=== PATIENT | female | born 1995 | race Caucasian/White ===

== ENCOUNTER → 2018-07-07 | Outpatient (REF) | payer OTHER | LOC: M SFHCLERA 09:52 | PROVIDERS: ATTEND Physician Assistant | DX: R05 Cough (principal) ==

== ENCOUNTER 2018-07-24 20:20 | Inpatient (IN) | payer OTHER ==
[~2018-07-24] VITALS: Ht 157.5 cm; Wt 49.1 kg
[2018-07-24] MEDS ORDERED: NS 500 ML IV ONE (21:00)
[2018-07-24 21:21] LABS: BASO # 0.1 10^3/uL (0.0-0.2); BASO % 0.8 % (0.0-1.0); EOS # 0.4 10^3/uL (0.0-0.50); EOS % 4.9 % (0.0-3.0); HEMATOCRIT 38.9 % (36.0-47.0); LYMPH # 1.7 10^3/uL (1.5-6.5); LYMPH % 23.2 % (24.0-44.0); MEAN CORPUSCULAR HEMOGLOBIN 29.1 pg (27.0-33.0); MEAN CORPUSCULAR HGB CONC 33.4 g/dl (32.0-36.5); MONO # 0.7 10^3/uL (0.0-0.8); MONO % 9.9 % (0.0-5.0); NEUTROPHILS # 4.5 10^3/uL (1.8-7.7); NEUTROPHILS % 60.9 % (36.0-66.0); PLATELET COUNT, AUTOMATED 264 10^3/uL (150-450); RED BLOOD COUNT 4.47 10^6/uL (4.00-5.40); WHITE BLOOD COUNT 7.4 10^3/uL (4.0-10.0)
[2018-07-24 21:52] LABS: INR 0.98; PROTHROMBIN TIME 13.1 SECONDS (12.1-14.4)
[2018-07-24 21:53] LABS: PARTIAL THROMBOPLASTIN TIME 29.7 SECONDS (25.4-37.6)
[2018-07-24 21:54] LABS: ALBUMIN 3.7 GM/DL (3.2-5.2); ALT/SGPT 45 U/L (12-78); BILIRUBIN,DIRECT < 0.1 MG/DL (0.0-0.2); BILIRUBIN,TOTAL 0.3 MG/DL (0.2-1.0); BLOOD UREA NITROGEN 14 MG/DL (7-18); CALCIUM LEVEL 8.3 MG/DL (8.5-10.1); CARBON DIOXIDE LEVEL 29 MEQ/L (21-32); CHLORIDE LEVEL 105 MEQ/L (98-107); CREATININE FOR GFR 0.74 MG/DL (0.55-1.30); GLOMERULAR FILTRATION RATE > 60.0 (>60); GLUCOSE, FASTING 113 MG/DL (70-100); HCG, SERUM QUANTITATIVE < 1.0 MIU/ML; POTASSIUM SERUM 4.1 MEQ/L (3.5-5.1); SODIUM LEVEL 141 MEQ/L (136-145); THYROXINE (T4) 8.3 UG/DL (4.5-12.0); TOTAL PROTEIN 7.1 GM/DL (6.4-8.2)
[2018-07-24] MEDS ORDERED: ISOVUE-370 76% 100ML VIAL (Q9967) As Ordered ONE (22:01)
--- NOTE | 2018-07-24 23:19 | REPVR ---
EXAM: CT Angiography Chest With Contrast EXAM DATE/TIME: 07/24/2018 10:23 PM CLINICAL HISTORY: 23 years old, female; Signs and symptoms; Other: Hemoptysis TECHNIQUE: Axial computed tomographic angiography images of the chest with intravenous contrast using CT angiography protocol. All CT scans at this facility use at least one of these dose optimization techniques: automated exposure control; mA and/or kV adjustment per patient size (includes targeted exams where dose is matched to clinical indication); or iterative reconstruction. Coronal and sagittal reformatted images were created and reviewed. MIP reconstructed images were created and reviewed. CONTRAST: 75 ml of ISOVUE 370 administered intravenously. COMPARISON: CR Chest, 2 view PA, Lat 07/24/2018 8:59 PM FINDINGS: Pulmonary arteries: There is opacification in of the pulmonary artery is with no evidence of pulmonary embolus. Aorta: There is opacification in of the aorta. The aorta appears intact. Thyroid: 1 CM low-density nodule of the isthmus of the thyroid. There is 1.7 CM round nodule of the right lobe of the thyroid. I would recommend thyroid ultrasound for further evaluation of these nodules especially the dominant nodule right. Lungs: There are approximately 10 small areas of density throughout the right lung some of which are nodular in appearance and range in size from 5 mm to 1 CM. There are approximately 6 small densities throughout the left lung ranging in size from 5 mm to 1 centimeter. Some of these are also nodular. In addition at the right and also left cardiophrenic angle of the lung are patchy areas of infiltrate with bronchiectasis. Peribronchial cuffing and bronchiectasis is noted throughout both lungs. Considerations would include cystic fibrosis, sarcoidosis, histiocytosis, granulomatous disease. Patchy areas of pneumonic infiltrate associated with bronchiectasis. Metastatic nodules in the lungs, thought less likely with this appearance but not completely excluded. Opportunistic infection would be a consideration. Bronchoscopy or biopsy may be necessary for further evaluation of this. Pleural space: There is no evidence of pneumothorax. There is no evidence of pleural effusion. Heart: The heart is normal in size and there is no evidence of pericardial effusion. Pancreas: Multiple calcifications tail of the pancreas which can be seen with chronic pancreatitis. 2 CM cystic lesion near the tail of the pancreas could be benign or malignant. Lymph nodes: There are small lymph nodes right and left axilla. There is small to moderate sized lymph nodes/lymphoid tissue at the right hilar region. IMPRESSION: 1. No evidence of pulmonary embolus. 2. Small densities ranging in size from 5 mm to 1 CM throughout the right and left lung, 10 on the right and 6 on the left. Associated increased lymphoid tissue in the right parahilar region. Associated bronchiectasis throughout both lungs. Patchy areas of infiltrate and bronchiectasis right and left cardiophrenic angle of the lung. Lung differential considerations listed above. Bronchoscopy or biopsy of the lung may be necessary for further evaluation. 3. 1.7 CM nodule right lobe of the thyroid recommend thyroid ultrasound. 4. 2 CM cystic lesion tail of the pancreas may be benign or malignant. Electronically signed by: Leobardo Botello On 07/24/2018 23:19:24 PM
[2018-07-24] MEDS ORDERED: LINEZOLID 600 MG in APPROPRIATE DILUENT 1 EA IV ONE (23:45)
[2018-07-24] MEDS ORDERED: PIPERACILLIN/TAZOBACTAM SOD 3.375 GM in D5W MINI-BAG PLUS 50 ML IV ONE (23:45)
[2018-07-25] MEDS ORDERED: CREO24CA PO ×2 (00:01)
[2018-07-25] MEDS ORDERED: ONDA4TAB5 PO (00:01)
[2018-07-25] MEDS ORDERED: SODI7NEB3 INH (00:01)
[2018-07-25] MEDS ORDERED: PULM1SOL INH (00:01)
[2018-07-25] MEDS ORDERED: TYLE325T5 PO (00:01)
[2018-07-25] MEDS ORDERED: PROAAER10 INH (00:01)
[2018-07-25] MEDS ORDERED: ALBU83IN INH (00:01)
[2018-07-25] MEDS ORDERED: ADV250INH INH (00:01)
[2018-07-25] MEDS ORDERED: ONDANSETRON 4MG/2ML VIAL (J2405) IV PRN (00:15)
[2018-07-25] MEDS ORDERED: GLUCOSE 4 GM CHEW TABLET PO PRN (00:30)
[2018-07-25] MEDS ORDERED: ONDANSETRON 4 MG TAB (S0181) PO PRN (00:30)
[2018-07-25] MEDS ORDERED: DEXTROSE 50% 50 ML SYRINGE IV PRN (00:30)
[2018-07-25] MEDS ORDERED: GLUCAGON FOR INJ 1 MG VIAL (J1610) SC PRN (00:30)
[2018-07-25] MEDS ORDERED: SODIUM CHLORIDE 0.9% 3ML NEB SOLUTION FOR INHALATION INH PRN (00:30)
[2018-07-25] MEDS ORDERED: CREON-24 CAPSULE PO PRN (00:30)
[2018-07-25] MEDS: IPRATROPIUM 0.5MG/ALBUTEROL 2.5MG INH SOL UD 3ML (DUONEB)(J7620) NEB SCH ×4 (02:00→20:45)
[2018-07-25] MEDS: ACETAMINOPHEN TAB 650MG DOSE (2X325MG) PO PRN ×3 (02:07→18:08)
[2018-07-25 05:39] LABS: TROPONIN I < 0.02 NG/ML (< 0.10)
--- NOTE | 2018-07-25 06:58 | HPE ---
DATE OF ADMISSION: 07/25/2018 CHIEF COMPLAINT: Hemoptysis for the previous 24 hours. HISTORY OF PRESENT ILLNESS: The patient is a 23-year-old female with significant past medical history of cystic fibrosis diagnosed at age 1. She recently moved here from [place] this past March of 2018 and follows at [facility] with a Dr. Harvey. She presents to the emergency room with a cough of bloody sputum, hemoptysis that started today. Previously, patient states she was battling an upper respiratory infection (URI) and had respiratory syncytial virus (RSV) approximately two weeks ago. She recently completed two courses of antibiotics previously, it was Bactrim and Levaquin, and most recently Cipro and doxycycline, for what was methicillin-sensitive Staphylococcus aureus (MSSA) and forrest sensitive Pseudomonas in her sputum. She completed it several days ago. She presents today again with cough which she estimates her sputum bloody was about a half a teaspoon give or take that started this a.m. it has been lessening. She denies any fevers or chills or sick contacts. She denies any shortness of breath, but complains of a pleuritic chest pain which has been going on for the past 10 hours since her cough and bloody sputum started. She denies abdominal pain, nausea, vomiting, urinary symptoms, constipation or diarrhea. She is chronically on azithromycin and pancreatic replacement therapy. She was recently diagnosed with diabetes, however, has not yet started checking her fingersticks over covering herself with insulin. She has scheduled appointment to see an lyric writer in the upcoming weeks. Incidentally on the CT angio of the chest that was done to assess for pulmonary infection and rule out pulmonary embolus (PE), she was noted to have a 1.7 cm right thyroid lobe nodule as well as a 2 cm cystic lesion of the tail of the pancreas. PAST MEDICAL HISTORY: See history of present illness (HPI). PAST SURGICAL HISTORY: She has had appendectomy, tonsillectomy and adenoidectomy, as well as, sinus surgery. ALLERGIES: - VANCOMYCIN (she states that it causes hives and difficulty breathing) HOME MEDICATIONS: - pancreatic replacement therapy - Zofran - Advair - albuterol as needed - Pulmozyme - Tylenol as needed - chronic azithromycin therapy SOCIAL HISTORY: She denies tobacco, alcohol or illicit drug use. FAMILY HISTORY: Heart disease. REVIEW OF SYSTEMS: A 12-point review of systems was completed, all of which were negative except those listed in the HPI. VITAL SIGNS: Temperature 98.6, pulse 74, respirations 20, satting at 99% on room air room, blood pressure 113/79. PHYSICAL EXAMINATION: General: She is well nourished in no apparent distress. Head: Normocephalic, atraumatic. Eyes: Extraocular movements are intact. Pupils equal, round and reactive to light. Neck is supple. No jugular venous pulse (JVP). Lungs: No discernible wheezing or crackles. Cardiovascular: Regular rate and rhythm. Normal S1, S2. No murmurs, gallops or rubs. Abdomen: Soft. Nontender. Nondistended. Positive bowel sounds. No rebound. No guarding. Extremities: No pitting edema or calf tenderness. Skin appears to be intact. No rashes, lesions or breakdown. Neurological Exam: Alert and oriented times three. No focal deficit appreciated on the exam. LABS AND IMAGING: Done in the emergency room, white cell count 7, hemoglobin/hematocrit (H/H) 13/38, platelet count 264. Coags within normal limits. Chemistry shows a BUN and creatinine of 14 over 0.74. TSH within normal limits. Imaging completed in the emergency room with CT angio of the chest showing no pulmonary embolus (PE), small densities ranging in size from 5 mm to 1 cm throughout the right and left lung, 10 on the right and 6 on the left, associated bronchiectasis throughout both lungs, patchy areas of infiltrate and bronchiectasis right and left, 1.7 cm nodule right lobe of the thyroid, 2 cm cystic lesion of the tail of the pancreas that may be benign or malignant. ASSESSMENT AND PLAN: Hemoptysis secondary to exacerbation of cystic fibrosis likely secondary to pneumonia. Will place the patient on linezolid and Zosyn. The [facility] was contacted, Dr. Harvey, contact . He states that double Pseudomonal coverage is not necessary and would like the patient to be transferred to [facility] once weather conditions are conducive to such and a bed becomes available. In the meantime, will treat her with Zyvox and Zosyn. Sputum culture, urine Legionella, urine Pneumococcal antigen. Oxygen as needed to maintain saturations greater than 94%. Continue Advair as well as DuoNebs. Pulmozyme is non formulary. For complications of cystic fibrosis with exocrine and endocrine pancreatic insufficiency, the patient has not yet started on insulin. Will check for now and cover with insulin sliding scale. Will continue her pancreatic replacement enzyme. For thyroid nodule, 1.7 cm and TSH within normal limits, will get an ultrasound of the thyroid. The patient would likely benefit from a fine needle aspiration biopsy of the thyroid gland which possibly can be done in the outpatient setting. For cystic lesion of the pancreatic tail, this is possibly secondary to chronic scarring of the effects of the cystic fibrosis on the exocrine and endocrine pancreas. To assess for any features of malignancy, the patient would likely benefit from MRI of the pancreas which, again, can be done once patient is transferred or in the outpatient setting. Supportive deep vein thrombosis (DVT) prophylaxis, sequential compression devices (SCDS). Gastrointestinal (GI) prophylaxis is not indicated. DIET: Diabetic diet. DISPOSITION: The patient to be transferred to [facility] cystic fibrosis specialty service once traveling conditions are conducive and bed becomes available. Her cystic fibrosis doctor is Dr. Harvey. His contact number is . Again, patient is to be transferred, accepting, and this lady is aware once conditions are conducive and a bed becomes available.
[2018-07-25] MEDS: HumaLOG INSULIN (NovoLOG) PER UNIT SC SCH ×3 (07:30→18:09)
--- NOTE | 2018-07-25 07:43 | REP ---
Clinical: Cough and dyspnea . Technique: PA and lateral. Comparison: None . Findings: The mediastinum and cardiac silhouette are normal. Subtle retrocardiac left lower lobe atelectasis suggested. No focal consolidation, effusion, or pneumothorax. Skeletal structures intact. Impression: Bronchiolitis with left lower lobe atelectasis. Electronically Signed by Shree Cox MD 07/25/2018 07:35 A
--- NOTE | 2018-07-25 07:56 | REP ---
Clinical: Thyroid nodule. Technique: Real time boswell scale and color evaluation using linear high frequency and curved array transducers. Findings: Thyroid gland is normal in size. Multiple scattered nonspecific complex cystic nodules are appreciated bilaterally. Isthmus includes a 1.4 x 0.6 x 1.0 cm cyst with small mural nodule and smaller 0.5 x 0.3 x 0.4 cm cyst. Right lobe measures 4.9 x 1.7 x 1.8 cm and includes 1.0 x 0.7 x 0.8 cm upper pole nodule along with 1.0 x 0.7 x 0.7 cm and 1.6 x 1.3 x 1.2 cm complex cystic nodules in the mid pole. Left lobe measures 4.5 x 1.5 x 1.7 cm and includes 0.8 x 0.4 x 0.6 cm and 1.0 x 0.5 x 0.7 cm complex nodules in the mid to upper pole along with a 0.2 x 0.1 x 0.2 cm cyst at the mid pole. Impression: Scattered complex cystic nodules relatively nonspecific in appearance. Electronically Signed by Shree Cox MD 07/25/2018 07:47 A
[2018-07-25] MEDS ORDERED: PIPERACILLIN/TAZOBACTAM SOD 3.375 GM in D5W MINI-BAG PLUS 50 ML IV SCH (08:00)
[2018-07-25] MEDS ORDERED: ADVAIR HFA 115/21MCG INHALER INH SCH (08:00)
[2018-07-25] MEDS: CREON-24 CAPSULE PO SCH ×3 (08:00→18:08)
[2018-07-25] MEDS: ADVAIR HFA 115/21MCG INHALER INH SCH ×2 (08:26→20:42)
[2018-07-25 08:30] VITALS: BP 102/57
[2018-07-25 10:02] LABS: HEMATOCRIT 39.3 % (36.0-47.0); HEMOGLOBIN 13.1 g/dl (12.0-15.5); MEAN CORPUSCULAR HEMOGLOBIN 29.1 pg (27.0-33.0); MEAN CORPUSCULAR HGB CONC 33.3 g/dl (32.0-36.5); MEAN CORPUSCULAR VOLUME 87.3 fl (80.0-96.0); PLATELET COUNT, AUTOMATED 241 10^3/uL (150-450)
[2018-07-25 10:39] LABS: BLOOD UREA NITROGEN 9 MG/DL (7-18); CALCIUM LEVEL 7.9 MG/DL (8.5-10.1); CARBON DIOXIDE LEVEL 25 MEQ/L (21-32); CHLORIDE LEVEL 106 MEQ/L (98-107); CREATININE FOR GFR 0.87 MG/DL (0.55-1.30); GLOMERULAR FILTRATION RATE > 60.0 (>60); GLUCOSE, FASTING 195 MG/DL (70-100); POTASSIUM SERUM 3.5 MEQ/L (3.5-5.1); SODIUM LEVEL 139 MEQ/L (136-145)
[2018-07-25] MEDS: LINEZOLID 600 MG in APPROPRIATE DILUENT 1 EA IV SCH ×2 (11:00→18:08)
[2018-07-25] MEDS: PHYTONADIONE 5 MG TAB PO SCH (11:00)
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
[2018-07-25] MEDS ORDERED: LINEZOLID 600 MG in APPROPRIATE DILUENT 1 EA IV SCH (13:00)
[2018-07-25 14:00] VITALS: BP 102/56
[2018-07-25] MEDS: D5W IV SCH ×2 (14:22→23:11)
[2018-07-25] MEDS: TAZOBACTAM SOD IV SCH ×2 (14:22→23:11)
[2018-07-25] MEDS: PIPERACILLIN IV SCH ×2 (14:22→23:11)
[2018-07-25] MEDS: MATE ADAPTER IV SCH ×2 (14:22→23:11)
[2018-07-25] MEDS: traMADol 50 MG TAB PO PRN (14:23)
[2018-07-25] MEDS ORDERED: ENTER DRUG NAME HERE (PATIENT'S OWN MED) INH SCH (21:00)
[2018-07-25 22:00] VITALS: BP 96/51
[2018-07-25] MEDS ORDERED: NAPROXEN 250 MG TAB PO ONE (22:30)
[2018-07-26] MEDS: IPRATROPIUM 0.5MG/ALBUTEROL 2.5MG INH SOL UD 3ML (DUONEB)(J7620) NEB SCH ×4 (01:43→20:13)
--- NOTE | 2018-07-26 02:03 | REPVR ---
EXAM: CT Head Without Contrast EXAM DATE/TIME: 07/26/2018 1:04 AM CLINICAL HISTORY: 23 years old, female; Injury or trauma; Fall; Injury date: 07/24; Injury details: Headache since fall 2 days ago; Additional info: S/P fall. Headache TECHNIQUE: Axial computed tomography images of the head/brain without contrast. All CT scans at this facility use at least one of these dose optimization techniques: automated exposure control; mA and/or kV adjustment per patient size (includes targeted exams where dose is matched to clinical indication); or iterative reconstruction. COMPARISON: Thyroid, ST head+neck US 07/25/2018 12:40 AM FINDINGS: Brain: Normal. No hemorrhage. No significant white matter disease. No edema. Ventricles: Normal. No ventriculomegaly. Bones/joints: Unremarkable. No acute fracture. Sinuses: Opacification of the visualized maxillary sinuses. Moderate opacification of the ethmoidal air cells, right greater than left and near right frontal sinus. Complete opacification of left frontal sinus. Mastoid air cells: Visualized mastoid air cells are unremarkable. No mastoid effusion. Soft tissues: Unremarkable. IMPRESSION: 1. No intracranial abnormality. 2. Moderate sinus disease. Electronically signed by: Samantha Reis On 07/26/2018 02:02:53 AM
[2018-07-26] MEDS ORDERED: diphenhydrAMINE INJ 50MG/ML VIAL (J1200) IV ONE (02:15)
[2018-07-26] MEDS ORDERED: KETOROLAC 30 MG/ML VIAL (J1885) IV ONE (02:15)
[2018-07-26] MEDS ORDERED: METOCLOPRAMIDE INJ 10MG/2ML VIAL (J2765) IV ONE (02:15)
[2018-07-26] MEDS: LINEZOLID 600 MG in APPROPRIATE DILUENT 1 EA IV SCH ×4 (02:52→18:30)
[2018-07-26 05:55] LABS: HEMATOCRIT 35.2 % (36.0-47.0); HEMOGLOBIN 11.9 g/dl (12.0-15.5); MEAN CORPUSCULAR HEMOGLOBIN 29.4 pg (27.0-33.0); MEAN CORPUSCULAR HGB CONC 33.8 g/dl (32.0-36.5); MEAN CORPUSCULAR VOLUME 86.9 fl (80.0-96.0); PLATELET COUNT, AUTOMATED 228 10^3/uL (150-450); RED BLOOD COUNT 4.05 10^6/uL (4.00-5.40); WHITE BLOOD COUNT 4.9 10^3/uL (4.0-10.0)
[2018-07-26 06:00] VITALS: BP 100/55
[2018-07-26 06:18] LABS: BLOOD UREA NITROGEN 9 MG/DL (7-18); CALCIUM LEVEL 7.7 MG/DL (8.5-10.1); CARBON DIOXIDE LEVEL 26 MEQ/L (21-32); CHLORIDE LEVEL 106 MEQ/L (98-107); CREATININE FOR GFR 0.62 MG/DL (0.55-1.30); GLOMERULAR FILTRATION RATE > 60.0 (>60); GLUCOSE, FASTING 143 MG/DL (70-100); POTASSIUM SERUM 3.8 MEQ/L (3.5-5.1); SODIUM LEVEL 139 MEQ/L (136-145)
[2018-07-26] MEDS: ADVAIR HFA 115/21MCG INHALER INH SCH ×2 (07:53→20:13)
[2018-07-26] MEDS: CREON-24 CAPSULE PO SCH ×3 (08:22→17:11)
[2018-07-26] MEDS: HumaLOG INSULIN (NovoLOG) PER UNIT SC SCH ×3 (08:22→17:07)
[2018-07-26] MEDS: PHYTONADIONE 5 MG TAB PO SCH (08:22)
[2018-07-26] MEDS: D5W IV SCH ×2 (08:32→16:46)
[2018-07-26] MEDS: PIPERACILLIN IV SCH ×2 (08:32→16:46)
[2018-07-26] MEDS: MATE ADAPTER IV SCH ×2 (08:32→16:46)
[2018-07-26] MEDS: TAZOBACTAM SOD IV SCH ×2 (08:32→16:46)
--- NOTE | 2018-07-26 11:56 | IPN ---
DATE: 07/26/2018 Kristi is [facility]. She is feeling better. There is no more hemoptysis. She is no short of breath. She has some sinusitis on a CT of the head and thyroid ultrasound was ordered by the admitting hospitalist and did show a 1.6 x 1.3 x 1.2 cm complex cystic nodule in the mid right lobe of the thyroid. Another one 1.0 x 0.7 x 0.8 upper lobe nodule. Left thyroid has a 1 x 0.5 x 0.7 cm complex nodule mid to upper lobe. Consideration for fine needle aspiration as an outpatient. PHYSICAL EXAMINATION: Blood pressure 100/55, pulse 67, respiratory rate 16, 98% oxygen saturation. General Appearance: Comfortable in no distress. HEENT: TM's normal, pharynx is benign. NECK: Shows a multinodular thyroid. No cervical adenopathy. LUNGS: Entirely clear. HEART: Regular rate and rhythm. ABDOMEN: Soft, nontender. No masses. No peripheral edema. SKIN: Exam shows that she has about a 1 cm darkly pigmented nevus over the left scapula with irregular borders and induration of pigment. IMPRESSION: 1. Cystic fibrosis exacerbation from presumed pulmonary infection. Per recommendations from her cystic fibrosis (CF) clinic/firmware engineer at [facility], she is on Zyvox 600 mg three times a day, Zosyn 13.5 grams by continuous effusion. She seems to be responding well to this. 2. Dysplastic nevus: Concerned about the nevus of her left scapula. I made her aware of this and need for followup. She should have dermatology referral by her primary provider after discharge. 3. Thyroid nodules: These might warrant fine needle aspiration. They are complex cystic and greater than 1 cm. This could be attended to by her outpatient provider. 4. Cystic lesion of the pancreas tail: This is probably from cystic fibrosis and I would defer to her providers at the cystic fibrosis clinic on whether this needs further workup. Patient's primary care physician is at [facility], I was unable to reach anybody there today and there is not even a way to leave a message. I impressed upon the patient the need for followup of both the skin lesion and thyroid nodules.
[2018-07-26] MEDS ORDERED: D5W IV SCH (12:00)
[2018-07-26] MEDS ORDERED: PIPERACILLIN IV SCH (12:00)
[2018-07-26] MEDS ORDERED: TAZOBACTAM SOD IV SCH (12:00)
[2018-07-26] MEDS ORDERED: MATE ADAPTER IV SCH (12:00)
[2018-07-26] MEDS: traMADol 50 MG TAB PO PRN (12:09)
[2018-07-26 14:00] VITALS: BP 100/62
[2018-07-26] MEDS: SODIUM CHLORIDE HYPERTONIC 3% 15ML NEB SOL INH PRN (20:13)
[2018-07-26 22:00] VITALS: BP 99/61
[2018-07-27] MEDS: traMADol 50 MG TAB PO PRN ×2 (00:13→15:18)
[2018-07-27] MEDS: D5W IV SCH ×3 (00:55→16:31)
[2018-07-27] MEDS: MATE ADAPTER IV SCH ×3 (00:55→16:31)
[2018-07-27] MEDS: TAZOBACTAM SOD IV SCH ×3 (00:55→16:31)
[2018-07-27] MEDS: PIPERACILLIN IV SCH ×3 (00:55→16:31)
[2018-07-27] MEDS: IPRATROPIUM 0.5MG/ALBUTEROL 2.5MG INH SOL UD 3ML (DUONEB)(J7620) NEB SCH ×4 (02:00→19:59)
[2018-07-27] MEDS: LINEZOLID 600 MG in APPROPRIATE DILUENT 1 EA IV SCH ×3 (03:11→18:11)
[2018-07-27 06:00] VITALS: BP 97/53
[2018-07-27 06:22] LABS: HEMATOCRIT 36.4 % (36.0-47.0); HEMOGLOBIN 11.8 g/dl (12.0-15.5); MEAN CORPUSCULAR HEMOGLOBIN 28.9 pg (27.0-33.0); MEAN CORPUSCULAR HGB CONC 32.4 g/dl (32.0-36.5); MEAN CORPUSCULAR VOLUME 89.2 fl (80.0-96.0); PLATELET COUNT, AUTOMATED 255 10^3/uL (150-450); RED BLOOD COUNT 4.08 10^6/uL (4.00-5.40); WHITE BLOOD COUNT 5.9 10^3/uL (4.0-10.0)
[2018-07-27 06:44] LABS: BLOOD UREA NITROGEN 9 MG/DL (7-18); CALCIUM LEVEL 8.1 MG/DL (8.5-10.1); CARBON DIOXIDE LEVEL 28 MEQ/L (21-32); CHLORIDE LEVEL 104 MEQ/L (98-107); CREATININE FOR GFR 0.73 MG/DL (0.55-1.30); GLOMERULAR FILTRATION RATE > 60.0 (>60); GLUCOSE, FASTING 133 MG/DL (70-100); SODIUM LEVEL 138 MEQ/L (136-145)
[2018-07-27] MEDS: ADVAIR HFA 115/21MCG INHALER INH SCH ×2 (08:07→19:59)
--- NOTE | 2018-07-27 09:16 | REP ---
Clinical: Lower chest pain. Technique: PA and lateral. Comparison: 07/24/2018. Findings: Mediastinum and cardiac silhouette are normal. No effusion. Subtle bibasilar atelectasis cannot be excluded. No pneumothorax. Skeletal structures intact. Impression: Mild bibasilar atelectasis suggested. Electronically Signed by Shree Cox MD 07/27/2018 09:07 A
[2018-07-27] MEDS: PHYTONADIONE 5 MG TAB PO SCH (09:20)
[2018-07-27] MEDS: HumaLOG INSULIN (NovoLOG) PER UNIT SC SCH ×3 (09:20→18:12)
[2018-07-27] MEDS: CREON-24 CAPSULE PO SCH ×3 (09:20→18:12)
--- NOTE | 2018-07-27 10:18 | PFTRPT ---
Height: 62.00 Inches Weight: 108.00 Lbs BSA: 1.47 Diagnosis: CF DATE OF PROCEDURE: 07/27/2018 ORDERING PROVIDER: Dr. Cardenas BEDSIDE SPIROMETRY: Spirometry: Study of excellent technical quality. Forced vital capacity reduced. FEV1 out of proportion. Obstructive index is, therefore, reduced. Flow Volume Loop: Expiratory limb of the flow volume loop does suggest some degree of flow rate limitation. IMPRESSION: At least mild obstructive ventilatory impairment with air trapping versus true concomitant restriction. Full study recommended. MTDD
--- NOTE | 2018-07-27 13:26 | IPN ---
DATE OF SERVICE: 07/27/2018 Kristi has some pleuritic discomfort of both bases this morning. This resolved by the time I rounded on her. She says she feels better than yesterday. There has been no fever. At once (STAT) chest x-ray did show a bit of atelectasis. PHYSICAL EXAMINATION: Vital signs stable. No fever. LUNGS: Were quite clear. HEART: Regular rate and rhythm. ABDOMEN: Soft, nontender. No peripheral edema. Dysplastic nevus over the left scapula as noted previously. LABORATORIES: Complete blood count (CBC) unremarkable. Electrolytes unremarkable. IMPRESSION: 1. Exacerbation of cystic fibrosis. Treatment plan summarized yesterday per her ophthalmic medical assistant at [facility] ([facility] 2. Dysplastic nevus. She needs a dermatology referral by her primary care provider after discharge. 3. Thyroid nodules. Probably needs fine-needle aspiration as an outpatient. Bedside pulmonary function tests (PFTs) were performed today. Per patient, her FEV1 is actually better than her baseline. We faxed these down to [facility].
[2018-07-27 14:00] VITALS: BP 104/61
[2018-07-27] MEDS: OXYMETAZOLINE NASAL SPRAY (AFRIN) SCH ×2 (18:49→20:25)
[2018-07-27] MEDS: SODIUM CHLORIDE HYPERTONIC 3% 15ML NEB SOL INH PRN (20:00)
[2018-07-27 22:00] VITALS: BP 102/68
[2018-07-28] MEDS: D5W IV SCH ×3 (00:33→17:08)
[2018-07-28] MEDS: PIPERACILLIN IV SCH ×3 (00:33→17:08)
[2018-07-28] MEDS: TAZOBACTAM SOD IV SCH ×3 (00:33→17:08)
[2018-07-28] MEDS: MATE ADAPTER IV SCH ×3 (00:33→17:08)
[2018-07-28] MEDS: IPRATROPIUM 0.5MG/ALBUTEROL 2.5MG INH SOL UD 3ML (DUONEB)(J7620) NEB SCH ×5 (01:19→20:00)
[2018-07-28] MEDS: LINEZOLID 600 MG in APPROPRIATE DILUENT 1 EA IV SCH ×3 (03:12→20:39)
[2018-07-28 06:00] VITALS: BP 107/66
[2018-07-28 06:53] LABS: HEMATOCRIT 37.6 % (36.0-47.0); HEMOGLOBIN 12.5 g/dl (12.0-15.5); MEAN CORPUSCULAR HEMOGLOBIN 29.1 pg (27.0-33.0); MEAN CORPUSCULAR HGB CONC 33.2 g/dl (32.0-36.5); MEAN CORPUSCULAR VOLUME 87.6 fl (80.0-96.0); PLATELET COUNT, AUTOMATED 260 10^3/uL (150-450); RED BLOOD COUNT 4.29 10^6/uL (4.00-5.40); WHITE BLOOD COUNT 5.8 10^3/uL (4.0-10.0)
[2018-07-28 07:16] LABS: BLOOD UREA NITROGEN 10 MG/DL (7-18); CALCIUM LEVEL 8.5 MG/DL (8.5-10.1); CARBON DIOXIDE LEVEL 30 MEQ/L (21-32); CHLORIDE LEVEL 102 MEQ/L (98-107); CREATININE FOR GFR 0.68 MG/DL (0.55-1.30); GLOMERULAR FILTRATION RATE > 60.0 (>60); GLUCOSE, FASTING 122 MG/DL (70-100); POTASSIUM SERUM 4.2 MEQ/L (3.5-5.1); SODIUM LEVEL 137 MEQ/L (136-145)
[2018-07-28] MEDS: HumaLOG INSULIN (NovoLOG) PER UNIT SC SCH ×3 (08:24→17:25)
[2018-07-28] MEDS: PHYTONADIONE 5 MG TAB PO SCH (08:24)
[2018-07-28] MEDS: CREON-24 CAPSULE PO SCH ×3 (08:24→18:27)
[2018-07-28] MEDS: OXYMETAZOLINE NASAL SPRAY (AFRIN) SCH ×4 (08:25→20:40)
[2018-07-28] MEDS: ADVAIR HFA 115/21MCG INHALER INH SCH ×2 (08:42→20:00)
[2018-07-28] MEDS ORDERED: LIDOCAINE 1% MDV 20ML VIAL As Ordered ONE (10:55)
[2018-07-28] MEDS ORDERED: LORazepam 1 MG TAB PO ONE (11:00)
[2018-07-28] MEDS ORDERED: LORazepam 1 MG TAB As Ordered ONE (11:02)
--- NOTE | 2018-07-28 11:26 | IPN ---
DATE: 07/28/2018 Kristi continues to do well. She is not having any significant shortness of breath or any recurrence of pleuritic pain. She is up and ambulating. I do not have her on deep venous thrombosis (DVT) prophylaxis. She ambulates frequently. No fever. IMPRESSION: 1. Exacerbation of cystic fibrosis from presumed pulmonary infection. She is responding to her currently prescribed antibiotics. Bedside pulmonary function test (PFT) are on the chart, but at this point, I think we could probably be thinking about possible discharge home this week with home IV antibiotics. They are recommending 10 days of high dose Zyvox (this is day #4) and 14 days of continuous infusion Zosyn (this is also day #4). 2. Dysplastic nevus. Needs dermatology referral as an outpatient. She is aware of this; could not reach [facility] to try to set this up. 3. Thyroid nodules. Fine-needle aspiration to be considered as an outpatient. Dr. Sonia Damico will be assuming her care in the morning. Dr. Koehler at [facility] has been my lathe operator contact lens on her. I left a message on his phone to call me so I could update on her stable clinical course.
[2018-07-28] MEDS: traMADol 50 MG TAB PO PRN ×2 (13:25→20:40)
[2018-07-28 14:00] VITALS: BP 133/70
--- NOTE | 2018-07-28 17:55 | REP ---
Procedure: PICC line insertion with Dimas The procedure was performed under the direct supervision of Dr. Landry. The risks and benefits of the procedure were explained to the patient and informed consent was obtained. The left brachial vein was localized using ultrasound guidance. The skin was prepped and draped in a sterile fashion. 2% lidocaine was used as a local anesthetic. Using ultrasound guidance the brachial vein was cannulated and a 0.018 guidewire was inserted and advanced to the SVC using fluoroscopic guidance. The needle was removed and a 5.5 Mexican dilator and peel-away sheath was inserted over the guide wire. A 5.5 Mexican dual lumen catheter was cut to length of 41 cm. The dilator was removed and the catheter was inserted over the guide wire with the tip ending in the SVC. The peel-away sheath was removed and the catheter was flushed with heparinized saline as per Hospital protocol. The catheter was affixed to the skin and a sterile dressing was applied. The patient tolerated the procedure well and there were no immediate complications. 0.2 minutes of fluoro time was utilized for this procedure. Reviewed by BERE Adhikari 07/28/2018 03:27 P Electronically Signed by Alli Landry MD 07/28/2018 05:47 P
[2018-07-28] MEDS: SODIUM CHLORIDE 0.9% INJ 10 ML SYR IV SCH (18:00)
[2018-07-28 22:00] VITALS: BP 108/67
[2018-07-29] MEDS: MATE ADAPTER IV SCH ×3 (01:18→17:48)
[2018-07-29] MEDS: TAZOBACTAM SOD IV SCH ×3 (01:18→17:48)
[2018-07-29] MEDS: D5W IV SCH ×3 (01:18→17:48)
[2018-07-29] MEDS: PIPERACILLIN IV SCH ×3 (01:18→17:48)
[2018-07-29] MEDS: IPRATROPIUM 0.5MG/ALBUTEROL 2.5MG INH SOL UD 3ML (DUONEB)(J7620) NEB SCH ×4 (01:51→20:00)
[2018-07-29] MEDS: LINEZOLID 600 MG in APPROPRIATE DILUENT 1 EA IV SCH ×3 (03:38→18:39)
[2018-07-29] MEDS: SODIUM CHLORIDE 0.9% INJ 10 ML SYR IV SCH ×2 (05:57→17:49)
[2018-07-29 06:00] VITALS: BP 96/54
[2018-07-29 06:19] LABS: HEMATOCRIT 39.8 % (36.0-47.0); MEAN CORPUSCULAR HEMOGLOBIN 29.1 pg (27.0-33.0); MEAN CORPUSCULAR HGB CONC 32.7 g/dl (32.0-36.5); PLATELET COUNT, AUTOMATED 266 10^3/uL (150-450); RED BLOOD COUNT 4.47 10^6/uL (4.00-5.40); WHITE BLOOD COUNT 6.5 10^3/uL (4.0-10.0)
[2018-07-29 06:37] LABS: BLOOD UREA NITROGEN 14 MG/DL (7-18); CALCIUM LEVEL 8.4 MG/DL (8.5-10.1); CARBON DIOXIDE LEVEL 29 MEQ/L (21-32); CHLORIDE LEVEL 102 MEQ/L (98-107); CREATININE FOR GFR 0.73 MG/DL (0.55-1.30); GLOMERULAR FILTRATION RATE > 60.0 (>60); GLUCOSE, FASTING 150 MG/DL (70-100); POTASSIUM SERUM 4.4 MEQ/L (3.5-5.1); SODIUM LEVEL 137 MEQ/L (136-145)
[2018-07-29] MEDS: ADVAIR HFA 115/21MCG INHALER INH SCH ×2 (08:33→20:42)
[2018-07-29 09:20] VITALS: BP 100/64
[2018-07-29 09:30] VITALS: BP 100/64
[2018-07-29] MEDS: PHYTONADIONE 5 MG TAB PO SCH (09:38)
[2018-07-29] MEDS: HumaLOG INSULIN (NovoLOG) PER UNIT SC SCH ×3 (09:38→18:39)
[2018-07-29] MEDS: CREON-24 CAPSULE PO SCH ×3 (09:39→17:48)
[2018-07-29] MEDS: OXYMETAZOLINE NASAL SPRAY (AFRIN) SCH ×4 (09:39→20:56)
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
[2018-07-29 14:00] VITALS: BP 97/53
[2018-07-29] MEDS: SODIUM CHLORIDE 0.9% INJ 10 ML SYR IV PRN (20:56)
[2018-07-29 22:00] VITALS: BP 113/63
--- NOTE | 2018-07-29 23:45 | IPN ---
DATE: 07/29/2018 SUBJECTIVE: The patient tells me she continues to feel better every day. She is now back to normal. She denies fevers, chills, chest pain or shortness of breath, reports at her baseline. OBJECTIVE: VITAL SIGNS: Temperature 97.1, pulse 82, respiratory rate 18, blood pressure 100/64, oxygen saturation 96% on room air. GENERAL: She is a very pleasant young female sitting up in bed. She does not appear to be in acute distress, speaking in complete sentences. HEENT: Cranial nerves II-XII are grossly intact. She has moist mucous membranes. No elevation of central venous pressure (CVP). CARDIOVASCULAR EXAM: S1, S2, regular. RESPIRATORY EXAM: Actually quite clear. ABDOMINAL EXAM: Benign. EXTREMITIES: No clubbing, cyanosis, or edema. LABORATORY STUDIES: WBC 6.5, hemoglobin 13.0, platelet count 266. Chemistry panel: Sodium 137, potassium 4.4, chloride 102, bicarbonate 29, BUN 14, creatinine 0.7. Microbiology unchanged from 07/24/2018. ASSESSMENT AND PLAN: This is a 23-year-old female with cystic fibrosis. PROBLEMS: 1. Exacerbation of cystic fibrosis. Dr. Cardenas had been in contact with the offices in [place]. The recommendation was that she complete 10 days of Zyvox - today is day #5, 14 days of continuous Zosyn - today is day #5. At this time, there are no beds in [place]. I will begin to arrange for home IV antibiotics with the help of patient and family services (PFS). 2. Dysplastic nevus. Outpatient dermatology referral through the [facility]. 3. Thyroid nodule. Fine needle aspiration could be considered in the outpatient setting. DISPOSITION: Home IV antibiotics arrangement possibly within the next 48 hours.
[2018-07-30] MEDS: TAZOBACTAM SOD IV SCH ×3 (00:30→20:48)
[2018-07-30] MEDS: MATE ADAPTER IV SCH ×3 (00:30→20:48)
[2018-07-30] MEDS: D5W IV SCH ×3 (00:30→20:48)
[2018-07-30] MEDS: PIPERACILLIN IV SCH ×3 (00:30→20:48)
[2018-07-30] MEDS: IPRATROPIUM 0.5MG/ALBUTEROL 2.5MG INH SOL UD 3ML (DUONEB)(J7620) NEB SCH ×4 (02:00→23:14)
[2018-07-30] MEDS: LINEZOLID 600 MG in APPROPRIATE DILUENT 1 EA IV SCH (02:11)
[2018-07-30] MEDS: SODIUM CHLORIDE 0.9% INJ 10 ML SYR IV SCH ×2 (02:12→18:45)
[2018-07-30 06:00] VITALS: BP 102/53
[2018-07-30 06:18] LABS: HEMATOCRIT 39.7 % (36.0-47.0); HEMOGLOBIN 12.9 g/dl (12.0-15.5); MEAN CORPUSCULAR HGB CONC 32.5 g/dl (32.0-36.5); MEAN CORPUSCULAR VOLUME 89.2 fl (80.0-96.0); PLATELET COUNT, AUTOMATED 270 10^3/uL (150-450); RED BLOOD COUNT 4.45 10^6/uL (4.00-5.40); WHITE BLOOD COUNT 5.5 10^3/uL (4.0-10.0)
[2018-07-30 06:43] LABS: BLOOD UREA NITROGEN 14 MG/DL (7-18); CALCIUM LEVEL 8.8 MG/DL (8.5-10.1); CARBON DIOXIDE LEVEL 27 MEQ/L (21-32); CHLORIDE LEVEL 103 MEQ/L (98-107); CREATININE FOR GFR 0.73 MG/DL (0.55-1.30); GLOMERULAR FILTRATION RATE > 60.0 (>60); GLUCOSE, FASTING 107 MG/DL (70-100); POTASSIUM SERUM 3.9 MEQ/L (3.5-5.1); SODIUM LEVEL 137 MEQ/L (136-145)
[2018-07-30] MEDS ORDERED: TAZOBACTAM SOD IV SCH (08:04)
[2018-07-30] MEDS ORDERED: D5W IV SCH (08:04)
[2018-07-30] MEDS ORDERED: PIPERACILLIN IV SCH (08:04)
[2018-07-30] MEDS ORDERED: MATE ADAPTER IV SCH (08:04)
[2018-07-30] MEDS: ADVAIR HFA 115/21MCG INHALER INH SCH ×2 (08:10→20:15)
[2018-07-30] MEDS: HumaLOG INSULIN (NovoLOG) PER UNIT SC SCH ×3 (09:29→18:44)
[2018-07-30] MEDS: CREON-24 CAPSULE PO SCH ×3 (09:29→18:45)
[2018-07-30] MEDS: PHYTONADIONE 5 MG TAB PO SCH (09:29)
[2018-07-30] MEDS: OXYMETAZOLINE NASAL SPRAY (AFRIN) SCH ×2 (09:29→13:00)
[2018-07-30] MEDS: LINEZOLID 600MG TABLET (ZYVOX) PO SCH ×2 (12:57→23:28)
[2018-07-30] MEDS: traMADol 50 MG TAB PO PRN ×2 (12:57→16:03)
[2018-07-30 14:00] VITALS: BP 102/64
--- NOTE | 2018-07-30 19:13 | REPVR ---
EXAM: US Left Duplex Upper Extremity Veins, Limited EXAM DATE/TIME: 07/30/2018 6:33 PM CLINICAL HISTORY: 23 years old, female; Pain; Arn, upper; Left TECHNIQUE: Real-time Duplex ultrasound of the Left Upper Extremity with 2-D boswell scale, color Doppler flow and spectral waveform analysis. Limited exam focused on the left upper extremity veins. COMPARISON: No relevant prior studies available. FINDINGS: Left deep veins: PICC line in place. Internal jugular, subclavian, axillary and brachial veins patent without thrombus. Normal compressibility, augmentation response and/or Doppler waveforms. Left superficial veins: Visualized cephalic and basilic veins patent without thrombus. Soft tissues: Two heterogeneous nodules in the left lobe of the thyroid gland, measuring 0.7 x 0.5 x 0.6 cm and 0.9 x 0.4 x 0.6 cm. IMPRESSION: 1. No sonographic evidence of deep vein thrombosis. 2. Two heterogeneous nodules in the left lobe of the thyroid gland, measuring 0.7 x 0.5 x 0.6 cm and 0.9 x 0.4 x 0.6 cm. No followup is indicated at this time. Electronically signed by: Nhan Obrien On 07/30/2018 19:13:12 PM
[2018-07-30] MEDS: PERCOCET 5MG/325MG TAB PO PRN (20:49)
[2018-07-30 22:00] VITALS: BP 109/68
--- NOTE | 2018-07-30 22:04 | IPN ---
DATE: 07/30/2018 SUBJECTIVE: Substance abuse. OBJECTIVE: VITAL SIGNS: Temperature 97.3, pulse 79, respiratory rate 11. She does not appear in acute distress. Extraocular muscles intact. She has moist mucous membranes. No elevation of jugular venous pressure. Cardiovascular: S1, S2 regular. Respiratory examination: Quite clear. Extremities: No clubbing or cyanosis. LABORATORY STUDY: White blood count (WBC) 5.5, hemoglobin 12.9, platelet count 270. Chemistry: Sodium 137, potassium 3.9, chloride 103, bicarbonate 27, BUN 14, creatinine 0.7. No new microbiology or imaging. ASSESSMENT AND PLAN: This is a 23-year-old female with exacerbation of cystic fibrosis. PROBLEMS: 1. Exacerbation of cystic fibrosis. [facility]'s help has been greatly appreciated. They recommended to complete 10 days of Zyvox and 14 days of Zosyn, today is day 6 of these therapies. We are attempting to arrange for home infusion of continuous Zosyn. She was then transitioned to by mouth Zyvox today. [facility] (PFS) help was greatly appreciated. 2. Dysplastic nevus. Outpatient dermatology followup per the [facility] is recommended. 3. Thyroid nodule. Could consider further outpatient followup with fine needle aspiration. 4. Right-sided neck pain. Please note that later on in the afternoon, I was notified that the patient began to develop right-sided neck pain. The etiology is not immediately clear. I will check a stat right upper extremity Duplex to see if there is any deep vein thrombosis (DVT) associated with her percutaneous indwelling central catheter (PICC) line and proceed with further evaluation from there. In the meantime, pain medication will be provided. DISPOSITION: To her home with IV antibiotics. LILLIE
[2018-07-30] MEDS: SODIUM CHLORIDE HYPERTONIC 3% 15ML NEB SOL INH PRN (23:15)
[2018-07-31] MEDS: LINEZOLID 600MG TABLET (ZYVOX) PO SCH ×3 (05:02→22:05)
[2018-07-31] MEDS: TAZOBACTAM SOD IV SCH ×3 (05:03→20:33)
[2018-07-31] MEDS: D5W IV SCH ×3 (05:03→20:33)
[2018-07-31] MEDS: SODIUM CHLORIDE 0.9% INJ 10 ML SYR IV SCH ×2 (05:03→18:38)
[2018-07-31] MEDS: PIPERACILLIN IV SCH ×3 (05:03→20:33)
[2018-07-31] MEDS: MATE ADAPTER IV SCH ×3 (05:03→20:33)
[2018-07-31 06:00] VITALS: BP 98/61
[2018-07-31] MEDS: PERCOCET 5MG/325MG TAB PO PRN (06:04)
[2018-07-31 06:28] LABS: HEMATOCRIT 37.8 % (36.0-47.0); HEMOGLOBIN 12.4 g/dl (12.0-15.5); MEAN CORPUSCULAR HEMOGLOBIN 29.2 pg (27.0-33.0); MEAN CORPUSCULAR HGB CONC 32.8 g/dl (32.0-36.5); MEAN CORPUSCULAR VOLUME 88.9 fl (80.0-96.0); PLATELET COUNT, AUTOMATED 246 10^3/uL (150-450); RED BLOOD COUNT 4.25 10^6/uL (4.00-5.40); WHITE BLOOD COUNT 5.8 10^3/uL (4.0-10.0)
[2018-07-31 06:54] LABS: BLOOD UREA NITROGEN 17 MG/DL (7-18); CALCIUM LEVEL 8.6 MG/DL (8.5-10.1); CARBON DIOXIDE LEVEL 26 MEQ/L (21-32); CHLORIDE LEVEL 104 MEQ/L (98-107); CREATININE FOR GFR 0.68 MG/DL (0.55-1.30); GLOMERULAR FILTRATION RATE > 60.0 (>60); GLUCOSE, FASTING 101 MG/DL (70-100); POTASSIUM SERUM 4.1 MEQ/L (3.5-5.1); SODIUM LEVEL 136 MEQ/L (136-145)
[2018-07-31] MEDS: IPRATROPIUM 0.5MG/ALBUTEROL 2.5MG INH SOL UD 3ML (DUONEB)(J7620) NEB SCH ×3 (08:00→20:00)
[2018-07-31] MEDS: ADVAIR HFA 115/21MCG INHALER INH SCH ×2 (08:10→20:19)
[2018-07-31] MEDS: CREON-24 CAPSULE PO SCH ×3 (09:51→18:39)
[2018-07-31] MEDS: PHYTONADIONE 5 MG TAB PO SCH (09:51)
[2018-07-31] MEDS: HumaLOG INSULIN (NovoLOG) PER UNIT SC SCH ×3 (09:54→17:30)
[2018-07-31] MEDS: traMADol 50 MG TAB PO PRN (09:54)
[2018-07-31 14:00] VITALS: BP 100/62
--- NOTE | 2018-07-31 14:34 | IPNPDOC ---
Date Seen The patient was seen on 07/31/18. Progress Note SUBJECTIVE: Patient did complain of some left-sided neck pain yesterday evening she tells me that this is resolving now at the present time she is complaining of some right-sided chest pain which is new tells me this tender to palpation but otherwise not reproducible she denies associated with deep breaths or coughing OBJECTIVE PHYSICAL EXAMINATION: VITAL SIGNS: Please see below. GENERAL: Slim young female sitting up in bed awake alert oriented no acute distress HEENT: Cranial nerves II through XII grossly intact CARDIOVASCULAR: Is 1 S2 regular. RESPIRATORY: Clear to auscultation bilaterally. ABDOMINAL: Bowel sounds are present abdomen soft and nontender EXTREMITIES: No clubbing cyanosis or edema LABORATORY DATA, IMAGING STUDIES, MICROBIOLOGY: Please see below. ASSESSMENT AND PLAN: This is a 23-year-old female with exacerbation of cystic fibrosis. PROBLEMS: 1. Exacerbation of cystic fibrosis. [facility]'s help has been greatly appreciated. They recommended to complete 10 days of Zyvox and 14 days of Zosyn, today is day 7 of these therapies. We are attempting to arrange for home infusion of continuous Zosyn. She was then transitioned to by mouth Zyvox already. Patient Family Services (PFS) help was greatly appreciated. 2. Dysplastic nevus. Outpatient dermatology followup per the [facility] is recommended. 3. Thyroid nodule. Could consider further outpatient followup with fine needle aspiration. 4. Right-sided chest pain: Given her history of cystic fibrosis I'll check a PA and lateral plain film is on appropriate antibiotics her left-sided pain has spontaneously resolved her ultrasound revealed no evidence of DVT. DISPOSITION: home with IV antibiotics. As soon as possible [facility] Vital Signs Date Time Temp Pulse Resp B/P (MAP) Pulse Ox O2 Delivery O2 Flow Rate FiO2 07/31/18 10:47 16 07/31/18 06:00 97.0 77 98/61 (73) 96 07/25/18 06:49 Room Air I&O- Last 24 Hours up to 6 AM 07/31/18 06:00 Intake Total 2040.6 ml Output Total 0 ml Balance 2040.6 ml Laboratory Data 24H LABS Laboratory Tests 2 07/30/18 16:36: Bedside Glucose (Misc Panel) 150H 07/30/18 20:07: Bedside Glucose (Misc Panel) 80 07/31/18 06:04: Nucleated Red Blood Cells % (auto) 0.0, Anion Gap 6L, Glomerular Filtration Rate > 60.0, Blood Urea Nitrogen 17, Creatinine 0.68, Sodium Level 136, Potassium Level 4.1, Chloride Level 104, Carbon Dioxide Level 26, Calcium Level 8.6 07/31/18 11:52: Bedside Glucose (Misc Panel) 101 CBC/BMP Laboratory Tests 07/31/18 06:04 Red Blood Count 4.25, Mean Corpuscular Volume 88.9, Mean Corpuscular Hemoglobin 29.2, Mean Corpuscular Hemoglobin Concent 32.8, Red Cell Distribution Width 12.4, Calcium Level 8.6 Microbiology Microbiology 07/24/18 Blood Culture - Final, Complete NO GROWTH AFTER 5 DAYS 07/24/18 Blood Culture - Final, Complete NO GROWTH AFTER 5 DAYS 07/27/18 Gram Stain - Final, Complete 07/27/18 Sputum Culture - Final, Complete Aeromonas Sobria Burkholderia Cepacia Yeast Like Organism 07/24/18 Respiratory Virus Panel (PCR) (BELLE) - Final, Complete 07/24/18 Gram Stain - Final, Complete 07/24/18 Sputum Culture - Final, Complete Haemophilus Parainfluenzae Burkholderia Cepacia PENNIE CORBIN MD Jul 31, 2018 14:34
--- NOTE | 2018-07-31 16:03 | REP ---
Chest x-ray: Two views. History: Right-sided chest pain. Patient with cystic fibrosis. Comparison chest x-ray: July 27, 2018. Findings: A left-sided PICC line is seen with its tip in the expected location of the superior vena cava. There is an infiltrate overlying the heart on the lateral film involving the lingula. This was seen on chest CT study from July 24, 2018. There is some peribronchial cuffing visible on the lateral film. No new infiltrate is noted. Pleural angles are sharp. Heart is not enlarged. Impression: Lingular infiltrate persists. The left-sided PICC line in place. No new infiltrate seen. Otherwise no acute disease. Electronically Signed by Alli Landry MD 07/31/2018 10:28 P
[2018-07-31] MEDS: SODIUM CHLORIDE HYPERTONIC 3% 15ML NEB SOL INH PRN (16:25)
[2018-07-31] MEDS: ACETAMINOPHEN TAB 650MG DOSE (2X325MG) PO PRN (16:30)
[2018-07-31 22:00] VITALS: BP 100/58
[2018-08-01] MEDS: IPRATROPIUM 0.5MG/ALBUTEROL 2.5MG INH SOL UD 3ML (DUONEB)(J7620) NEB SCH ×3 (02:00→11:35)
[2018-08-01] MEDS: SODIUM CHLORIDE 0.9% INJ 10 ML SYR IV SCH (05:14)
[2018-08-01] MEDS: LINEZOLID 600MG TABLET (ZYVOX) PO SCH ×2 (05:15→13:20)
[2018-08-01] MEDS: PIPERACILLIN IV SCH ×2 (05:15→09:22)
[2018-08-01] MEDS: TAZOBACTAM SOD IV SCH ×2 (05:15→09:22)
[2018-08-01] MEDS: MATE ADAPTER IV SCH ×2 (05:15→09:22)
[2018-08-01] MEDS: D5W IV SCH ×2 (05:15→09:22)
[2018-08-01 05:38] LABS: HEMATOCRIT 37.4 % (36.0-47.0); HEMOGLOBIN 12.3 g/dl (12.0-15.5); MEAN CORPUSCULAR HEMOGLOBIN 29.4 pg (27.0-33.0); MEAN CORPUSCULAR HGB CONC 32.9 g/dl (32.0-36.5); MEAN CORPUSCULAR VOLUME 89.3 fl (80.0-96.0); PLATELET COUNT, AUTOMATED 235 10^3/uL (150-450); RED BLOOD COUNT 4.19 10^6/uL (4.00-5.40); WHITE BLOOD COUNT 5.8 10^3/uL (4.0-10.0)
[2018-08-01 06:00] VITALS: BP 101/67
[2018-08-01 06:36] LABS: BLOOD UREA NITROGEN 18 MG/DL (7-18); CALCIUM LEVEL 8.1 MG/DL (8.5-10.1); CARBON DIOXIDE LEVEL 25 MEQ/L (21-32); CHLORIDE LEVEL 105 MEQ/L (98-107); GLOMERULAR FILTRATION RATE > 60.0 (>60); GLUCOSE, FASTING 100 MG/DL (70-100); POTASSIUM SERUM 4.2 MEQ/L (3.5-5.1); SODIUM LEVEL 138 MEQ/L (136-145)
[2018-08-01] MEDS: HumaLOG INSULIN (NovoLOG) PER UNIT SC SCH ×2 (07:30→12:35)
[2018-08-01] MEDS: ADVAIR HFA 115/21MCG INHALER INH SCH (08:30)
[2018-08-01] MEDS ORDERED: LINE60TAB PO (09:16)
[2018-08-01] MEDS: PHYTONADIONE 5 MG TAB PO SCH (09:21)
[2018-08-01] MEDS: CREON-24 CAPSULE PO SCH ×2 (09:22→12:34)
[2018-08-01] MEDS: PERCOCET 5MG/325MG TAB PO PRN (09:31)
[2018-08-01] MEDS ORDERED: PHYT5TA PO ×2 (11:10→12:07)
[2018-08-01] MEDS: SODIUM CHLORIDE HYPERTONIC 3% 15ML NEB SOL INH PRN (11:34)
[2018-08-01] MEDS: SODIUM CHLORIDE 0.9% INJ 10 ML SYR IV PRN (13:20)
--- NOTE | 2018-08-03 21:58 | DSES ---
DATE OF ADMISSION: 07/25/2018 DATE OF DISCHARGE: 08/01/2018 DISCHARGE DIAGNOSIS: Cystic fibrosis exacerbation. SECONDARY DIAGNOSES: 1. Pneumonia. 2. Dysplastic 3. Haemophilus parainfluenza and Burkholderia cepacia, as well as Aeromonas sobria. The cystic fibrosis center did make recommendations regarding antibiotics based on culture and sensitivity, they recommended that she complete the 10 days of Zyvox and 14 days of continuous Zosyn infusion. She remained in the hospital, and while she improved there was talk of transferring her to [facility]; however, they did not have any beds, and with ongoing suggestions, it was then decided that the patient had improved to the point where she could be discharged home with home intravenous (IV) antibiotics. She did receive a peripherally inserted central catheter (PICC) line, and these were arranged. At this time she is medically stable for discharge and has felt very well for several days. OBJECTIVE: VITAL SIGNS: Temperature 97.6, pulse 87, respiratory rate 18, blood pressure (BP) 101/67, oxygen saturation 95% on room air. GENERAL: She is a very pleasant female who sits up to greet me as I enter room. She is does not appear to be in any acute distress. HEENT: Cranial nerves II-XII are grossly intact. She has moist mucous membranes. CARDIOVASCULAR: S1, S2, regular. RESPIRATORY: Actually fairly clear. ABDOMEN: Benign. EXTREMITIES: No clubbing, cyanosis, or edema. LABORATORY STUDIES: WBC 5.8, hemoglobin 12.3, platelet count 235. Chemistry panel: Sodium 138, potassium 4.2, chloride 105, bicarbonate 25, BUN 18, creatinine 0.7. Microbiology: As outlined above. Blood cultures were negative. Respiratory PCR panel was negative. IMAGING: The patient did have a vascular ultrasound that revealed heterogeneous nodules of the thyroid gland. No followup indicated. No evidence of deep vein thrombosis (DVT). She did have a CT of the head done that revealed no intracranial abnormality. She did have a CT angiography of her chest at the time of her admission, which revealed no evidence of a pulmonary embolism (PE). Small densities ranging in size from 5 mm to 1 cm throughout the right left lung, 10 on the right, 6 on the left, associated with increased lymphoid tissue in the right perihilar region. Associated bronchiectasis about both lungs. Patchy infiltrates and bronchiectasis, right and left cardiophrenic angle. ASSESSMENT AND PLAN: This is a 23-year-old female with exacerbation of bronchiectasis related to cystic fibrosis. 1. Exacerbation of bronchiectasis related to cystic fibrosis. [facility]'s help has been greatly appreciated. She is being discharged on vitamin K weekly after having received it here daily, 5 mg. Today is day #8 of antibiotics, she is to complete 10 days of Zyvox and 14 days of continuous Zosyn, ensuring she is able to receiving these medications, and a PICC line is put in place. She is being discharged home at this time. 2. Dysplastic nevus. We have recommended that he have outpatient dermatology followup at the [facility]. 3. Thyroid nodule. Could consider further followup with a fine-needle aspiration versus repeat imaging. DISPOSITION: She is being discharged home to the care of her family. She is at her functional baseline. Her clinical syndrome is resolving. She is to followup with her primary care physician (PCP) in 7 days and followup with [facility] as scheduled. Her activity is as tolerated with a PICC line and continuous infusion in place. Her diet is as prior to admission. She is to return to the emergency room (ER) if symptoms worsen. DISCHARGE MEDICATIONS: - linezolid 600 mg every 8 hours - vitamin K 500 mg by mouth once a week - Tylenol 650 every 4 hours as needed for pain - ProAir HFA two puffs inhaled every 4 hours as needed for shortness of breath - DuoNeb 2.5 mg at bedtime - dornase lorena (Pulmozyme) 2.5 mg inhaled at bedtime - Zofran 4 mg as needed for nausea three times a day - Creon 24,000 units, 3 of them with meals and 2 as directed with snacks. - Advair 25/50 one puff inhaled twice a day - sodium chloride 7% inhaled at bedtime Greater than 30 minutes spent organizing disposition.
== END 2018-08-01 13:26 | disposition home health service (06) | DRG 178 ==
LOC: EDBD 20:20 → M ED 20:20 → M ED INP 07-25 00:01 → M MSPAV 07-25 08:28
PROVIDERS: ADMIT Internal Medicine; ATTEND Internal Medicine
PROC: 02HV33Z Insertion of Infusion Device into Superior Vena Cava, Percutaneous Approach (ICD-10-PCS; principal; 2018-07-28)
DX: E84.0 Cystic fibrosis with pulmonary manifestations (principal); J47.1 Bronchiectasis with (acute) exacerbation; R04.2 Hemoptysis; E04.1 Nontoxic single thyroid nodule; D23.5 Other benign neoplasm of skin of trunk; K86.81 Exocrine pancreatic insufficiency; M54.2 Cervicalgia; B96.3 Hemophilus influenzae [H. influenzae] as the cause of diseases classified elsewhere; Z88.1 Allergy status to other antibiotic agents; Z79.899 Other long term (current) drug therapy

== ENCOUNTER → 2018-08-04 | Outpatient (REF) | payer OTHER ==
[~2018-08-04] MED LIST: ADV250INH INH; ALBU83IN INH; CREO24CA PO; LINE60TAB PO; ONDA4TAB5 PO; PHYT5TA PO; PROAAER10 INH; PULM1SOL INH; SODI7NEB3 INH; TYLE325T5 PO
[2018-08-04 15:12] LABS: BASO # 0.1 10^3/uL (0.0-0.2); EOS # 0.5 10^3/uL (0.0-0.50); EOS % 8.1 % (0.0-3.0); HEMATOCRIT 37.4 % (36.0-47.0); HEMOGLOBIN 12.5 g/dl (12.0-15.5); LYMPH # 1.3 10^3/uL (1.5-6.5); LYMPH % 22.3 % (24.0-44.0); MEAN CORPUSCULAR HEMOGLOBIN 28.9 pg (27.0-33.0); MEAN CORPUSCULAR HGB CONC 33.4 g/dl (32.0-36.5); MEAN CORPUSCULAR VOLUME 86.4 fl (80.0-96.0); MONO # 0.4 10^3/uL (0.0-0.8); MONO % 7.4 % (0.0-5.0); NEUTROPHILS # 3.5 10^3/uL (1.8-7.7); PLATELET COUNT, AUTOMATED 217 10^3/uL (150-450); RED BLOOD COUNT 4.33 10^6/uL (4.00-5.40); WHITE BLOOD COUNT 5.8 10^3/uL (4.0-10.0)
[2018-08-04 15:18] LABS: ALBUMIN 3.7 GM/DL (3.2-5.2); ALT/SGPT 25 U/L (12-78); BILIRUBIN,TOTAL 0.5 MG/DL (0.2-1.0); BLOOD UREA NITROGEN 17 MG/DL (7-18); CALCIUM LEVEL 8.8 MG/DL (8.5-10.1); CARBON DIOXIDE LEVEL 26 MEQ/L (21-32); CHLORIDE LEVEL 105 MEQ/L (98-107); GLOMERULAR FILTRATION RATE > 60.0 (>60); GLUCOSE, FASTING 129 MG/DL (70-100); POTASSIUM SERUM 4.4 MEQ/L (3.5-5.1); SODIUM LEVEL 137 MEQ/L (136-145); TOTAL PROTEIN 7.2 GM/DL (6.4-8.2)
== END ==
LOC: M LAB REF 15:01
PROVIDERS: ATTEND Internal Medicine
DX: E84.0 Cystic fibrosis with pulmonary manifestations (principal)

== ENCOUNTER → 2018-08-11 | Outpatient (REF) | payer OTHER ==
[2018-08-11 14:06] LABS: BASO # 0.1 10^3/uL (0.0-0.2); BASO % 0.6 % (0.0-1.0); EOS # 0.6 10^3/uL (0.0-0.50); EOS % 7.3 % (0.0-3.0); HEMATOCRIT 36.7 % (36.0-47.0); HEMOGLOBIN 12.4 g/dl (12.0-15.5); LYMPH # 1.4 10^3/uL (1.5-6.5); LYMPH % 16.2 % (24.0-44.0); MEAN CORPUSCULAR HEMOGLOBIN 29.1 pg (27.0-33.0); MEAN CORPUSCULAR HGB CONC 33.8 g/dl (32.0-36.5); MEAN CORPUSCULAR VOLUME 86.2 fl (80.0-96.0); MONO # 0.9 10^3/uL (0.0-0.8); MONO % 10.5 % (0.0-5.0); NEUTROPHILS # 5.4 10^3/uL (1.8-7.7); PLATELET COUNT, AUTOMATED 236 10^3/uL (150-450); RED BLOOD COUNT 4.26 10^6/uL (4.00-5.40); WHITE BLOOD COUNT 8.4 10^3/uL (4.0-10.0)
[2018-08-11 14:35] LABS: ALBUMIN 3.9 GM/DL (3.2-5.2); ALT/SGPT 21 U/L (12-78); BILIRUBIN,TOTAL 0.3 MG/DL (0.2-1.0); BLOOD UREA NITROGEN 12 MG/DL (7-18); CALCIUM LEVEL 8.7 MG/DL (8.5-10.1); CARBON DIOXIDE LEVEL 27 MEQ/L (21-32); CHLORIDE LEVEL 105 MEQ/L (98-107); CREATININE FOR GFR 0.61 MG/DL (0.55-1.30); GLOMERULAR FILTRATION RATE > 60.0 (>60); GLUCOSE, FASTING 112 MG/DL (70-100); POTASSIUM SERUM 4.5 MEQ/L (3.5-5.1); SODIUM LEVEL 138 MEQ/L (136-145); TOTAL PROTEIN 7.3 GM/DL (6.4-8.2)
== END ==
LOC: M LAB REF 13:47
PROVIDERS: ATTEND Family Medicine
DX: E84.9 Cystic fibrosis, unspecified (principal)

== ENCOUNTER → 2018-10-23 | Outpatient (CLI) | payer OTHER ==
[~2018-10-23] MED LIST changes: +ISOVUE-300 61% 100ML VIAL (Q9967) As Ordered ONE; +LIDOCAINE 1% MDV 20ML VIAL As Ordered ONE; +LINE1TAB PO; -LINE60TAB PO; +ZOSY3INJ2 IV
--- NOTE | 2018-10-24 11:15 | REP ---
Procedure: PICC line insertion with Site-Ritnika The procedure was performed under the direct supervision of Dr. Parekh. The risks and benefits of the procedure were explained to the patient and informed consent was obtained. The left basilic vein was localized using ultrasound guidance. The skin was prepped and draped in a sterile fashion. 1% lidocaine was used as a local anesthetic. Using ultrasound guidance an attempt is made to cannulate the basilic vein however this was unsuccessful. The left brachial vein was localized using ultrasound guidance. 1% lidocaine was used as a local anesthetic. Using ultrasound guidance the brachial vein was cannulated and a 0.0 a guide wire was inserted and advanced to the SVC using fluoroscopic guidance. The needle was removed and a 4.5 Malay dilator and peel-away sheath was inserted over the guide wire. A 4.5 Malay single-lumen catheter was cut to length of 45 cm. The dilator was removed and the catheter was inserted however it could not be advanced beyond the axillary region. The catheter was removed and the dilator and sheath were reinserted. A venogram was performed and images demonstrate either venous spasm or very small veins which would not allow for passage of the catheter. The right basilic vein was localized using ultrasound guidance. The skin was prepped and draped in a sterile fashion. 1% lidocaine was used as a local anesthetic. Using ultrasound guidance multiple attempts were made to cannulate the basilic vein however they were unsuccessful. A total of 8 ml of Isovue 300 was utilized for this procedure. The patient tolerated the procedure well and there were no immediate complications. 2.5 minutes of fluoro time was utilized for this procedure. Reviewed by BERE Adhikari 10/23/2018 04:43 P Electronically Signed by Tadeo Parekh MD 10/24/2018 11:07 A
== END ==
LOC: M RADPRO 14:04
PROVIDERS: ATTEND Internal Medicine
DX: E84.9 Cystic fibrosis, unspecified (principal); Z88.1 Allergy status to other antibiotic agents; Z79.899 Other long term (current) drug therapy
CPT/HCPCS: 36569; Q9967

== ENCOUNTER → 2018-10-29 | Outpatient (REF) | payer OTHER ==
[~2018-10-29] MED LIST changes: -ISOVUE-300 61% 100ML VIAL (Q9967) As Ordered ONE; -LIDOCAINE 1% MDV 20ML VIAL As Ordered ONE
[2018-10-29 11:55] LABS: BASO # 0.1 10^3/uL (0.0-0.2); BASO % 0.8 % (0.0-1.0); EOS # 0.4 10^3/uL (0.0-0.50); EOS % 6.2 % (0.0-3.0); HEMATOCRIT 37.6 % (36.0-47.0); HEMOGLOBIN 12.4 g/dl (12.0-15.5); LYMPH # 1.1 10^3/uL (1.5-6.5); LYMPH % 18.3 % (24.0-44.0); MEAN CORPUSCULAR HEMOGLOBIN 29.7 pg (27.0-33.0); MEAN CORPUSCULAR VOLUME 90.2 fl (80.0-96.0); MONO # 0.4 10^3/uL (0.0-0.8); MONO % 6.7 % (0.0-5.0); NEUTROPHILS # 4.2 10^3/uL (1.8-7.7); NEUTROPHILS % 67.8 % (36.0-66.0); PLATELET COUNT, AUTOMATED 249 10^3/uL (150-450); RED BLOOD COUNT 4.17 10^6/uL (4.00-5.40); WHITE BLOOD COUNT 6.2 10^3/uL (4.0-10.0)
[2018-10-29 12:47] LABS: ALBUMIN 3.5 GM/DL (3.2-5.2); ALT/SGPT 27 U/L (12-78); BILIRUBIN,TOTAL 0.5 MG/DL (0.2-1.0); BLOOD UREA NITROGEN 16 MG/DL (7-18); CALCIUM LEVEL 8.5 MG/DL (8.5-10.1); CARBON DIOXIDE LEVEL 26 MEQ/L (21-32); CHLORIDE LEVEL 106 MEQ/L (98-107); CREATININE FOR GFR 0.92 MG/DL (0.55-1.30); GLOMERULAR FILTRATION RATE > 60.0 (>60); GLUCOSE, FASTING 147 MG/DL (70-100); POTASSIUM SERUM 4.2 MEQ/L (3.5-5.1); SODIUM LEVEL 138 MEQ/L (136-145); TOTAL PROTEIN 6.3 GM/DL (6.4-8.2)
== END ==
LOC: M LAB REF 11:20
PROVIDERS: ATTEND Internal Medicine Critical Care Medicine
DX: E84.0 Cystic fibrosis with pulmonary manifestations (principal)

== ENCOUNTER 2018-10-30 20:54 | Emergency (ER) | payer OTHER ==
[~2018-10-30] VITALS: Ht 157.5 cm; Wt 50.0 kg
[~2018-10-30 20:54] MED LIST changes: -ZOSY3INJ2 IV
[2018-10-30] MEDS ORDERED: ZOSY3INJ2 IV (21:01)
[2018-10-30] MEDS ORDERED: MORPHINE 4 MG/ML 1ML VIAL/SYRINGE (J2270) IV PRN (21:30)
[2018-10-30] MEDS ORDERED: ONDANSETRON 4MG/2ML VIAL (J2405) IV ONE (21:30)
[2018-10-30 21:58] LABS: BASO # 0.1 10^3/uL (0.0-0.2); BASO % 0.8 % (0.0-1.0); EOS # 0.4 10^3/uL (0.0-0.50); EOS % 4.7 % (0.0-3.0); HEMATOCRIT 42.8 % (36.0-47.0); HEMOGLOBIN 14.3 g/dl (12.0-15.5); LYMPH # 1.9 10^3/uL (1.5-6.5); LYMPH % 21.7 % (24.0-44.0); MEAN CORPUSCULAR HGB CONC 33.4 g/dl (32.0-36.5); MEAN CORPUSCULAR VOLUME 89.9 fl (80.0-96.0); MONO # 0.6 10^3/uL (0.0-0.8); MONO % 6.5 % (0.0-5.0); NEUTROPHILS # 5.6 10^3/uL (1.8-7.7); NEUTROPHILS % 66.1 % (36.0-66.0); PLATELET COUNT, AUTOMATED 264 10^3/uL (150-450); RED BLOOD COUNT 4.76 10^6/uL (4.00-5.40); WHITE BLOOD COUNT 8.5 10^3/uL (4.0-10.0)
[2018-10-30 22:15] LABS: HCG, SERUM QUALITATIVE NEGATIVE (NEGATIVE)
[2018-10-30] MEDS: GASTROGRAFIN SOLUTION 30ML PO SCH ×2 (22:55→23:37)
[2018-10-30 23:25] LABS: ALBUMIN 3.8 GM/DL (3.2-5.2); ALT/SGPT 29 U/L (12-78); BILIRUBIN,DIRECT < 0.1 MG/DL (0.0-0.2); BILIRUBIN,TOTAL 0.4 MG/DL (0.2-1.0); BLOOD UREA NITROGEN 21 MG/DL (7-18); CALCIUM LEVEL 9.2 MG/DL (8.5-10.1); CARBON DIOXIDE LEVEL 27 MEQ/L (21-32); CHLORIDE LEVEL 105 MEQ/L (98-107); CREATININE FOR GFR 0.89 MG/DL (0.55-1.30); GLOMERULAR FILTRATION RATE > 60.0 (>60); GLUCOSE, FASTING 95 MG/DL (70-100); LIPASE 30 U/L (73-393); POTASSIUM SERUM 4.1 MEQ/L (3.5-5.1); SODIUM LEVEL 139 MEQ/L (136-145)
[2018-10-30] MEDS ORDERED: ISOVUE-370 76% 100ML VIAL (Q9967) As Ordered ONE (23:35)
--- NOTE | 2018-10-31 01:01 | REPVR ---
EXAM: CT Abdomen and Pelvis With Contrast EXAM DATE/TIME: 10/30/2018 9:27 PM CLINICAL HISTORY: 23 years old, female; Abdominal pain; Localized; Left lower quadrant (llq); Additional info: Llq abd pain TECHNIQUE: Imaging protocol: Axial computed tomography images of the abdomen and pelvis with intravenous contrast. Coronal and sagittal reformatted images were created and reviewed. Radiation optimization: All CT scans at this facility use at least one of these dose optimization techniques: automated exposure control; mA and/or kV adjustment per patient size (includes targeted exams where dose is matched to clinical indication); or iterative reconstruction. Contrast material: ISO; Contrast volume: 100 ml; Contrast route: AC; COMPARISON: No relevant prior studies available. FINDINGS: Lungs: Bronchiectasis in the right middle lobe and lingula. ABDOMEN: Liver: Normal. No mass. Gallbladder and bile ducts: Normal. No calcified stones. No ductal dilation. Pancreas: Pancreatic duct appears dilated. Multiple calcifications in the pancreas. Cystic lesion in the body of the pancreas measuring 1.6 x 1.5 cm. Spleen: Normal. No splenomegaly. Adrenals: Normal. No mass. Kidneys and ureters: No hydronephrosis bilaterally. 5 mm nonobstructing stone in lower pole of the right kidney. Stomach and bowel: Negative for colonic diverticulitis. No abnormal bowel dilatation. No abnormal bowel wall thickening. Copious stool throughout the colon. Appendix: Status post appendectomy. PELVIS: Bladder: Unremarkable as visualized. Reproductive: Uterus is normal. ABDOMEN and PELVIS: Intraperitoneal space: Normal. No free air. No significant fluid collection. Bones/joints: No acute fracture. No dislocation. Soft tissues: Unremarkable. Vasculature: Normal. No abdominal aortic aneurysm. Lymph nodes: Normal. No enlarged lymph nodes. IMPRESSION: 1. Pancreatic duct appears dilated. Multiple calcifications in the pancreas. Consistent with chronic pancreatitis. Correlate clinically. Recommend followup as likely warranted. 2. Cystic lesion in the way the pancreas. Recommend followup in 1 year. 3. Copious stool throughout the colon. 4. Nonobstructive stone in the right kidney. 5. Additional findings as described. Electronically signed by: Paulina Cardoza On 10/31/2018 01:00:53 AM
[2018-10-31 04:13] VITALS: BP 96/60
== END 2018-10-31 04:15 | disposition home or self-care (01) ==
LOC: M ED 20:54
DX: R10.32 Left lower quadrant pain (principal); R19.7 Diarrhea, unspecified; Z79.899 Other long term (current) drug therapy; Z88.1 Allergy status to other antibiotic agents
CPT/HCPCS: 74177; 80048; 80076; 81001; 83605; 83690; 84703; 85025; 86850; 86900; 86901; 87040; 93041; 96374; 96375; 99284; J2270; J2405; Q9963; Q9967

== ENCOUNTER → 2018-11-10 | Outpatient (REF) | payer OTHER ==
[~2018-11-10] MED LIST changes: +ZOSY3INJ2 IV
[2018-11-10 13:36] LABS: BASO # 0.1 10^3/uL (0.0-0.2); BASO % 0.9 % (0.0-1.0); EOS # 0.6 10^3/uL (0.0-0.50); EOS % 9.3 % (0.0-3.0); HEMATOCRIT 36.8 % (36.0-47.0); HEMOGLOBIN 12.3 g/dl (12.0-15.5); LYMPH % 15.7 % (24.0-44.0); MEAN CORPUSCULAR HEMOGLOBIN 29.7 pg (27.0-33.0); MEAN CORPUSCULAR HGB CONC 33.4 g/dl (32.0-36.5); MEAN CORPUSCULAR VOLUME 88.9 fl (80.0-96.0); MONO # 0.6 10^3/uL (0.0-0.8); MONO % 9.5 % (0.0-5.0); NEUTROPHILS # 4.3 10^3/uL (1.8-7.7); NEUTROPHILS % 64.4 % (36.0-66.0); PLATELET COUNT, AUTOMATED 251 10^3/uL (150-450); RED BLOOD COUNT 4.14 10^6/uL (4.00-5.40); WHITE BLOOD COUNT 6.6 10^3/uL (4.0-10.0)
[2018-11-10 19:07] LABS: ALBUMIN 3.2 GM/DL (3.2-5.2); ALT/SGPT 24 U/L (12-78); BILIRUBIN,TOTAL 0.5 MG/DL (0.2-1.0); BLOOD UREA NITROGEN 14 MG/DL (7-18); CALCIUM LEVEL 8.6 MG/DL (8.5-10.1); CARBON DIOXIDE LEVEL 27 MEQ/L (21-32); CHLORIDE LEVEL 106 MEQ/L (98-107); CREATININE FOR GFR 0.75 MG/DL (0.55-1.30); GLOMERULAR FILTRATION RATE > 60.0 (>60); GLUCOSE, FASTING 141 MG/DL (70-100); POTASSIUM SERUM 4.2 MEQ/L (3.5-5.1); SODIUM LEVEL 140 MEQ/L (136-145); TOTAL PROTEIN 6.6 GM/DL (6.4-8.2)
== END ==
LOC: M LAB REF 13:07
PROVIDERS: ATTEND Internal Medicine Critical Care Medicine
DX: E84.0 Cystic fibrosis with pulmonary manifestations (principal)

== ENCOUNTER → 2018-11-18 | Outpatient (REF) | payer OTHER ==
[2018-11-18 12:33] LABS: BASO # 0.1 10^3/uL (0.0-0.2); EOS # 0.5 10^3/uL (0.0-0.50); EOS % 10.3 % (0.0-3.0); HEMATOCRIT 38.7 % (36.0-47.0); HEMOGLOBIN 12.8 g/dl (12.0-15.5); LYMPH % 18.8 % (24.0-44.0); MEAN CORPUSCULAR HEMOGLOBIN 29.9 pg (27.0-33.0); MEAN CORPUSCULAR HGB CONC 33.1 g/dl (32.0-36.5); MEAN CORPUSCULAR VOLUME 90.4 fl (80.0-96.0); MONO # 0.4 10^3/uL (0.0-0.8); MONO % 7.3 % (0.0-5.0); NEUTROPHILS # 3.3 10^3/uL (1.8-7.7); NEUTROPHILS % 62.2 % (36.0-66.0); PLATELET COUNT, AUTOMATED 245 10^3/uL (150-450); RED BLOOD COUNT 4.28 10^6/uL (4.00-5.40); WHITE BLOOD COUNT 5.2 10^3/uL (4.0-10.0)
[2018-11-18 13:21] LABS: ALBUMIN 3.2 GM/DL (3.2-5.2); ALT/SGPT 74 U/L (12-78); BILIRUBIN,TOTAL 0.4 MG/DL (0.2-1.0); BLOOD UREA NITROGEN 13 MG/DL (7-18); CALCIUM LEVEL 8.9 MG/DL (8.5-10.1); CARBON DIOXIDE LEVEL 27 MEQ/L (21-32); CHLORIDE LEVEL 106 MEQ/L (98-107); CREATININE FOR GFR 0.67 MG/DL (0.55-1.30); GLOMERULAR FILTRATION RATE > 60.0 (>60); GLUCOSE, FASTING 89 MG/DL (70-100); POTASSIUM SERUM 4.4 MEQ/L (3.5-5.1); SODIUM LEVEL 141 MEQ/L (136-145); TOTAL PROTEIN 6.5 GM/DL (6.4-8.2)
== END ==
LOC: M SHH 12:13 → M LAB REF 12:13
PROVIDERS: ATTEND Internal Medicine Critical Care Medicine
DX: E84.0 Cystic fibrosis with pulmonary manifestations (principal)

== ENCOUNTER → 2018-11-24 | Outpatient (REF) | payer OTHER ==
[2018-11-24 13:40] LABS: BASO # 0.1 10^3/uL (0.0-0.2); BASO % 1.6 % (0.0-1.0); EOS # 0.5 10^3/uL (0.0-0.50); EOS % 10.8 % (0.0-3.0); HEMATOCRIT 38.1 % (36.0-47.0); HEMOGLOBIN 12.5 g/dl (12.0-15.5); LYMPH # 1.1 10^3/uL (1.5-6.5); LYMPH % 22.4 % (24.0-44.0); MEAN CORPUSCULAR HEMOGLOBIN 29.3 pg (27.0-33.0); MEAN CORPUSCULAR HGB CONC 32.8 g/dl (32.0-36.5); MEAN CORPUSCULAR VOLUME 89.4 fl (80.0-96.0); MONO # 0.6 10^3/uL (0.0-0.8); MONO % 11.2 % (0.0-5.0); NEUTROPHILS # 2.7 10^3/uL (1.8-7.7); NEUTROPHILS % 53.8 % (36.0-66.0); PLATELET COUNT, AUTOMATED 231 10^3/uL (150-450); RED BLOOD COUNT 4.26 10^6/uL (4.00-5.40)
[2018-11-24 13:55] LABS: ALBUMIN 2.9 GM/DL (3.2-5.2); ALT/SGPT 63 U/L (12-78); BILIRUBIN,TOTAL 0.4 MG/DL (0.2-1.0); BLOOD UREA NITROGEN 14 MG/DL (7-18); CALCIUM LEVEL 8.8 MG/DL (8.5-10.1); CARBON DIOXIDE LEVEL 29 MEQ/L (21-32); CHLORIDE LEVEL 105 MEQ/L (98-107); CREATININE FOR GFR 0.74 MG/DL (0.55-1.30); GLOMERULAR FILTRATION RATE > 60.0 (>60); GLUCOSE, FASTING 165 MG/DL (70-100); POTASSIUM SERUM 4.2 MEQ/L (3.5-5.1); SODIUM LEVEL 140 MEQ/L (136-145); TOTAL PROTEIN 6.4 GM/DL (6.4-8.2)
== END ==
LOC: M SHH 12:13
PROVIDERS: ATTEND Internal Medicine Critical Care Medicine
DX: E84.0 Cystic fibrosis with pulmonary manifestations (principal)

== ENCOUNTER → 2018-12-15 | Outpatient (REF) | payer OTHER ==
[2018-12-15 14:43] LABS: BASO # 0.1 10^3/uL (0.0-0.2); EOS # 0.8 10^3/uL (0.0-0.50); EOS % 13.8 % (0.0-3.0); HEMATOCRIT 40.8 % (36.0-47.0); LYMPH # 1.5 10^3/uL (1.5-6.5); LYMPH % 25.3 % (24.0-44.0); MEAN CORPUSCULAR HEMOGLOBIN 30.3 pg (27.0-33.0); MEAN CORPUSCULAR HGB CONC 34.3 g/dl (32.0-36.5); MEAN CORPUSCULAR VOLUME 88.3 fl (80.0-96.0); MONO # 0.5 10^3/uL (0.0-0.8); MONO % 7.7 % (0.0-5.0); PLATELET COUNT, AUTOMATED 335 10^3/uL (150-450); RED BLOOD COUNT 4.62 10^6/uL (4.00-5.40); WHITE BLOOD COUNT 5.9 10^3/uL (4.0-10.0)
[2018-12-15 15:10] LABS: ALBUMIN 3.2 GM/DL (3.2-5.2); ALT/SGPT 64 U/L (12-78); BILIRUBIN,TOTAL 0.3 MG/DL (0.2-1.0); BLOOD UREA NITROGEN 18 MG/DL (7-18); CARBON DIOXIDE LEVEL 26 MEQ/L (21-32); CHLORIDE LEVEL 104 MEQ/L (98-107); CREATININE FOR GFR 0.57 MG/DL (0.55-1.30); GLOMERULAR FILTRATION RATE > 60.0 (>60); GLUCOSE, FASTING 113 MG/DL (70-100); POTASSIUM SERUM 4.4 MEQ/L (3.5-5.1); SODIUM LEVEL 139 MEQ/L (136-145); TOTAL PROTEIN 7.3 GM/DL (6.4-8.2)
== END ==
LOC: M LAB REF 14:18
DX: E84.0 Cystic fibrosis with pulmonary manifestations (principal)

== ENCOUNTER → 2018-12-22 | Outpatient (REF) | payer OTHER ==
[2018-12-22 13:27] LABS: BASO # 0.1 10^3/uL (0.0-0.2); BASO % 1.2 % (0.0-1.0); EOS # 0.8 10^3/uL (0.0-0.50); EOS % 12.1 % (0.0-3.0); HEMATOCRIT 41.8 % (36.0-47.0); HEMOGLOBIN 13.9 g/dl (12.0-15.5); LYMPH # 1.1 10^3/uL (1.5-6.5); LYMPH % 16.2 % (24.0-44.0); MEAN CORPUSCULAR HGB CONC 33.3 g/dl (32.0-36.5); MEAN CORPUSCULAR VOLUME 90.3 fl (80.0-96.0); MONO # 0.8 10^3/uL (0.0-0.8); MONO % 11.1 % (0.0-5.0); NEUTROPHILS # 4.1 10^3/uL (1.8-7.7); NEUTROPHILS % 59.1 % (36.0-66.0); PLATELET COUNT, AUTOMATED 267 10^3/uL (150-450); RED BLOOD COUNT 4.63 10^6/uL (4.00-5.40); WHITE BLOOD COUNT 6.9 10^3/uL (4.0-10.0)
[2018-12-22 13:46] LABS: ALBUMIN 3.1 GM/DL (3.2-5.2); ALT/SGPT 74 U/L (12-78); BILIRUBIN,TOTAL 0.6 MG/DL (0.2-1.0); BLOOD UREA NITROGEN 16 MG/DL (7-18); CALCIUM LEVEL 8.9 MG/DL (8.5-10.1); CARBON DIOXIDE LEVEL 26 MEQ/L (21-32); CHLORIDE LEVEL 103 MEQ/L (98-107); CREATININE FOR GFR 0.77 MG/DL (0.55-1.30); GLOMERULAR FILTRATION RATE > 60.0 (>60); GLUCOSE, FASTING 122 MG/DL (70-100); POTASSIUM SERUM 4.4 MEQ/L (3.5-5.1); SODIUM LEVEL 137 MEQ/L (136-145)
== END ==
LOC: M SHH 12:24
DX: E84.0 Cystic fibrosis with pulmonary manifestations (principal)

== ENCOUNTER → 2018-12-24 | Outpatient (CLI) | payer OTHER ==
--- NOTE | 2018-12-24 14:09 | PFTRPT ---
Height: 62.00 Inches Weight: 107.00 Lbs BSA: 1.47 Diagnosis: CF DATE OF PROCEDURE: 12/24/2018 ORDERED BY: Dr. Torin Agrawal Spirometry: Pre and post bronchodilator study of excellent technical quality. Forced vital capacity reduced. FEV1 out of proportion. Obstructive index is, therefore, reduced. Flow Volume Loop: Expiratory limb of the flow volume loop does suggest at least a mild degree of flow rate limitation. No significant bronchodilator response identified. IMPRESSION: Mild obstructive ventilatory impairment without bronchodilator response. Please correlate clinically. MTDD
== END ==
LOC: M CARPUL 13:47
PROVIDERS: ATTEND Internal Medicine Critical Care Medicine
DX: E84.9 Cystic fibrosis, unspecified (principal)

== ENCOUNTER → 2019-04-17 | Outpatient (CLI) | payer OTHER ==
[~2019-04-17] MED LIST changes: +AMPH1CAP16; +FLUO10CA8; +IBUP-1114 PO; +REGL10TA6 PO; +[UNRECOGNIZED DRUG - CODE]
== END ==
LOC: M LAB 13:44
PROVIDERS: ATTEND Internal Medicine Critical Care Medicine
DX: E84.0 Cystic fibrosis with pulmonary manifestations (principal)

== ENCOUNTER → 2019-04-17 | Outpatient (CLI) | payer OTHER ==
--- NOTE | 2019-04-17 21:47 | REP ---
CHEST, TWO VIEWS: There is no evidence of acute infiltrate. No pleural effusion is seen. The heart is normal in size. The mediastinal silhouette is unremarkable. The visualized osseous structures are intact. IMPRESSION: No acute pulmonary disease. Electronically Signed by Tadeo Parekh MD 04/18/2019 03:36 P
== END ==
LOC: M LRY 17:02
PROVIDERS: ATTEND Internal Medicine Critical Care Medicine
DX: E84.0 Cystic fibrosis with pulmonary manifestations (principal)

== ENCOUNTER 2019-04-26 09:29 | Emergency (ER) | payer OTHER ==
[~2019-04-26] VITALS: Ht 157.5 cm; Wt 52.7 kg
[~2019-04-26 09:29] MED LIST changes: -AMPH1CAP16; -FLUO10CA8; -IBUP-1114 PO; -REGL10TA6 PO; -[UNRECOGNIZED DRUG - CODE]
[2019-04-26] MEDS ORDERED: AMPH1CAP16 (09:37)
[2019-04-26] MEDS ORDERED: [UNRECOGNIZED DRUG - CODE] (09:37)
[2019-04-26] MEDS ORDERED: FLUO10CA8 (09:37)
[2019-04-26] MEDS ORDERED: IBUP-1114 PO (09:37)
[2019-04-26] MEDS ORDERED: KETOROLAC 30 MG/ML VIAL (J1885) IV ONE (10:00)
[2019-04-26] MEDS ORDERED: NS 1,000 ML IV ONE (10:00)
[2019-04-26] MEDS ORDERED: METOCLOPRAMIDE INJ 10MG/2ML VIAL (J2765) IV ONE (10:00)
[2019-04-26 10:14] LABS: BASO % 0.6 % (0.0-1.0); EOS # 0.3 10^3/uL (0.0-0.5); EOS % 4.2 % (0.0-3.0); HEMATOCRIT 40.6 % (36.0-47.0); HEMOGLOBIN 13.2 g/dl (12.0-15.5); LYMPH # 0.9 10^3/uL (1.5-5.0); LYMPH % 13.4 % (24.0-44.0); MEAN CORPUSCULAR HEMOGLOBIN 29.3 pg (27.0-33.0); MEAN CORPUSCULAR HGB CONC 32.5 g/dl (32.0-36.5); MONO # 0.5 10^3/uL (0.0-0.8); MONO % 7.8 % (0.0-5.0); NEUTROPHILS # 4.9 10^3/uL (1.5-8.5); NEUTROPHILS % 73.7 % (36.0-66.0); PLATELET COUNT, AUTOMATED 198 10^3/uL (150-450); RED BLOOD COUNT 4.51 10^6/uL (4.00-5.40); WHITE BLOOD COUNT 6.6 10^3/uL (4.0-10.0)
[2019-04-26 10:42] LABS: BLOOD UREA NITROGEN 18 MG/DL (7-18); CALCIUM LEVEL 8.7 MG/DL (8.5-10.1); CARBON DIOXIDE LEVEL 28 MEQ/L (21-32); CHLORIDE LEVEL 108 MEQ/L (98-107); CREATININE FOR GFR 0.66 MG/DL (0.55-1.30); GLOMERULAR FILTRATION RATE > 60.0 (>60); GLUCOSE, FASTING 95 MG/DL (70-100); POTASSIUM SERUM 4.1 MEQ/L (3.5-5.1); SODIUM LEVEL 140 MEQ/L (136-145)
[2019-04-26 11:45] VITALS: BP 113/61
[2019-04-26] MEDS ORDERED: REGL10TA6 PO (11:45)
== END 2019-04-26 11:52 | disposition home or self-care (01) ==
LOC: M ED 09:29
DX: B34.9 Viral infection, unspecified (principal); R51 Headache; E84.9 Cystic fibrosis, unspecified; Z79.51 Long term (current) use of inhaled steroids; Z79.899 Other long term (current) drug therapy; Z88.1 Allergy status to other antibiotic agents
CPT/HCPCS: 36415; 80048; 85025; 87486; 87581; 87633; 87798; 94760; 96374; 96375; 99284; J1885; J2765

== ENCOUNTER → 2019-07-01 | Outpatient (REF) | payer OTHER ==
[~2019-07-01] MED LIST changes: +AMPH1CAP16; +FLUO10CA15; +IBUP-1114 PO; +REGL10TA6 PO; +[UNRECOGNIZED DRUG - CODE]
[2019-07-01 18:04] LABS: BASO # 0.1 10^3/uL (0.0-0.2); EOS # 0.5 10^3/uL (0.0-0.5); EOS % 7.3 % (0.0-3.0); HEMATOCRIT 41.1 % (36.0-47.0); HEMOGLOBIN 13.6 g/dl (12.0-15.5); LYMPH # 1.6 10^3/uL (1.5-5.0); LYMPH % 22.7 % (24.0-44.0); MEAN CORPUSCULAR HEMOGLOBIN 29.8 pg (27.0-33.0); MEAN CORPUSCULAR HGB CONC 33.1 g/dl (32.0-36.5); MEAN CORPUSCULAR VOLUME 89.9 fl (80.0-96.0); MONO # 0.8 10^3/uL (0.0-0.8); MONO % 11.6 % (0.0-5.0); NEUTROPHILS # 4.1 10^3/uL (1.5-8.5); NEUTROPHILS % 57.3 % (36.0-66.0); PLATELET COUNT, AUTOMATED 288 10^3/uL (150-450); RED BLOOD COUNT 4.57 10^6/uL (4.00-5.40); WHITE BLOOD COUNT 7.2 10^3/uL (4.0-10.0)
[2019-07-01 18:38] LABS: ALBUMIN 3.9 GM/DL (3.2-5.2); ALT/SGPT 42 U/L (12-78); BILIRUBIN,TOTAL 0.6 MG/DL (0.2-1.0); BLOOD UREA NITROGEN 14 MG/DL (7-18); CALCIUM LEVEL 8.8 MG/DL (8.5-10.1); CARBON DIOXIDE LEVEL 26 MEQ/L (21-32); CHLORIDE LEVEL 105 MEQ/L (98-107); CREATININE FOR GFR 0.73 MG/DL (0.55-1.30); GLOMERULAR FILTRATION RATE > 60.0 (>60); GLUCOSE, FASTING 86 MG/DL (70-100); POTASSIUM SERUM 4.2 MEQ/L (3.5-5.1); SODIUM LEVEL 138 MEQ/L (136-145); TOTAL PROTEIN 7.3 GM/DL (6.4-8.2)
== END ==
LOC: M LAB REF 17:46
PROVIDERS: ATTEND Internal Medicine Critical Care Medicine
DX: E84.0 Cystic fibrosis with pulmonary manifestations (principal)

== ENCOUNTER → 2019-07-08 | Outpatient (REF) | payer OTHER ==
[~2019-07-08] MED LIST changes: +ONDA-83 PO; -ONDA4TAB5 PO
[2019-07-08 14:13] LABS: BASO # 0.1 10^3/uL (0.0-0.2); BASO % 1.2 % (0.0-1.0); EOS # 0.3 10^3/uL (0.0-0.5); EOS % 2.8 % (0.0-3.0); HEMATOCRIT 44.2 % (36.0-47.0); HEMOGLOBIN 14.7 g/dl (12.0-15.5); LYMPH # 2.7 10^3/uL (1.5-5.0); LYMPH % 29.5 % (24.0-44.0); MEAN CORPUSCULAR HEMOGLOBIN 29.7 pg (27.0-33.0); MEAN CORPUSCULAR HGB CONC 33.3 g/dl (32.0-36.5); MEAN CORPUSCULAR VOLUME 89.3 fl (80.0-96.0); MONO # 0.7 10^3/uL (0.0-0.8); MONO % 7.1 % (0.0-5.0); NEUTROPHILS # 5.5 10^3/uL (1.5-8.5); PLATELET COUNT, AUTOMATED 343 10^3/uL (150-450); RED BLOOD COUNT 4.95 10^6/uL (4.00-5.40); WHITE BLOOD COUNT 9.3 10^3/uL (4.0-10.0)
[2019-07-08 14:36] LABS: ALBUMIN 3.7 GM/DL (3.2-5.2); ALT/SGPT 38 U/L (12-78); BILIRUBIN,TOTAL 0.5 MG/DL (0.2-1.0); BLOOD UREA NITROGEN 21 MG/DL (7-18); CALCIUM LEVEL 8.9 MG/DL (8.5-10.1); CARBON DIOXIDE LEVEL 25 MEQ/L (21-32); CHLORIDE LEVEL 104 MEQ/L (98-107); CREATININE FOR GFR 0.86 MG/DL (0.55-1.30); GLOMERULAR FILTRATION RATE > 60.0 (>60); GLUCOSE, FASTING 143 MG/DL (70-100); SODIUM LEVEL 139 MEQ/L (136-145); TOTAL PROTEIN 6.9 GM/DL (6.4-8.2)
== END ==
LOC: M SHH 13:41
PROVIDERS: ATTEND Internal Medicine Critical Care Medicine
DX: E84.0 Cystic fibrosis with pulmonary manifestations (principal); E04.2 Nontoxic multinodular goiter; K86.81 Exocrine pancreatic insufficiency; E55.9 Vitamin D deficiency, unspecified

== ENCOUNTER → 2019-07-14 | Outpatient (REF) | payer OTHER ==
[2019-07-14 15:49] LABS: BASO # 0.1 10^3/uL (0.0-0.2); BASO % 0.9 % (0.0-1.0); EOS # 0.6 10^3/uL (0.0-0.5); EOS % 7.1 % (0.0-3.0); HEMATOCRIT 44.5 % (36.0-47.0); HEMOGLOBIN 14.5 g/dl (12.0-15.5); LYMPH # 1.8 10^3/uL (1.5-5.0); LYMPH % 22.8 % (24.0-44.0); MEAN CORPUSCULAR HEMOGLOBIN 29.2 pg (27.0-33.0); MEAN CORPUSCULAR HGB CONC 32.6 g/dl (32.0-36.5); MEAN CORPUSCULAR VOLUME 89.5 fl (80.0-96.0); MONO # 0.7 10^3/uL (0.0-0.8); MONO % 8.8 % (0.0-5.0); NEUTROPHILS # 4.7 10^3/uL (1.5-8.5); NEUTROPHILS % 60.1 % (36.0-66.0); PLATELET COUNT, AUTOMATED 283 10^3/uL (150-450); RED BLOOD COUNT 4.97 10^6/uL (4.00-5.40); WHITE BLOOD COUNT 7.8 10^3/uL (4.0-10.0)
[2019-07-14 16:17] LABS: ALBUMIN 3.7 GM/DL (3.2-5.2); ALT/SGPT 51 U/L (12-78); BILIRUBIN,TOTAL 0.5 MG/DL (0.2-1.0); BLOOD UREA NITROGEN 16 MG/DL (7-18); CALCIUM LEVEL 9.2 MG/DL (8.5-10.1); CARBON DIOXIDE LEVEL 27 MEQ/L (21-32); CHLORIDE LEVEL 105 MEQ/L (98-107); CREATININE FOR GFR 0.64 MG/DL (0.55-1.30); GLOMERULAR FILTRATION RATE > 60.0 (>60); GLUCOSE, FASTING 76 MG/DL (70-100); POTASSIUM SERUM 4.4 MEQ/L (3.5-5.1); SODIUM LEVEL 138 MEQ/L (136-145)
== END ==
LOC: M SHH 14:38 → M LAB REF 14:38
PROVIDERS: ATTEND Internal Medicine Critical Care Medicine
DX: E84.0 Cystic fibrosis with pulmonary manifestations (principal); E04.2 Nontoxic multinodular goiter; K86.81 Exocrine pancreatic insufficiency; E55.9 Vitamin D deficiency, unspecified

== ENCOUNTER → 2019-09-01 | Outpatient (CLI) | payer OTHER ==
--- NOTE | 2019-09-01 14:47 | REP ---
PA and lateral chest: The patient has cystic fibrosis on the studies performed to evaluate for pneumothorax: Comparison is 04/17/2019. There is no pneumothorax. There is no pleural fluid collection. There are no focal infiltrates. There are no nodules or masses. There are no pleural effusions. There is a right IJ Bdkdfd-X-Ybha catheter with the tip in the right atrium in satisfactory location, unchanged from the prior study. Lung velasquez are adequately inflated and clear. Cardiac size is normal. The charlie, mediastinum, skeletal structures are unremarkable. Impression: No pneumothorax or other acute cardiopulmonary finding. Lung velasquez are clear and unchanged. Stable right IJ Ggjzgw-D-Gowg catheter, unchanged. Electronically Signed by Tadeo Buchanan MD 09/01/2019 02:38 P
== END ==
LOC: M LRY 14:01
PROVIDERS: ATTEND Internal Medicine Critical Care Medicine
DX: R07.9 Chest pain, unspecified (principal); Z95.828 Presence of other vascular implants and grafts

== ENCOUNTER 2019-09-30 05:15 | Emergency (ER) | payer OTHER ==
[~2019-09-30] VITALS: Ht 154.9 cm; Wt 50.0 kg
[~2019-09-30 05:15] MED LIST changes: +RALTEGRAVIR 400 MG TAB (ISENTRESS) PO SCH; +TRUVADA 200MG/300MG TABLET PO SCH
[2019-09-30 05:45] VITALS: BP 118/74
[2019-09-30] MEDS ORDERED: AZIT500T5 PO (06:12)
[2019-09-30] MEDS ORDERED: MULTCAP PO (06:12)
[2019-09-30] MEDS ORDERED: ELEX1TAB PO (06:12)
[2019-09-30] MEDS ORDERED: TRUVTAB PO (06:55)
[2019-09-30] MEDS ORDERED: RALT40TA PO (06:55)
[2019-09-30 07:00] LABS: BASO # 0.1 10^3/uL (0.0-0.2); BASO % 0.6 % (0.0-1.0); EOS % 0.2 % (0.0-3.0); HEMATOCRIT 39.5 % (36.0-47.0); HEMOGLOBIN 13.2 g/dl (12.0-15.5); LYMPH % 11.6 % (24.0-44.0); MEAN CORPUSCULAR HEMOGLOBIN 29.7 pg (27.0-33.0); MEAN CORPUSCULAR HGB CONC 33.4 g/dl (32.0-36.5); MEAN CORPUSCULAR VOLUME 88.8 fl (80.0-96.0); MONO # 0.5 10^3/uL (0.0-0.8); NEUTROPHILS # 6.8 10^3/uL (1.5-8.5); NEUTROPHILS % 81.2 % (36.0-66.0); PLATELET COUNT, AUTOMATED 286 10^3/uL (150-450); RED BLOOD COUNT 4.45 10^6/uL (4.00-5.40); WHITE BLOOD COUNT 8.3 10^3/uL (4.0-10.0)
[2019-09-30] MEDS ORDERED: TRUVADA 200MG/300MG TABLET PO ONE (07:00)
[2019-09-30] MEDS ORDERED: cefTRIAXone SOD 250MG VIAL (J0696 PER 250MG) IM ONE (07:00)
[2019-09-30] MEDS ORDERED: ONDANSETRON 4 MG ORAL DISINTEGRATING TAB (Q0162 PER 1MG) PO ONE ×3 (07:00→11:45)
[2019-09-30] MEDS ORDERED: LEVONORGESTREL 1.5MG TABLET PO ONE (07:00)
[2019-09-30] MEDS ORDERED: RALTEGRAVIR 400 MG TAB (ISENTRESS) PO ONE (07:00)
[2019-09-30] MEDS ORDERED: AZITHROMYCIN 250MG TABLET PO ONE (07:00)
[2019-09-30] MEDS ORDERED: metroNIDAZOLE (FLAGYL) 500 MG TAB PO ONE (07:00)
[2019-09-30] MEDS ORDERED: EXPOSURE KIT-ADULT 7 DAY SUPPLY PO ONE (07:00)
[2019-09-30] MEDS ORDERED: LIDOCAINE 1% SDV 5 ML VIAL DILUENT ONE (07:00)
[2019-09-30 07:35] LABS: ALT/SGPT 26 U/L (12-78); BILIRUBIN,TOTAL 0.4 MG/DL (0.2-1.0); BLOOD UREA NITROGEN 15 MG/DL (7-18); CARBON DIOXIDE LEVEL 27 MEQ/L (21-32); CHLORIDE LEVEL 108 MEQ/L (98-107); CREATININE FOR GFR 0.78 MG/DL (0.55-1.30); GLOMERULAR FILTRATION RATE > 60.0 (>60); GLUCOSE, FASTING 114 MG/DL (70-100); POTASSIUM SERUM 4.1 MEQ/L (3.5-5.1); SODIUM LEVEL 139 MEQ/L (136-145); TOTAL PROTEIN 7.5 GM/DL (6.4-8.2)
[2019-09-30] MEDS ORDERED: ACETAMINOPHEN 325 MG TAB PO ONE (08:15)
[2019-09-30 08:25] LABS: CHLAMYDIA DNA AMPLIFICATION NEGATIVE (NEGATIVE); GC DNA AMPLIFICATION NEGATIVE (NEGATIVE)
[2019-09-30 08:28] LABS: HCG, SERUM QUALITATIVE NEGATIVE (NEGATIVE)
[2019-09-30 08:56] LABS: HEPATITIS B SURFACE ANTIBODY NEGATIVE (POSITIVE)
[2019-09-30 09:07] LABS: HEPATITIS B SURFACE ANTIGEN NEGATIVE (NEGATIVE)
[2019-09-30 09:35] LABS: HEPATITIS C VIRUS ABY INDEX 0.1 INDEX (<0.8); HIV 1&2 SCREEN CENTAUR NEGATIVE (NEGATIVE)
== END 2019-09-30 12:00 | disposition home or self-care (01) ==
LOC: M ED 05:15
DX: T76.21XA Adult sexual abuse, suspected, initial encounter (principal); X58.XXXA Exposure to other specified factors, initial encounter; Y92.89 Other specified places as the place of occurrence of the external cause; E84.9 Cystic fibrosis, unspecified; Z79.899 Other long term (current) drug therapy; Z88.1 Allergy status to other antibiotic agents
CPT/HCPCS: 36415; 80053; 84703; 85025; 86706; 86780; 86803; 87340; 87389; 87491; 87591; 99283; J0696; Q0162

== ENCOUNTER → 2019-10-29 | Outpatient (REF) | payer OTHER ==
[~2019-10-29] MED LIST changes: +AZIT500T5 PO; +ELEX1TAB PO; +MULTCAP PO; +RALT40TA PO; -RALTEGRAVIR 400 MG TAB (ISENTRESS) PO SCH; -TRUVADA 200MG/300MG TABLET PO SCH; +TRUVTAB PO
[2019-10-29 14:01] LABS: BASO # 0.1 10^3/uL (0.0-0.2); BASO % 1.3 % (0.0-1.0); EOS # 0.4 10^3/uL (0.0-0.5); EOS % 6.9 % (0.0-3.0); HEMATOCRIT 38.8 % (36.0-47.0); HEMOGLOBIN 13.5 g/dl (12.0-15.5); LYMPH # 1.5 10^3/uL (1.5-5.0); LYMPH % 27.6 % (24.0-44.0); MEAN CORPUSCULAR HEMOGLOBIN 31.5 pg (27.0-33.0); MEAN CORPUSCULAR HGB CONC 34.8 g/dl (32.0-36.5); MEAN CORPUSCULAR VOLUME 90.4 fl (80.0-96.0); MONO # 0.4 10^3/uL (0.0-0.8); MONO % 7.7 % (0.0-5.0); NEUTROPHILS # 3.1 10^3/uL (1.5-8.5); NEUTROPHILS % 56.1 % (36.0-66.0); PLATELET COUNT, AUTOMATED 324 10^3/uL (150-450); RED BLOOD COUNT 4.29 10^6/uL (4.00-5.40); WHITE BLOOD COUNT 5.5 10^3/uL (4.0-10.0)
[2019-10-29 14:36] LABS: ALBUMIN 3.8 GM/DL (3.2-5.2); ALT/SGPT 34 U/L (12-78); BILIRUBIN,TOTAL 0.6 MG/DL (0.2-1.0); BLOOD UREA NITROGEN 19 MG/DL (7-18); CALCIUM LEVEL 9.5 MG/DL (8.5-10.1); CARBON DIOXIDE LEVEL 30 MEQ/L (21-32); CHLORIDE LEVEL 102 MEQ/L (98-107); GLOMERULAR FILTRATION RATE > 60.0 (>60); GLUCOSE, FASTING 79 MG/DL (70-100); POTASSIUM SERUM 4.1 MEQ/L (3.5-5.1); SODIUM LEVEL 138 MEQ/L (136-145); TOTAL PROTEIN 7.4 GM/DL (6.4-8.2)
[2019-10-29 19:54] LABS: HCG, SERUM QUALITATIVE NEGATIVE (NEGATIVE)
[2019-10-29 21:00] LABS: CHLAMYDIA DNA AMPLIFICATION NEGATIVE (NEGATIVE); GC DNA AMPLIFICATION NEGATIVE (NEGATIVE)
[2019-10-30 10:23] LABS: HEPATITIS B SURFACE ANTIGEN NEGATIVE (NEGATIVE)
[2019-10-30 10:51] LABS: HEPATITIS C VIRUS ABY INDEX 0.1 INDEX (<0.8)
[2019-10-30 10:52] LABS: HIV 1&2 SCREEN CENTAUR NEGATIVE (NEGATIVE)
== END ==
LOC: M SFHCPLAZ 12:02
PROVIDERS: ATTEND Internal Medicine Infectious Disease
DX: T74.21XA Adult sexual abuse, confirmed, initial encounter (principal); Y07.9 Unspecified perpetrator of maltreatment and neglect; Y99.9 Unspecified external cause status
CPT/HCPCS: 36415; 80053; 84703; 85025; 86780; 86803; 87340; 87389; 87491; 87591; 90471; 90746; G0463

== ENCOUNTER 2019-12-11 20:56 | Emergency (ER) | payer OTHER ==
[~2019-12-11] VITALS: Ht 157.5 cm; Wt 72.7 kg
[2019-12-11] MEDS ORDERED: KETOROLAC 30 MG/ML 1ML VIAL IV ONE (22:45)
[2019-12-11] MEDS ORDERED: NS 500 ML IV ONE (22:45)
[2019-12-11 23:09] LABS: BASO # 0.1 10^3/uL (0.0-0.2); BASO % 0.8 % (0.0-1.0); EOS # 0.5 10^3/uL (0.0-0.5); EOS % 7.1 % (0.0-3.0); HEMATOCRIT 35.4 % (36.0-47.0); HEMOGLOBIN 12.2 g/dl (12.0-15.5); MEAN CORPUSCULAR HEMOGLOBIN 30.6 pg (27.0-33.0); MEAN CORPUSCULAR HGB CONC 34.5 g/dl (32.0-36.5); MEAN CORPUSCULAR VOLUME 88.7 fl (80.0-96.0); MONO # 0.7 10^3/uL (0.0-0.8); MONO % 9.4 % (0.0-5.0); NEUTROPHILS # 4.3 10^3/uL (1.5-8.5); NEUTROPHILS % 56.6 % (36.0-66.0); PLATELET COUNT, AUTOMATED 229 10^3/uL (150-450); RED BLOOD COUNT 3.99 10^6/uL (4.00-5.40); WHITE BLOOD COUNT 7.6 10^3/uL (4.0-10.0)
[2019-12-12 00:22] LABS: ALBUMIN 3.6 GM/DL (3.2-5.2); ALT/SGPT 25 U/L (12-78); BILIRUBIN,DIRECT 0.1 MG/DL (0.0-0.2); BILIRUBIN,TOTAL 0.4 MG/DL (0.2-1.0); BLOOD UREA NITROGEN 14 MG/DL (7-18); CALCIUM LEVEL 8.7 MG/DL (8.5-10.1); CARBON DIOXIDE LEVEL 26 MEQ/L (21-32); CHLORIDE LEVEL 107 MEQ/L (98-107); CREATININE FOR GFR 0.66 MG/DL (0.55-1.30); GLOMERULAR FILTRATION RATE > 60.0 (>60); GLUCOSE, FASTING 93 MG/DL (70-100); NT-PRO BNP 36 PG/ML (<125); SODIUM LEVEL 138 MEQ/L (136-145); TOTAL PROTEIN 6.7 GM/DL (6.4-8.2)
[2019-12-12 00:45] VITALS: BP 111/71
[2019-12-12] MEDS ORDERED: LevoFLOXacin 750 MG TABLET PO ONE (01:30)
[2019-12-12] MEDS ORDERED: LINEZOLID 600MG TABLET (ZYVOX) PO ONE (01:30)
[2019-12-12] MEDS ORDERED: ZYVO1TAB PO (01:30)
[2019-12-12] MEDS ORDERED: LEVA750T7 PO (01:30)
--- NOTE | 2019-12-12 08:11 | ECGEPIP ---
[facility] - ED Test Date: 2019-12-11 Pat Name: EUGENIO PISANO Department: Room: - Gender: Female [employer] Keeper: marlon : 1995 Requested By: DANIEL Verdugo Order Number: [id number] Reading MD: Ashleigh Reynoso Measurements Intervals [place] Rate: 65 P: 34 UT: 147 QRS: 15 QRSD: 83 T: 47 QT: 391 QTc: 407 Interpretive Statements SINUS RHYTHM No prior Electronically Signed on 12-12-2019 8:11:41 EDT by Ashleigh Reynoso
--- NOTE | 2019-12-12 08:12 | REP ---
Portable chest x-ray: Single view. History: Dyspnea and cough. Comparison chest x-ray: September 01, 2019. Findings: A right-sided Uvjoer-E-Czhe catheter remains in place unchanged. Old jewelry is noted. The lungs are well inflated and clear. Heart size is normal. EKG monitoring electrodes are seen. No bony abnormality is noted. Pulmonary vasculature is not increased. Impression: No active disease. Electronically Signed by Alli Landry MD 12/12/2019 08:04 A
== END 2019-12-12 02:00 | disposition home or self-care (01) ==
LOC: M ED 20:56
DX: E84.9 Cystic fibrosis, unspecified (principal); Z79.899 Other long term (current) drug therapy; Z88.1 Allergy status to other antibiotic agents
CPT/HCPCS: 71045; 80048; 80076; 83605; 83880; 84702; 85025; 87040; 87486; 87581; 87633; 87798; 93005; 93041; 94760; 96361; 96374; 99285; J1885

== ENCOUNTER 2020-07-07 15:56 | Emergency (ER) | payer MEDICARE, OTHER ==
[~2020-07-07] VITALS: Ht 157.5 cm; Wt 55.9 kg
[~2020-07-07 15:56] MED LIST changes: -FLUO10CA15; +FLUO10CA16; +LEVA750T7 PO; +SODIUM CHLORIDE 0.9% INJ 10 ML SYR IV SCH; +ZYVO1TAB PO
--- OUTSIDE RECORDS SUMMARY | 2020-07-07 16:03 | CCD | Summary of Care ---
Author Author [facility] Address Unknown Phone Unavailable Care Team Providers Care Cash Application Clerk Name Role Phone Hortencia Luis NP PCP Encounter Details Care Team Description Date Type Department Walker Eid MD [address] [place] [address] 2nd [place] [address] No Show 05/17/2020 Telemedicine [facility] at [facility] [address] [address] Allergies Comments Active Allergy Reactions Severity Noted Date Self reported - hives [employer]-In Food Hives 07/20/2019 Vancomycin Hives, High 05/28/2018 Shortness Of Breath, Rash documented as of this encounter (statuses as of 06/27/2020) Medications End Date Status Medication Sig Dispensed Refills Start Date Active calcium carbonate Take 600 mg 0 (OS-ARIELA) 600 MG TABS by mouth Two times daily with meals Active Nebulizers (NEBULIZER Use as 1 each 0 05/24 COMPRESSOR) directed. 8 MISCIndications: Cystic Respironics fibrosis with pulmonary Innospire manifestations Elegance Compressor or Luis Vios Pro. E84.0, FLOYD=99. Active Blood Glucose Monitoring Use as 1 each 0 0 Suppl (FREESTYLE LITE) directed. 9 DINORAH Check 2-3 times daily Dx R73.9 Active FLUoxetine (PROZAC) 10 MG Take 20 mg by 0 capsule mouth daily Active Misc. Devices (DURABLE Use as 1 each 11 MEDICAL EQUIPMENT SEE directed. 9 SIG) MISCIndications: Please Cystic fibrosis with provide pulmonary manifestations monthly maintenance port flushes and supplies per protocol for DOUBLE LUMEN port. Active Misc. Devices (DURABLE Use as 2 each 11 MEDICAL EQUIPMENT SEE directed. 9 SIG) MISCIndications: Provide 1 Cystic fibrosis with Sidestream pulmonary manifestations neb kit and 1 Cece LC Plus neb kit. E84.0, FLOYD=99. Active Phytonadione 5 MG Oral Take 1 tablet 12 tablet 5 0 Tablet by mouth once 0 (MEPHYTON)Indications: a week Cystic fibrosis with pulmonary manifestations Active Tobramycin 300 MG/5ML Take 5 mLs by 280 mL 3 Inhalation Nebulization nebulization 0 Solution Two Times (Harpreet)Indications: Cystic Daily fibrosis with pulmonary manifestations Active Sodium Chloride 7 % Take 4 mLs by 360 mL 3 08/23 Inhalation Nebulization nebulization 0 SolutionIndications: daily Cystic fibrosis with pulmonary manifestations Active Pancrelipase Take 4 2160 capsule 3 (Lam-Igjl-Mrjk) [place] 0 [id number] UNIT Oral mouth Three Capsule Delayed Release times daily ParticlesIndications: with meals Cystic fibrosis with And take 3 pulmonary manifestations capsules with snacks. Active MVW Complete Formulation Take 2 180 capsule 3 0 D5000 Oral capsules by 0 CapsuleIndications: mouth daily Cystic fibrosis with pulmonary manifestations Active Dornase Isaak 1 MG/ML Inhale 2.5 mg 225 mL 3 Inhalation Solution into the 0 (PULMOZYME)Indications: lungs daily Cystic fibrosis with pulmonary manifestations Active Azithromycin 250 MG Oral Take 1 tablet 90 tablet 3 Tablet by mouth 0 (Zithromax)Indications: daily Cystic fibrosis with pulmonary manifestations Active Albuterol Sulfate HFA 108 Inhale 2 3 Inhaler 3 (90 Base) MCG/ACT puffs into 0 Inhalation Aerosol the lungs Solution (PROVENTIL every 4 HFA;VENTOLIN (four) hours HFA)Indications: Cystic as needed fibrosis with pulmonary manifestations Active Albuterol Sulfate (2.5 Take 3 mLs by 540 mL 5 0 MG/3ML) 0.083% Inhalation nebulization 0 Nebulization Solution every 4 (PROVENTIL)Indications: (four) hours Cystic fibrosis with as needed pulmonary manifestations Active Xpigdjaw-Qkdrrmw-Yvyqeg&I Take 2 252 tablet 3 vacaf 100-50-75 & 150 MG orange 0 Oral Tablet Therapy Pack tablets in (Trikafta)Indications: the morning. 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 Cystic fibrosis 08/25/2018 Vitamin D deficiency 08/25/2018 Hyperglycemia 08/25/2018 Pancreatic insufficiency due to cystic fibrosis 09/2018 documented as of this encounter (statuses as of 06/27/2020) Resolved Problems Problem Noted Date Resolved Date CF (cystic fibrosis) 02/09/2019 08/16/2019 documented as of this encounter (statuses as of 06/27/2020) Immunizations Name Administration Dates Next Due Influenza Quad IM Pres 04/13/2019, 06/02/2018 Free (0.5 mL dose) documented as of this encounter Social History Date Tobacco Use Types Packs/Day Years Used Never Smoker Smokeless Tobacco: Never Used Drinks/Week oz/Week Comments Alcohol Use No Alcohol Habits Answer Date Recorded How often do you have a drink containing alcohol? Never 06/02/2018 How many drinks containing alcohol do you have on No t asked a typical day when you are drinking? How often do you have six or more drinks on one Not asked occasion? Sex Assigned at Date Recorded Not on file documented as of this encounter Last Filed Vital Signs Not on filedocumented in this encounter Plan of Treatment Care Team Description Date Type Specialty Walker Eid MD [address] [place] [address] [address] [place] [address] [phone] 07/18/2020 Telemedicine Pediatric Pulmonolo gy Health Maintenance Due Date Last Done Comments MMR Vaccines ( - 1994 Standard series) Varicella Vaccines (1 of 1994 2 - 2-dose childhood series) DTaP,Tdap,and Td Vaccines 2000 (1 - Tdap) HIV Screening 2006 Cervical Cancer Screening 2014 3 years Influenza Vaccine 03/24/2020 04/13/2019, 06/02/2018 Pneumococcal Vaccine: 65+ 2058 Years (1 of 1 - PPSV23) HIB Vaccines Aged Out No longer eligible based on patient's age to complete this topic Hepatitis A Vaccines Aged Out No longer eligibl e based on patient's age to complete this topic Hepatitis B Vaccines Aged Out No longer eligibl e based on patient's age to complete this topic IPV Vaccines Aged Out No longer eligible based on patient's age to complete this topic Pneumococcal Vaccine: Aged Out No longer eligib le based on patient's age to Pediatrics (0 to 5 Years) complete this topic and At-Risk Patients (6 to 64 Years) documented as of this encounter Implants Device Identifier Shelf Expiration Date Model / Serial / L ot Implanted Type Area Manufactur er 03/23/2020 [id number] / / [id number] Picc- 5fr 2l Powerpicc. - [id number] Right: Chest B KARTHIK Implanted: Qty: 1 on 10/24/2018 by MEDICAL Mary Saenz MD at [facility] Description:Trimmed 17.5 cm IJ 03/23/2020 [id number] / / [id number] Port-Powerport Duo 9.5fr-2l - Right: Chest BARD [id number] Wall MEDICAL Implanted: Qty: 1 on 02/09/2019 by Mary Saenz MD at [facility] documented as of this encounter Procedures Comments Procedure Name Priority Date/Time Associated Diag nosis LAB RESULTS 06/27/2020 (OUTSIDE/HISTORICAL) 10:56 AM EST documented in this encounter Results * LAB RESULTS (OUTSIDE/HISTORICAL) (06/27/2020 10:56 AM EST) Narrative Performed At This result has an attachment that is n ot available. documented in this encounter
--- OUTSIDE RECORDS SUMMARY | 2020-07-07 16:05 | CCD ---
Author Author [facility] Organization [facility] Address Unknown Phone Unavailable Care Team Providers Care Projector Operator Name Role Phone FEDORS, KANA JUNIOR ACCOUNTANT BOOKKEEPER Unavailable Unavailable FEDORS, KANA JUNIOR ACCOUNTANT BOOKKEEPER Unavailable Unavailable FEDORS, KANA JUNIOR ACCOUNTANT BOOKKEEPER Unavailable Unavailable FEDORS, KANA JUNIOR ACCOUNTANT BOOKKEEPER Unavailable Unavailable FEDORS, KANA JUNIOR ACCOUNTANT BOOKKEEPER Unavailable Unavailable FEDORS, KANA JUNIOR ACCOUNTANT BOOKKEEPER Unavailable Unavailable FEDORS, KANA JUNIOR ACCOUNTANT BOOKKEEPER Unavailable Unavailable FEDORS, KANA JUNIOR ACCOUNTANT BOOKKEEPER Unavailable Unavailable FEDORS, KANA JUNIOR ACCOUNTANT BOOKKEEPER Unavailable Unavailable FEDORS, KANA JUNIOR ACCOUNTANT BOOKKEEPER Unavailable Unavailable FEDORS, KANA JUNIOR ACCOUNTANT BOOKKEEPER Unavailable Unavailable FEDORS, KANA JUNIOR ACCOUNTANT BOOKKEEPER Unavailable Unavailable FEDORS, KANA JUNIOR ACCOUNTANT BOOKKEEPER Unavailable Unavailable FEDORS, KANA JUNIOR ACCOUNTANT BOOKKEEPER Unavailable Unavailable FEDORS, KANA JUNIOR ACCOUNTANT BOOKKEEPER Unavailable Unavailable FEDORS, KANA JUNIOR ACCOUNTANT BOOKKEEPER Unavailable Unavailable FEDORS, KANA JUNIOR ACCOUNTANT BOOKKEEPER Unavailable Unavailable FEDORS, KANA JUNIOR ACCOUNTANT BOOKKEEPER Unavailable Unavailable FEDORS, KANA JUNIOR ACCOUNTANT BOOKKEEPER Unavailable Unavailable FEDORS, KANA JUNIOR ACCOUNTANT BOOKKEEPER Unavailable Unavailable Alina WILSON Unavailable Unavailable DEBBIE ANDREWS Unavailable Unavailable Godwin CALHOUN MNT Unavailable Unavailable Walker Eid MD Unavailable Unavailable Walker Eid MD Unavailable Unavailable Walker Eid MD Unavailable Unavailable Walker Eid MD Unavailable Unavailable Walker Eid MD Unavailable Unavailable Walker Eid MD Unavailable Unavailable Walker Eid MD Unavailable Unavailable Walker Eid MD Unavailable Unavailable Walker Eid MD Unavailable Unavailable Walker Eid MD Unavailable Unavailable Eid Sumendra Unavailable Unavailable Eid Sumendra MD Unavailable Unavailable Eid, Sumendra MD Unavailable Unavailable Eid Sumendra MD Unavailable Unavailable Eid, Sumendra MD Unavailable Unavailable Eid, Sumendra MD Unavailable Unavailable Eid, Sumendra MD Unavailable Unavailable Eid, Sumendra MD Unavailable Unavailable Eid, Sumendra MD Unavailable Unavailable Eid, Sumendra MD Unavailable Unavailable Eid, Sumendra MD Unavailable Unavailable Eid, Sumendra MD Unavailable Unavailable Eid, Sumendra MD Unavailable Unavailable Eid, Sumendra MD Unavailable Unavailable Eid, Sumendra MD Unavailable Unavailable Eid, Sumendra MD Unavailable Unavailable Eid, Sumendra MD Unavailable Unavailable Eid, Sumendra MD Unavailable Unavailable Eid, Sumendra MD Unavailable Unavailable Eid, Sumendra MD Unavailable Unavailable Eid Sumendra MD Unavailable Unavailable Eid Sumendra MD Unavailable Unavailable JAYLIN, E AYAN VILLALOBOS Unavailable Unavailable JAYLIN, E AYAN VILLALOBOS Unavailable Unavailable JAYLIN, E AYAN VILLALOBOS Unavailable Unavailable JAYLIN, E AYAN VILLALOBOS Unavailable Unavailable JAYLIN, E AYAN VILLALOBOS Unavailable Unavailable JAYLIN, Jose Carlos BOTELLO MD Unavailable Unavailable JAYLIN, Jose Carlos BOTELLO MD Unavailable Unavailable JAYLIN, Jose Carlos BOTELLO MD Unavailable Unavailable JAYLIN, Jose Carlos BOTELLO MD Unavailable Unavailable JAYLIN, Jose Carlos BOTELLO MD Unavailable Unavailable JAYLIN, E AYAN VILLALOBOS Unavailable Unavailable JAYLIN, Jose Carlos BOTELLO MD Unavailable Unavailable JAYLIN, E AYAN VILLALOBOS Unavailable Unavailable JAYLIN, Jose Carlos BOTELLO MD Unavailable Unavailable JAYLIN, E AYAN VILLALOBOS Unavailable Unavailable JAYLIN, Jose Carlos BOTELLO MD Unavailable Unavailable JAYLIN, Jose Carlos BOTELLO MD Unavailable Unavailable JAYLIN, Jose Carlos BOTELLO MD Unavailable Unavailable JAYLIN, Jose Carlos BOTELLO MD Unavailable Unavailable JAYLIN, Jose Carlos BOTELLO MD Unavailable Unavailable JAYLIN, Jose Carlos BOTELLO MD Unavailable Unavailable JAYLIN, Jose Carlos BOTELLO MD Unavailable Unavailable JAYLIN, Jose Carlos BOTELLO MD Unavailable Unavailable JAYLIN, Jose Carlos BOTELLO MD Unavailable Unavailable JAYLIN, E AYAN VILLALOBOS Unavailable Unavailable JAYLIN, E AYAN VILLALOBOS Unavailable Unavailable JAYLIN, E AYAN VILLALOBOS Unavailable Unavailable JAYLIN, E AYAN VILLALOBOS Unavailable Unavailable JAYLIN, E AYAN VILLALOBOS Unavailable Unavailable JAYLIN, E AYAN VILLALOBOS Unavailable Unavailable JAYLIN, E AYAN VILLALOBOS Unavailable Unavailable JAYLIN, E AYAN VILLALOBOS Unavailable Unavailable JAYLIN, E AYAN VILLALOBOS Unavailable Unavailable JAYLIN, E AYAN VILLALOBOS Unavailable Unavailable JAYLIN, E AYAN VILLALOBOS Unavailable Unavailable JAYLIN, E AYAN VILLALOBOS Unavailable Unavailable JAYLIN, E AYAN VILLALOBOS Unavailable Unavailable JAYLIN, E AYAN VILLALOBOS Unavailable Unavailable JAYLIN, E AYAN VILLALOBOS Unavailable Unavailable JAYLIN, E AYAN VILLALOBOS Unavailable Unavailable JAYLIN, E AYAN VILLALOBOS Unavailable Unavailable JAYLIN, E AYAN VILLALOBOS Unavailable Unavailable JAYLIN, E AYAN VILLALOBOS Unavailable Unavailable JAYLIN, E AYAN VILLALOBOS Unavailable Unavailable JAYLIN, E AYAN VILLALOBOS Unavailable Unavailable JAYLIN, E AYAN VILLALOBOS Unavailable Unavailable JAYLIN, E AYAN VILLALOBOS Unavailable Unavailable JAYLIN, E AYAN VILLALOBOS Unavailable Unavailable JAYLIN, E AYAN VILLALOBOS Unavailable Unavailable JAYLIN, E AYAN VILLALOBOS Unavailable Unavailable JAYLIN, E AYAN VILLALOBOS Unavailable Unavailable JAYLIN, E AYAN VILLALOBOS Unavailable Unavailable JAYLIN, E AYAN VILLALOBOS Unavailable Unavailable JAYLIN, E AYAN VILLALOBOS Unavailable Unavailable JAYLIN, E AYAN VILLALOBOS Unavailable Unavailable JAYLIN, E AYAN VILLALOBOS Unavailable Unavailable JYALIN, E AYAN VILLALOBOS Unavailable Unavailable JAYLIN, E AYAN VILLALOBOS Unavailable Unavailable JAYLIN, E AYAN VILLALOBOS Unavailable Unavailable JAYLIN, E AYAN VILLALOBOS Unavailable Unavailable JAYLIN, E AYAN VILLALOBOS Unavailable Unavailable JAYLIN, E AYAN VILLALOBOS Unavailable Unavailable JAYLIN, E AYAN VILLALOBOS Unavailable Unavailable JAYLIN, E AYAN VILLALOBOS Unavailable Unavailable JAYLIN, E AYAN VILLALOBOS Unavailable Unavailable JAYLIN, E AYAN VILLALOBOS Unavailable Unavailable JAYLIN, E AYAN VILLALOBOS Unavailable Unavailable JAYLIN, E AYAN VILLALOBOS Unavailable Unavailable JAYLIN, E AYAN VILLALOBOS Unavailable Unavailable JAYLIN, E AYAN VILLALOBOS Unavailable Unavailable JAYLIN, E AYAN VILLALOBOS Unavailable Unavailable JAYLIN, E AYAN VILLALOBOS Unavailable Unavailable JAYLIN, E AYAN VILLALOBOS Unavailable Unavailable JAYLIN, E AYAN VILLALOBOS Unavailable Unavailable JAYLIN, E AYAN VILLALOBOS Unavailable Unavailable JAYLIN, E AYAN VILLALOBOS Unavailable Unavailable JAYLIN, E AYAN VILLALOBOS Unavailable Unavailable JAYLIN, E AYAN VILLALOBOS Unavailable Unavailable JAYLIN, E AYAN VILLALOBOS Unavailable Unavailable GARCIAPRISCILA Unavailable Unavailable Re-disclosure Warning The records that you are about to access may contain information from federally-assisted alcohol or drug abuse programs. If such information is present, then the following federally mandated warning applies: This information has been disclosed to you from records protected by federal confidentiality rules (42 CFR part 2). The federal rules prohibit you from making any further disclosure of this information unless further disclosure is expressly permitted by the written consent of the person to whom it pertains or as otherwise permitted by 42 CFR part 2. A general authorization for the release of medical or other information is NOT sufficient for this purpose. The Federal rules restrict any use of the information to criminally investigate or prosecute any alcohol or drug abuse patient.The records that you are about to access may contain highly sensitive health information, the redisclosure of which is protected by Article 27-F of the [facility] Public Health law. If you continue you may have access to information: Regarding HIV / AIDS; Provided by facilities licensed or operated by the [facility] Office of Mental Health; or Provided by the [facility] Office for People With Developmental Disabilities. If such information is present, then the following [facility] mandated warning applies: This information has been disclosed to you from confidential records which are protected by state law. State law prohibits you from making any further disclosure of this information without the specific written consent of the person to whom it pertains, or as otherwise permitted by law. Any unauthorized further disclosure in violation of state law may result in a fine or longterm sentence or both. A general authorization for the release of medical or other information is NOT sufficient authorization for further disc losure. Allergies and Adverse Reactions Type Description Substance Reaction Status Data Source(s ) Vancomycin HCl Vancomycin HCl Vancomycin 50 MG/ML Oral Solutio n Hives, trouble breathing Active eC1 ([facility]) Food allergy CUCUMBER-IN FOOD CUCUMBER-IN FOOD [facility] Encounters Encounter Providers Location Date Indications Data Source(s ) Outpatient Attender: Walker Eid MD 07/18/2020 12:00:00 AM [facility] Outpatient Attender: Walker Eid MD 05/17/2020 12:00:00 AM [facility] Outpatient Attender: LANEY CALHOUN MNT [id number] 02/22/2020 03:30:22 P M [facility] Outpatient Attender: KANA OWUSU NPReferrer: DEBBIE Gregory [id number] 02/22/2020 12:00:00 AM EDT - 02/24/2020 08:55:56 AM EDT Cystic fibrosis, [facility] Cystic fibrosis, unspecified Outpatient Attender: PRISCILA GARCIA 02/22/2020 12:00:00 AM [facility] Outpatient Attender: KANA OWUSU NP 02/15/2020 12:00:00 A [place] [address] [address] 12/29/2019 12:00:00 AM EDT eCW1 ([facility]) Outpatient Referrer: Walker Eid MD 11/23/2019 12:00:00 AM [facility] Outpatient Attender: Walker Eid MDReferrer: DEBBIE REECE [id number] 11/09/2019 12:00:00 AM EDT - 11/09/2019 03:10:54 PM EDT Cystic fibrosis, unspecified [facility] Cystic fibrosis, unspecified [facility] [address] [address] 10/29/2019 12:00:00 AM EDT eCW1 ([facility]) Outpatient Attender: AYAN MOSQUEDA MD 10/28/2019 12:00 :00 AM [facility] Outpatient Attender: AYAN MOSQUEDA MD 10/26/2019 12:00 :00 AM [facility] Outpatient 09/24/2019 05:38:00 AM EDT [facility] Outpatient Attender: Walker Eid MD 09/14/2019 12:00:00 AM [facility] Outpatient Referrer: Walker Eid MD 09/11/2019 12:00:00 AM [facility] Outpatient Attender: SANTIAGO WILSON [id number] 07/20/2019 04:05:3 2 PM [facility] Outpatient Attender: SANTIAGO WILSON [id number] 07/20/2019 03:56:2 2 PM [facility] Outpatient Attender: Walker Eid MDReferrer: DEBBIE REECE [id number] 07/20/2019 12:00:00 AM EST - 08/24/2019 12:00:00 AM EST Cystic fibrosis, unspecified [facility] Cystic fibrosis, unspecified Outpatient Attender: KANA OWUSU NP 07/14/2019 12:00:00 A M [facility] Outpatient Attender: KANA OWUSU NP [id number] 2018 12:00:00 AM EDT - 05/08/2019 03:23:36 PM EST Cystic fibrosis with pulmonary manifestations [facility] Cystic fibrosis with pulmonary manifesta tions Outpatient Attender: KANA OWUSU NP [id number] 2018 12:00:00 AM EDT - 11/25/2018 01:38:52 PM EDT Cystic fibrosis, unspecified [facility] Cystic fibrosis, unspecified Outpatient Attender: KANA OWUSU NPReferrer: DEBBIE Gregory [id number] 11/18/2018 12:00:00 AM EDT - 11/18/2018 02:38:28 PM EDT Cystic fibrosis, unspecified [facility] Cystic fibrosis, unspecified Immunizations Vaccine Date Status Description Data Source(s) As of February 1999, a 2-dose hepatitis B schedule for adolescents (11-15 year olds) was FDA approved for [employer]'s Recombivax HB adult formulation. Use code 43 for the 2-dose. This code should be used for any use of standard adult formulation of hepatitis B vaccine. 10/29/2019 10:54:00 AM EDT completed eCW1 ([facility]) Medications Medication Brand Name Start Date Product Form Dose Route Admi nistrative Instructions Pharmacy Instructions Status Indications Reaction Description Data Source(s) albuterol (PROVENTIL HFA) inhaler 2 puff 2415-4139-02 02/22/2020 02:45:00 PM EDT 2 {puff} Inhalation completed 2 puff, Inhalation, Once, 02/22/20 at 1445, For 1 dose
Shake the inhaler well before each spray.
[facility] Medication administered onsite 60 ACTUAT Fluticasone propionate 0.5 MG/ ACTUAT / salmeterol 0.05 MG/ACTUAT Dry Powder Inhaler Fluticasone-Salmeterol 500-50 MCG/DOSE Inhalation Aerosol Powder Breath Activated (Advair Diskus) Fluticasone-Salmeterol 500-50 MCG/DOSE Inhalation Aerosol Powder Breath Activated (Advair Diskus) 11/09/2019 12:00:00 AM EDT 1 {puff} Inhalation active Cystic fibrosis Inhale 1 puff into the lungs Two Times Daily [facility] Cystic fibrosis Azithromycin 250 MG Oral Tablet Azithromycin 250 MG Or al Tablet (Zithromax) Azithromycin 250 MG Oral Tablet (Zithromax) 09/14/2019 12:00:00 AM EDT 250 mg Oral active Cystic fibrosis with pulmonary manif estations Take 1 tablet by mouth daily [facility] Cystic fibrosis with pulmonary manifesta tions Dornase Isaak 1 MG/ML Inhalant Solution D ornase Isaak 1 MG/ML Inhalation Solution (PULMOZYME) Dornase Isaak 1 MG/ML Inhalation Solution (PULMOZYME) 0 09/14/2019 12:00:00 AM EDT 2.5 mg Inhalation active Cys tic fibrosis with pulmonary manifestations Inhale 2.5 mg into the lungs daily [facility] Cystic fibrosis with pulmonary manifesta tions Sodium Chloride 1.2 MEQ/ML Inhalant Solu tion Sodium Chloride 7 % Inhalation Nebulization Solution Sodium Chloride 7 % Inhalation Nebulization Solution 09/14/2019 12:00:00 AM EDT 4 mL Nebulization active Cystic fibrosis with pulmonary manifestations Take 4 mLs by nebulization daily [facility] system Cystic fibrosis with pulmonary manifesta tions Tobramycin 60 MG/ML Inhalant Solution To bramycin 300 MG/5ML Inhalation Nebulization Solution (Georgina) Tobramycin 300 MG/5ML Inhalation Nebuliz ation Solution (Georgina) 09/14/2019 12:00:00 AM EDT 300 mg Nebulization active Cystic fibrosis with pulmonary manifestations Take 5 m Ls by nebulization Two Times Daily [facility] Cystic fibrosis with pulmonary manifesta tions MVW Complete Formulation D5000 Oral Capsule [id number] 09/14/2019 12:00:00 AM EDT 2 {capsule} Oral active Cystic fibrosis with pulmonary manifestations Take 2 capsules by mouth daily [facility] Cystic fibrosis with pulmonary manifesta tions Amylases [id number] UNT / Endopeptidases 760 00 UNT / Lipase 55316 UNT Delayed Release Oral Capsule Pancrelipase (Pun-Nldi-Zwad) 50925-90873 UNIT Oral Capsule Delayed Release Particles Pancrelipase (Fjn-Jeto-Ewrm) 20545-54562 UNIT Oral Capsule Delayed Release Particles 09/14/2019 12:00:00 AM EDT Oral active Cystic fibrosis with pulmonary manifestations Take 4 capsules by mouth Three times daily with meals And take 3 capsules with snacks. [facility] Cystic fibrosis with pulmonary manifesta tions Albuterol Sulfate HFA 108 (90 Base) MCG/ ACT Inhalation Aerosol Solution (PROVENTIL HFA;VENTOLIN HFA) 3455-8833-20 09/14/2019 12:00:00 AM EDT 2 {puff} Inhalation active Cystic fibrosis with pulmonary manif estations Inhale 2 puffs into the lungs every 4 (four) hours as needed [facility] Cystic fibrosis with pulmonary manifesta tions Albuterol 0.83 MG/ML Inhalant Solution A lbuterol Sulfate (2.5 MG/3ML) 0.083% Inhalation Nebulization Solution (PROVENTIL) Albuterol Sulfate (2.5 MG/3ML) 0.083% Inhalation Nebulization Solution (PROVENTIL) 09/14/2019 12:00:00 AM EDT 2.5 mg Nebulization active Cystic fibrosis with pulmon drea manifestations Take 3 mLs by nebulization every 4 (four) hours as needed [facility] Cystic fibrosis with pulmonary manifesta tions Lxpnsdts-Pzlduae-Qgigzj&Ivacaf 100-50-75 & 150 MG Oral Tablet Therapy Pack (Trikafta) [id number] 09/14/2019 12:00:00 AM EDT active Cystic fibrosis with pulmonary manifestations Take 2 orange tablets in the morning. Take 1 blue tablet in the evening [facility] Cystic fibrosis with pulmonary manifesta tions Vitamin K 1 5 MG Oral Tablet Phytonadione 5 MG Oral Ta blet (MEPHYTON) Phytonadione 5 MG Oral Tablet (MEPHYTON) 09/14/2019 12:00:00 AM EDT 5 mg Oral active Cystic fibrosis with pulmonary manifestat ions Take 1 tablet by mouth once a week [facility] Cystic fibrosis with pulmonary manifesta tions 60 ACTUAT Fluticasone propionate 0.25 MG /ACTUAT / salmeterol 0.05 MG/ACTUAT Dry Powder Inhaler Fluticasone-Salmeterol 250-50 MCG/DOSE Inhalation Aerosol Powder Breath Activated (Advair Diskus) Fluticasone-Salmeterol 250-50 MCG/DOSE Inhalation Aerosol Powder Breath Activated (Advair Diskus) 09/14/2019 12:00:00 AM EDT 1 {puff} Inhalation aborted Cystic fi brosis with pulmonary manifestations Inhale 1 puff into the lungs Two Times D [facility] Cystic fibrosis with pulmonary manifesta tions albuterol (PROVENTIL HFA;VENTOLIN HFA) inhaler 2 puff [id number] 07/20/2019 03:00:00 PM EST 2 {puff} Inhalation completed 2 puff, Inhalation, Once, Sat07/20/19 at 1500, For 1 dose
Shake the inhaler well before each spray.
[facility] Medication administered onsite 60 ACTUAT Fluticasone propionate 0.25 MG /ACTUAT / salmeterol 0.05 MG/ACTUAT Dry Powder Inhaler Fluticasone-Salmeterol 250-50 MCG/DOSE Inhalation Aerosol Powder Breath Activated (ADVAIR DISKUS) Fluticasone-Salmeterol 250-50 MCG/DOSE Inhalation Aerosol Powder Breath Activated (ADVAIR DISKUS) 07/20/2019 12:00:00 AM EST 1 {puff} Inhalation active CF (cystic fibrosis) Inhale 1 puff into the lungs Two Times Daily [facility] CF (cystic fibrosis) Minocycline 100 MG Oral Capsule Minocycline HCl 100 MG Oral Capsule (MINOCIN) Minocycline HCl 100 MG Oral Capsule (MINOCIN) 07/14/2019 12:00:00 AM EST 100 mg Oral active CF (cystic fibrosis) Take 1 capsule by mouth Two Times Daily [facility] CF (cystic fibrosis) Tobramycin 60 MG/ML Inhalant Solution To bramycin 300 MG/5ML Inhalation Nebulization Solution (GEORGINA) Tobramycin 300 MG/5ML Inhalation Nebuliz ation Solution (GEORGINA) 07/01/2019 12:00:00 AM EST 300 mg Nebulization active Cystic fibrosis with pulmonary manifestations Take 5 m Ls by nebulization Two Times Daily [facility] Cystic fibrosis with pulmonary manifesta tions snzpqvtbfvj-bpugiovege-qawlagzcn and prema caftor 100-50-75 & 150 MG PO per tablet kit [id number] 05/15/2019 12:00:00 AM EST active Cystic fibrosis with pulmonary manifestations Take 2 orange tablets in the morning. Take 1 blue tablet in the evening [facility] Cystic fibrosis with pulmonary manifesta tions 60 ACTUAT Fluticasone propionate 0.25 MG /ACTUAT / salmeterol 0.05 MG/ACTUAT Dry Powder Inhaler Fluticasone-Salmeterol (ADVAIR DISKUS) 250-50 MCG/DOSE AEPB Fluticasone-Salmeterol (ADVAIR DISKUS) 250-50 MCG/DOSE AEPB 02/18/2019 12:00:00 AM EDT 1 {puff} Inhalation aborted CF (cystic fibrosis) Inhale 1 puff into the lungs Two Times Daily [facility] CF (cystic fibrosis) Lidocaine 25 MG/ML / Prilocaine 25 MG/ML Topical Cream lidocaine-prilocaine (EMLA) cream lidocaine-prilocaine (EMLA) cream 02/18/2019 12:00:00 AM EDT aborted Cystic fibrosis with pulmonary manifestat ions Apply 30-60 minutes prior to port access. [facility] Cystic fibrosis with pulmonary manifesta tions FREESTYLE LITE test strip [id number] 08/25/2018 12:00:00 AM EST active Check 2-3 times daily Dx R73.9 [facility] Lancets (FREESTYLE) lancets [id number] 08/25/2018 12:00:00 AM EST active Use as directed. Check 2-3 times daily Dx R73.9 [facility] Insurance Providers Payer name Policy type / Coverage type Policy ID Covered democrat ID Covered democrat's relationship to lau Policy Lau Plan Information U [id number] [facility] [id number] [facility] O [id number] S [id number] [facility] [id number] [facility] [id number] [facility] OFFICE OF VICTIM SERVICES [id number] [facility] [id number] [facility] [id number] [facility] [id number] Self [id number] ANSI-Not a Secondary Insurance [id number] [facility] [id number] [facility] [id number] ANSI-Not a Secondary Insurance [id number] Problems, Conditions, and Diagnoses Code Display Name Description Problem Type Effective Dates Data Source(s) E84.0 Cystic fibrosis with pulmonary manifesta tions Cystic fibrosis with pulmonary manifestations Diagnosis 11/09/2019 11:33:25 AM EDT [facility] 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.19 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 Cystic fibrosis with other intestinal manifestations Diagnosis 08/16/2019 07:49:08 PM EST [facility] Z79.52 prison (current) use of systemic ster oids [place] (current) use of systemic steroids Diagnosis 07/20/2019 02:32:59 PM [facility] Surgeries/Procedures Procedure Description Date Indications Data Source(s) LAB RESULTS (OUTSIDE/HISTORICAL) LAB RESULTS (OUTSIDE/HISTORICA L) 06/27/2020 10:56 AM EST 06/27/2020 10:56:07 AM [facility] SPIROMETRY + PRE & POST BRONCHODILATOR TEST (ALBUTEROL OR XOPENEX) <td><content ID="[id number]">SPIROMETRY + PRE & POST BRONCHODILATOR TEST (ALBUTEROL OR XOPENEX)</content></td><td>Routine</td><td>02/22/2020 2:47 PM EDT</td><td><paragraph>Cystic fibrosis</paragraph></td><td></td> 02/22/2020 02:47:05 PM EDT [facility] Cystic fibrosis REMOTE HOME PFT REMOTE HOME PFT Routine 11/09/2019 1:45 PM E DT Cystic fibrosis Cystic fibrosis with pulmonary manifestations 11/09/2019 05: 45:00 PM EDT Cystic fibrosis with pulmonary manifestationsCystic fibrosis [facility] Cystic fibrosis with pulmonary manifesta tions Cystic fibrosis Hepatitis B Adult 1.0mL (Engerix-B) 10/29/2019 12:00:0 0 AM EDT eCW1 ([facility]) IMMUNIZATION ADMIN 10/29/2019 12:00:00 AM EDT eCW1 ([facility]) SPIROMETRY + PRE & POST BRONCHODILATOR TEST (ALBUTEROL OR XOPENEX) <td><content ID="[id number]">SPIROMETRY + PRE & POST BRONCHODILATOR TEST (ALBUTEROL OR XOPENEX)</content></td><td>Routine</td><td>07/20/2019 2:54 PM EST</td><td><paragraph>CF (cystic fibrosis)</paragraph></td><td></td> 07/20/2019 07:54:13 PM EST CF (cystic fibrosis) [facility] CF (cystic fibrosis) Results ID Date Data Source [id number] 03/05/2020 04:42:25 PM EDT [facility] Name Value Range Interpretation Code Description Data Diane rce(s) Supporting Document(s) Progress Note [employer] [id number] lbm [file] [id number] ID Date Data Source [id number] 02/26/2020 08:32:21 AM EDT [facility] Service Cmnt XXX-Imp : NoneGram Stn XXX : Unable to perform testMicroorganism XXX Cult : 2+Staphylococcus aureus.3+Indigenous microorganisms. Name Value Range Interpretation Code Description Data Diane rce(s) Supporting Document(s) ID Date Data Source [id number] 02/22/2020 03:57:25 PM EDT [facility] Name Value Range Interpretation Code Description Data Diane rce(s) Supporting Document(s) Progress Note [employer] IBGVLv1eUkIKUaMn52/BKJpdDHXpo6UuTCiiNLp3JCffLVFqK8MeFUY5iK4aLOQ8NSwMHlGdIbAnBAWp lbm [file] jxsBXyU2nVv957qZBb4b/JUNIOR ACCOUNTANT BOOKKEEPER/3tMtRTUsP86LBfB4nGGGjj3DwUzzbgC8AlfFHQA0ZKORYyqtBYDRsuq9 [file] u/vp hr diversity/3vu2zyb+G2pumpN5srXUOCXT2MMbgQ/as26br8Njci97jmzXU7/EIddL+Q8L43vl9U8NmgyzxMd [file] OK9ZDp7RVsW1RWR2zBTdRw8PBGm0TLWFBiQcCB8XRIr= ID Date Data Source [id number] 02/22/2020 06:13:18 PM EDT [facility] Name Value Range Interpretation Code Description Data Diane rce(s) Supporting Document(s) Albumin [Mass/volume] in Serum or Plasma by Bromocresol green (BCG) dye binding method 4.8 g/dL 3.5-5.2 [facility] al Bilirubin.total [Mass/volume] in Serum or Plasma 0.6 mg/dL <1.2 [facility] Bilirubin.direct [Mass/volume] in Serum or Plasma <0.3 [facility] Alkaline phosphatase [Enzymatic activity/volume] in Serum or Plasma 77 U/L 35-104 [facility] Aspartate aminotransferase [Enzymatic activity/volume] in Serum or Plasma 21 U/L <32 [facility] Alanine aminotransferase [Enzymatic activity/volume] in Seru m or Plasma 15 U/L <33 [facility] Protein [Mass/volume] in Serum or Plasma 7.5 g/dL 6.4-8.3 [facility] ID Date Data Source [id number] 02/22/2020 03:30:22 PM [facility] Name Value Range Interpretation Code Description Data Diane rce(s) Supporting Document(s) Progress Note [employer] DTMPEx8uPlKABaTz24/APXtdJJKtk6CxBIiqSEr7KMniFXWkV5ErEEX7xR8qDIN6IZxGMuSaInAoHLRv lbm [file] Mx7aVPEHLz9+ZCcobLSkmRugKRRXFvC8VUuiHTuzQOPFEq0I ID Date Data Source [id number] 11/09/2019 10:04:29 PM EDT [facility] Name Value Range Interpretation Code Description Data Diane rce(s) Supporting Document(s) Progress Note [employer] CSBCJg1nEsTNYvBz72/EFMgmBGRps0JdSZajDUw1WDlfWVFrY4KgUZM5vG9xVJQ0PKzLPkDeLrHrAIY0 lbm [file] j7Hdkk82pd1XdzUYj9/lQ1nl0+dVy8Ckz6g8WzT+mobile service rv technician/lFskphXJYmjuhFpqKTtQF2YVxHnXD6dcg8OAU [file] a041uOWh7i/JUNIOR ACCOUNTANT BOOKKEEPER/1kFkNWMgG50EOnY4tXZByv1BsTxq [file] vnqbI65FaWOQp0wBm2Kq/27/Z/2z7yX+hT+6j8qnNDT4lp1HTJUxRl/J5daD11O+6Lp2YLk/vp hr diversity/6nf6e [file] ICAgICAgICAgICAgICAgICAgICAgICAgICAgICAgICAgICAgICAgICAgICAgICAgICAgICAgICAgICAg ICAgICAgICAgICAgICAgICAgICAgICAgICAgICAgICAgICAgICANCiAgICAgICAgICAgICAgICAgICAg ICAgICAgICAgICAgICAgICAgICAgICAgICAgICAgIC AgICAgICAgICAgICAgICAgICAgICAgICAgICAgICAgICAgICAgICAgICAgICAgICANCiAgICAgICAgIC AgICAgICAgICAgICAgICAgICAgICAgICAgICAgICAgICAgICAgICAgICAgICAgICAgICAgICAgICAgIC AgICAgICAgICAgICAgICAgICAgICAgICAgICAgICAN CiAgICAgICAgICAgICAgICAgICAgICAgICAgICAgICAgICAgICAgICAgICAgICAgICAgICAgICAgICAg ICAgICAgICAgICAgICAgICAgICAgICAgICAgICAgICAgICAgICAgICANCiAgICAgICAgICAgICAgICAg ICAgICAgICAgICAgICAgICAgICAgICAgICAgICAgIC AgICAgICAgICAgICAgICAgICAgICAgICAgICAgICAgICAgICAgICAgICAgICAgICAgICANCiAgICAgIC AgICAgICAgICAgICAgICAgICAgICAgICAgICAgICAgICAgICAgICAgICAgICAgICAgICAgICAgICAgIC AgICAgICAgICAgICAgICAgICAgICAgICAgICAgICAg ICANCiAgICAgICAgICAgICAgICAgICAgICAgICAgICAgICAgICAgICAgICAgICAgICAgICAgICAgICAg ICAgICAgICAgICAgICAgICAgICAgICAgICAgICAgICAgICAgICAgICAgICANCiAgICAgICAgICAgICAg ICAgICAgICAgICAgICAgICAgICAgICAgICAgICAgIC AgICAgICAgICAgICAgICAgICAgICAgICAgICAgICAgICAgICAgICAgICAgICAgICAgICAgICANCiAgIC AgICAgICAgICAgICAgICAgICAgICAgICAgICAgICAgICAgICAgICAgICAgICAgICAgICAgICAgICAgIC AgICAgICAgICAgICAgICAgICAgICAgICAgICAgICAg ICAgICANCiAgICAgICAgICAgICAgICAgICAgICAgICAgICAgICAgICAgICAgICAgICAgICAgICAgICAg ICAgICAgICAgICAgICAgICAgICAgICAgICAgICAgICAgICAgICAgICAgICAgICANCjw/aPVkV4hhfOAf seJ4O1trUb9JRk0HDX3wq8UgICQuDYhcxtAvVuiBAv QdREBxMatRGst8CKbiCX6ElUErR1AaQ1DhAQgfSF1MFKFaKWTihAPwXPZsPLYoBfY0JZSrPGlhTV6LkH PeLRktWLSbJUGhSvZkYQUeQDVvPSLuKOSpLATIVQYpMWLqXnLiTFfxPR7Oc9NqsXJ2DXm+Nb0CVO1gg9 IlMGosRVExEJ0fwv3WWHnUBeAiX5UxotG8NFFkFSTi Cu1XRVExBEObySJrJNXdCTBRIhWaA7DmfJ55PPLMOx1+BTzerlGcBnsOFfSfJQJca1AsAQa5XS5UYPGl WFm1hFGaAYIwT0Yey3AtOm82KYIgTxlnC1JpHA7hldTgAu9hdSfaKP3MCVX0NQSvWFcrJhCjWIHrQZg3 HRRMEDzGZrVpA0Cli3RsNfD5PXAfYiTmJInyIRMdCI noRC12lQswYW0QHBPoSMLkRU32KXNhPJOuGv7TYa8THtMaMQ6uir5ZWlNnSMCrYmiKYfy7NRnqXI9HbU UaG7MdpMNzp1qFBzJhA6JHRDL4OGSgWg3VGPPuXtYyFCAdGNpqRJ8qBAWjZHNOpMywznV9VI7RSV8rhk NuBW1TUdSmLu8mQy8IUtPiP4XzT3OfZOZqZVJZEBbs RH1AMFslRC0lRO5Ij9AMtZDzqA8wtv5BUNYaXRYpAqjmub5CEntwI8K1tUugCBVpXtTxKGTBWTquTQ9A MVVjFPH2ENOqPTCdAKUNHjLbZ90aNC7SG3Sue32aPuH8SNWxZeFxPPdaQS75dFtytjWgvRKznBysWL5L Cj4+DQplbmRvYmoNCnhyZWYNCjAgMzMNCjAwMDAwMD VkAUOgYdQ1HdEgIn9WTIZuSLFzFCByCpUxVZMfXDYuHJvbKYSwTPOsPYTaKYAuPKDoBW0UUkLrPAGaXO QuQZyiTBThJHOemp6NFMUoHAKbHUQ7FdHgJHOfXNEvDGnsDSSdJNXoEAC2UNQqJVBqJO2EQuFwPVHnBE W8VWImQPSpNBEgfu3VIMPmJKRyJBdqKFCbYQFcGDEq BAhnEIHjEER5OEB9YWNbVDSjIK9FYmJlCDUoGTV5UaGpUEMnJOZfxi2EVSQcXLDmJFr8PvHgXBMzCROg SZqhRWFvVAAxYbC4XHStNVMbUM6PKvPrLUOhZAP8HoUdSCSbPCImhl4QIOFiXADsHMJ5WxTuIWOnEPUx NMofVBLiXYI4QvL6XNFdBTItNX8WWdVuNXLiJHS6Ge msGGOxVIGoca1GRSWdOFAlFIvaRHSnIJVkZUPwTCgjNNEcKNF0PHK7HGFoTAXqDS3VZaTpBUQsRYN4Gd saQRZeXWYkvt0BPBVuCBYfOnK7DBYnVVRtBDOdSZhwGVVxHDK2CeF7YZWtXSQdLM9FTiVyVWTvLOPkXS TfVMEwPHQjzx4WRIWxLTH8QURaZgNvKWTdPGYqXQbw LQLhLKGwBaN6GAEtHDYaUX5UAjBgBNLeIUEcIVYcVSMhFGQhir8EJJQdBBA1WsPgKCCcVNYyGOKdJDiz CCEzKYBiCTf4RSBqVJVmWJ1GRyMnUTLrAMTdCqXoFJMiYBHjfu9ITBHqTUF2VjE3LSGsYJRvKNGeNWdk RCHqNVDsYFR2FVQiGVVyHK3EApHgILVcKPM8GiZeIG RjLWPfdw2BFOFfITC8BYB3JdFbSQYbMNVmDFzdJELrKSG2HaYaSFWyCBZrUG9OExSvKXjvPGQDHpt1MT ufS3f3MOLgKw7OY6Wzl3LrRrZzTJUPNCgdES6zbkDvVHNhVc5MT5lMNvrfFCH7OrE1T8SqGLHrGCEqKG S5FeY7FQD8MkXzPrN5Bl8hEPBbANfaBWduWxGfDoO9 BSE9OrsxHFSrNzB9HGLgKFIrTjGwDK1XOk5KVoX1QOK5oPFxMz3XJNU4IECNCbRiYP3VSWl= ID Date Data Source HCG SERUM QUALITATIVE 10/29/2019 12:00:00 AM EDT eCW1 ([facility]) Name Value Range Interpretation Code Description Data Diane rce(s) Supporting Document(s) NEGATIVE NEGATIVE HCG, SERUM QUALITATIVE eC W1 ([facility]) ID Date Data Source HEPATITIS B SURFACE ANTIGEN 10/29/2019 12:00:00 AM EDT eCW1 ([facility]) Name Value Range Interpretation Code Description Data Diane rce(s) Supporting Document(s) NEGATIVE NEGATIVE HEPATITIS B SURFACE ANTIG EN eCW1 ([facility]) ID Date Data Source HEPATITIS C ANTIBODY INDEX 10/29/2019 12:00:00 AM EDT eCW1 ( [facility]) Name Value Range Interpretation Code Description Data Diane rce(s) Supporting Document(s) 0.1 <0.8 HEPATITIS C VIRUS KAREEM INDEX eC W1 ([facility]) ID Date Data Source SYPHILIS ANTIBODY (RPR SCREEN) 10/29/2019 12:00:00 AM EDT eC W1 ([facility]) Name Value Range Interpretation Code Description Data Diane rce(s) Supporting Document(s) NONREACTIVE NONREACTIVE SYPHILIS eCW1 ([facility]) ID Date Data Source Comprehensive Metabolic Profile (CMP) 10/29/2019 12:00:00 AM EDT eCW1 ([facility]) Name Value Range Interpretation Code Description Data Diane rce(s) Supporting Document(s) 19 7-18 BLOOD UREA NITROGEN eCW1 ([facility]) 79 70-100 GLUCOSE, FASTING eCW1 ([facility]) > 60.0 >60 GLOMERULAR FILTRATION RATE eCW 1 ([facility]) 0.70 0.55-1.30 CREATININE FOR GFR eCW1 ([facility]) 4.1 3.5-5.1 POTASSIUM SERUM eCW1 ([facility]) 138 136-145 SODIUM LEVEL eCW1 ([facility] 1928[facility]1983) 102 98-107 CHLORIDE LEVEL eCW1 ([facility]) 30 21-32 CARBON DIOXIDE LEVEL eCW1 ([facility]) 9.5 8.5-10.1 CALCIUM LEVEL eCW1 ([facility]) 20 7-37 AST/SGOT eCW1 ([facility]) 34 12-78 ALT/SGPT eCW1 ([facility]) 80 45-117 ALKALINE PHOSPHATASE eCW1 ([facility]) 7.4 6.4-8.2 TOTAL PROTEIN eCW1 ([facility]) 0.6 0.2-1.0 BILIRUBIN,TOTAL eCW1 ([facility]) 3.8 3.2-5.2 ALBUMIN eCW1 ([facility]) 1.06 1.00-1.93 ALBUMIN/GLOBULIN RATIO eCW1 (Count includes the [facility]) ID Date Data Source CHLAMYDIA & GC DNA AMPLIFICAT 10/29/2019 12:00:00 AM EDT eCW 1 ([facility]) Name Value Range Interpretation Code Description Data Diane rce(s) Supporting Document(s) Chlamydia trachomatis rRNA [Presence] in Unspecified specimen by Probe and target amplification method NEGATIVE NEGATIVE CHLAMYDIA DNA AMPLIFICATION eCW1 ([facility]) ID Date Data Source CBC with Differential 10/29/2019 12:00:00 AM EDT eCW1 ([facility]) Name Value Range Interpretation Code Description Data Diane rce(s) Supporting Document(s) 5.5 4.0-10.0 WHITE BLOOD COUNT eCW1 ([facility]) 4.29 4.00-5.40 RED BLOOD COUNT eCW1 ([facility]) 38.8 36.0-47.0 HEMATOCRIT eCW1 ([facility]) 13.5 12.0-15.5 HEMOGLOBIN eCW1 ([facility]) 90.4 80.0-96.0 MEAN CORPUSCULAR VOLUME e CW1 ([facility]) 31.5 27.0-33.0 MEAN CORPUSCULAR HEMOGLOB IN eCW1 ([facility]) 34.8 32.0-36.5 MEAN CORPUSCULAR HGB CONC eCW1 ([facility]) 12.3 11.5-14.5 RED CELL DISTRIBUTION WID TH eCW1 ([facility]) 324 150-450 PLATELET COUNT, AUTOMATED eCW1 ([facility]) 27.6 24.0-44.0 LYMPH % eCW1 ([facility]) 56.1 36.0-66.0 NEUTROPHILS % eCW1 ([facility]) 6.9 0.0-3.0 EOS % eCW1 ([facility]) 7.7 0.0-5.0 MONO % eCW1 ([facility]) 1.3 0.0-1.0 BASO % eCW1 ([facility]) 3.1 1.5-8.5 NEUTROPHILS # eCW1 ([facility]) 0.4 0.0-0.8 MONO # eCW1 ([facility]) 1.5 1.5-5.0 LYMPH # eCW1 ([facility]) 0.1 0.0-0.2 BASO # eCW1 ([facility]) 0.4 0.0-0.5 EOS # eCW1 ([facility]) ID Date Data Source [id number] 08/25/2019 01:12:45 PM [facility] Name Value Range Interpretation Code Description Data Diane rce(s) Supporting Document(s) Progress Note [employer] QGVVMl5yNlCMVdZf48/LFPcjRMKqq8LnNFqtZWo5BQjrJDHoN8NeUAN0fL0cCGF3GPkMWaZiMbJzCpNo lbm [file] RAB4JCYeK2SzZ4Z1Izc9TSEsZlV1R4WsNnMyHaIp EK4FDo3TUxG1AQJ7fIFkQa1KIgp6XNDZWiBnZL5WKGe= ID Date Data Source [id number] 08/25/2019 01:12:39 PM [facility] Name Value Range Interpretation Code Description Data Diane rce(s) Supporting Document(s) Progress Note [employer] MNQEEc9kKaZZCrBu45/TBGfxHMZyh0YgRCyuLNl5VOrpSRMgJ6BbXMX9gV9vFXQ2TXwPHeRsAjAyCzMy lbm RjYbzKOjRdEWMkGotVIeHjODpqPiiagEQrBM4EzQZ0JCRiS75dJPEnWAPbP0ImFIL5BZo+My1DFREfqJ NqWU4SIxsO6WhnWxhKBf++1g2BGg66zcsyxhcJV4PAAtxLHKIZPABUjSWesK3TaaVpAFYI+9dvn26/l+ ABf00xpmBZTem3434Ql+jGcan8G9ZEnqJXXN6z+DO2 SvQvxV//JkyOzDr71rqLFmHfrMJI4fPD9G6cF1/b5eyz8bolqbNMd1HHwQdiE85OAVYfk6uXQ07Zc/5Y MN3uDxH05jB1/+jg+FDoOJbahO9/+kmc/r41MyTyugIFQXIcdogxC0zQW+CNXzdQOTaDzUSFOsE29rBu SYrQ7kuX4daie3Z3soHykbGo+SRD+dXvj3mtgs2Mx9 IfCtIMiaPdIQRYsIm3VnPFsZ2w2MMohzTbT7bCmtyVV6bMWe8rCZ7q+7JHqdDD5BIy9z7cxOK8lvXcBV DOW0oQZQl76X4gYy3vrQV1r2Aonx+dZJwt+DtJP/syeoFydlQsVvKpPUovTkPHgXDGJ7umfqcftoNxJQ K44bQd0O7rUFV0ebPXomGTt6nRsS2DDtC75jFRFdJf WRWAsxyQzX0+LIqdocUR22IjGT3Iq7ZaOgg14Cf1hVPfpSOz1kgnNSQb4R4La3/zmDEgl4m4zG/lsJ6l wGsk4PgN9fuOtR/JB4u2N8RFh+IqK9x/c3wqdo/pDCsC9pMNk9NEChbvKLXMmbvMzEdNYeLTAHPpihFJ 8CKi7dw0onsDu4QiGRJlx+KBxO5Eq0SJGKpBhOqKA2 IFvp+IKmf1Rlfyi890BhJsmmkYmQku8EM44tSr3yQb2Xo0e8wnKCcvBySuvWf7fAThN5KSNrphS+shc/ e4a1iMTCgUdgt5tsku+l9OXwX5eaRMNf32Mp6nRpp+pzqgfiTBvFx0IzO5A71LPzQNwE6STHK/R7Pph/ DnxsbpTsegTlCInIkffsAuprnr4pcC2pbwmgXQG+pi [file] ICAgICAgICAgICAgICAgICAgICAgICAgICAgICAgICAgICAgICAgICAgICAgICAgICAgICAgICAgICAg ICAgICAgICAgICAgICAgICAgICAgICAgICAgICAgIC AgICAgDQogICAgICAgICAgICAgICAgICAgICAgICAgICAgICAgICAgICAgICAgICAgICAgICAgICAgIC AgICAgICAgICAgICAgICAgICAgICAgICAgICAgICAgICAgICAgICAgICAgICAgDQogICAgICAgICAgIC AgICAgICAgICAgICAgICAgICAgICAgICAgICAgICAg ICAgICAgICAgICAgICAgICAgICAgICAgICAgICAgICAgICAgICAgICAgICAgICAgICAgICAgICAgDQog ICAgICAgICAgICAgICAgICAgICAgICAgICAgICAgICAgICAgICAgICAgICAgICAgICAgICAgICAgICAg ICAgICAgICAgICAgICAgICAgICAgICAgICAgICAgIC AgICAgICAgDQogICAgICAgICAgICAgICAgICAgICAgICAgICAgICAgICAgICAgICAgICAgICAgICAgIC AgICAgICAgICAgICAgICAgICAgICAgICAgICAgICAgICAgICAgICAgICAgICAgICAgDQogICAgICAgIC AgICAgICAgICAgICAgICAgICAgICAgICAgICAgICAg ICAgICAgICAgICAgICAgICAgICAgICAgICAgICAgICAgICAgICAgICAgICAgICAgICAgICAgICAgICAg DQogICAgICAgICAgICAgICAgICAgICAgICAgICAgICAgICAgICAgICAgICAgICAgICAgICAgICAgICAg ICAgICAgICAgICAgICAgICAgICAgICAgICAgICAgIC AgICAgICAgICAgDQogICAgICAgICAgICAgICAgICAgICAgICAgICAgICAgICAgICAgICAgICAgICAgIC AgICAgICAgICAgICAgICAgICAgICAgICAgICAgICAgICAgICAgICAgICAgICAgICAgICAgDQogICAgIC AgICAgICAgICAgICAgICAgICAgICAgICAgICAgICAg ICAgICAgICAgICAgICAgICAgICAgICAgICAgICAgICAgICAgICAgICAgICAgICAgICAgICAgICAgICAg ICAgDQogICAgICAgICAgICAgICAgICAgICAgICAgICAgICAgICAgICAgICAgICAgICAgICAgICAgICAg ICAgICAgICAgICAgICAgICAgICAgICAgICAgICAgIC HpJGGnQWGcLAJvQNZkJBf5R2xzSIWqZTQmHD3mGFa4Nh0+EWhWFfBoVJR8ycKuoI6BFE5ah0OmYWrpGC Jma2WvEEh9FS2AKVKiDZweHR4QFRbadg5KDNDcQGKgrYHSa5itRbWbLUR5HPXwSnrlTR8OBDOuK5ocbx QrEAPrEUUCXVrnNBYTACzsJKNDOO1WIwAbB6XpaL62 IDMNCj4+CDwkjqEpUfsRBwR6IHKph6YoITg3XC9EESGpQxvnc7ItGxXmGYONIJczMZ8YPOZ6QRUzXZSf Qo6LMCCoV714grDpLM2IUt0GIbImGI6jfg3WOeMrVKTwLloUQkv8QNzlVN3QzSNzNAuWie5wbzHudwZR u8VwfqXecWSHCO6onoITBAYnvMLhavqxSSUbJNEnFu 03GsQeGVqaDXN1WgUwWX2yNAcxAB8PQNC1SGclUXCsIAIlF0aFWyCsGFO1OhXffNjyLW4ZYpKkE7Dyxo VudCAyOSAwIFINCj4+FRfvemNdYlpOIfAjNRHgf3YdRIi2UD4TNJQiDDiaRB8UFDFidC7tDBcmHZ4XRa ZlRwVeGBUZRnUpV29ldZGzBRe1G9LaGsQkFMZyYgci ZXMgPDwvTmFtZXMgWyBdDQogID4+ID4+GVcgSE0ISGelkvNgLRXwRs4YINIeJIQvQC2xQEUbUZYgK8I4 bVdkQNUALwTaW7lbkegfBL8lJOJzY329eWejonYuFSF3GYAnIw4TEFNeIQQ6PFNgwMLiBzboODRASUtv AO7KcKReBOM7wB2hNPnpSIXgLWFmL2vCUfOfiJotGX 51bGwgbnVsbCBdDQo+Ys4AAM4ru0RgMTb6lbZvWCzqTSRmAOknRJPlUTUiCAGlMIQ9FIE3UMOPPaDmPQ UyJZUgXSpuTOVdZBApzx1NVEZcJFHsNZZgQjXzGWWqGMKbNKneQAHtAHN8XWngCPHhKYYsJA6HVsTkVF ZxMVUhTWdlTARkIUIcdx6EAQGqFYOcKhD3WzYsLCAw AFExRVhaMGYdNQPiSvflXTGvWUEeYH0ACyBwSUIoATAoEBXrUQSlOYMxsy4XPZZwFCQxFeW8MTBoCPFt WRKkDBygMDQpYUC3WjO8GAApRZHqEA0HPdTuJRMoSLg9PfUrGMUuQINxtg0UOZTvXZBvQUB2SLHsZZMu LLSwGPfzXFVdEIQ3ZFa7LSIoPTReNL1UAeNdGEVxHH q7EbUoEXOmZKDdfh0VZTVtQHZpGUyeGDXyNKSlUDVwNUooPXUuNDG8YJRxTDBfBFBuTR5YTyAqLNStBD SsRVnoBQUjGGLqel7VQNOzCWFnHLE2AUHiDKFlNOZqXTerTFCxIKGrBQi5TSQiXEWdSA8FQlNoVUBiNh OvDGOeILRtWRFren7LRRZkMMGgCuLkFfTiUZYwSQKl FLleYUEfOLEfYLg1JYVqNSLbUO2MPeSrMIEkHoS1JzQiYJLrVFKzny5NYBQuPKSuFpUsLnXhXTZwUWSq PSgiPAOuMTSwObnfYWAkORBqGK1INiLwASQkAvG7XlFtPHRkHUIiwo3QVZWhPXPwFVqlPWMtUPBuDWQu FXuaJCKgAEE4VPNzIABeZANyXP3RJkXvDFJiUmG8Uq PcSOPuVDXcjy7OPKWlDDZoSjx3FcLwPHIhVMLcDSxjRMMiCZA7JIM7ZKVfMZKxIR9LSqGcRSNrWbkdBX TmDCJwZXVban2PiURdxJthme8XFWcFJa3HfExfKDHsBCrtBz2mmOQlBEFkKQZTPo2MqzFvREZbEEMFER rbUPZlEPXjLcwdNRFdHzn4AfR1EQotLAQnQCimDHw5 ARYmKJKjHqS7OdH5TIQ5ZPDsClMgBIS5QfDbUDMyHLH2BLQfIwCnOuH+QC2cXFz+Xl9Dk4JpknX6gsOa HBayEsG3Qw9HNHURG7CBZp== ID Date Data Source [id number] 07/27/2019 02:23:07 PM [facility] Name Value Range Interpretation Code Description Data Diane rce(s) Supporting Document(s) Progress Note [employer] CJFRVr7zUuEULcQe86/NEJklGTRay6SrCZejWEn4SKmyYINjO4EpYXX9hH6mALN8KTvYYcIuNbPpUhCf lbm [file] IyTaQyFBU1GgJ2BOCbVwR5PiWhHDM+PF8rSMy+Kb3Yh0JaftY4sgAdVOdzYmT1Md2RGJMHI4YMEg== ID Date Data Source [id number] 07/27/2019 02:22:37 PM [facility] Name Value Range Interpretation Code Description Data Diane rce(s) Supporting Document(s) Progress Note [employer] MZOPCb8nAuYWYtZw16/YJDprNCGpk8ArWGlnRRx3YPakIOGmK8CpXKU8yY0wXDY3OZqWOjHvXiPuWhZt lbm [file] SBUtKGW2YYPmTCFkZ0JoEDV5NbOrMQ6MQp3ESmT9IHL3fWCjWa1MWpS6JQKDUgAnNK9BZBi= ID Date Data Source [id number] 07/21/2019 09:22:51 AM [facility] Name Value Range Interpretation Code Description Data Diane rce(s) Supporting Document(s) Progress Note [employer] FPLLWd8tEzXAWtGw61/KXGopKGYbi3PxBSmoORp7YSgtAAWoC0PcXOU6rB3eGLU5FTkQIsSnWwOnUAH9 lbm [file] L7QqFHP+TR0xWAu+Et6Yf5GpibJ4bfTyMNs8WNS2HK9KIYYTP7KVLc== ID Date Data Source [id number] 09/14/2019 08:13:08 AM EDT [facility] Service Cmnt XXX-Imp : Acid fast Stn XXX : No Acid fast bacilli seen on Fluorochrome stain.Microorganism XXX Cult : No growth (qualifier value) Name Value Range Interpretation Code Description Data Diane rce(s) Supporting Document(s) ID Date Data Source [id number] 07/24/2019 11:59:35 AM EST [facility] Service Cmnt XXX-Imp : Gram Stn XXX : Un able to perform testMicroorganism XXX Cult : 2Burkholderia multivorans (organism)3Normal stephanie Name Value Range Interpretation Code Description Data Diane rce(s) Supporting Document(s) ID Date Data Source [id number] 06/15/2019 11:26:12 AM [facility] Name Value Range Interpretation Code Description Data Diane rce(s) Supporting Document(s) Progress Note [employer] KKBGJy9eJrAIAqEj08/PCNdnPVNzo5YzXGzfZYj5MZziNDXqX9LjXAX1xW6vWST3COvZFqDmZLagAdDj lbm [file] 9GDQo= ID Date Data Source [id number] 06/15/2019 11:24:25 AM EST [facility] Name Value Range Interpretation Code Description Data Diane rce(s) Supporting Document(s) Progress Note [employer] EQUNQd8yHlKVYnEm30/GEFyzQJRnz5PpSHtoAIc7NDchZIEiU0HaUCX9hS0nNGA7IGbQNtYbAIszLnMk lbm [file] 9GDQo= Procedure Social History Code Duration Value Status Description Data Source(s ) Alcohol intake 02/22/2020 12:00:00 AM EDT Current non-d joshua of alcohol (finding) completed Current non-drinker of alcohol (finding) [facility] Tobacco use and exposure 02/22/2020 12:00:00 AM EDT Never used co mpleted Never used [facility] Smoking 02/22/2020 12:00:00 AM EDT Never smoker completed Never [facility] Alcohol intake 11/09/2019 12:00:00 AM EDT Current non-d joshua of alcohol (finding) completed Current non-drinker of alcohol (finding) [facility] Smoking 11/09/2019 12:00:00 AM EDT Never smoker completed Never [facility] Alcohol intake 08/16/2019 12:00:00 AM EST Current non-d joshua of alcohol (finding) completed Current non-drinker of alcohol (finding) [facility] Smoking 08/16/2019 12:00:00 AM EST Never smoker completed Never [facility] Alcohol intake 08/16/2019 12:00:00 AM EST Current non-d joshua of alcohol (finding) completed Current non-drinker of alcohol (finding) [facility] Alcohol intake 07/20/2019 12:00:00 AM EST Current non-d joshua of alcohol (finding) completed Current non-drinker of alcohol (finding) [facility] Smoking 07/20/2019 12:00:00 AM EST Never smoker completed Never [facility] Vital Signs ID Date Data Source UNK Name Value Range Interpretation Code Description Data Source(s) Diastolic blood pressure 58 mm[Hg] 58 mm[Hg] eCW1 ([facility]) Systolic blood pressure 104 mm[Hg] 104 mm[Hg] e CW1 ([facility]) Body temperature 98.2 [degF] 98.2 [degF] eCW1 ( [facility]) Respiratory rate 16 /min 16 /min eCW1 ([facility]) Heart rate 79 /min 79 /min eCW1 ([facility]) Body mass index (BMI) [Ratio] 21.76 kg/m2 21.76 kg/m2 eCW1 ([facility]) Body height 62 [in_us] 62 [in_us] eCW1 ([facility]) Body weight Measured 119 [lb_av] 119 [lb_av] eC W1 ([facility]) ID Date Data Source [id number] 03/05/2020 04:42:25 PM T [facility] Name Value Range Interpretation Code Description Data Source(s) WEIGHT RECORDED 118.25 lb 118.25 lb [facility] Body height Measured 62.13 in 62.13 in [facility] ID Date Data Source [id number] 09/14/2019 08:13:17 AM [facility] Value Range Interpretation Code Description Data Source(s) WEIGHT RECORDED 115.6 lb 115.6 lb [facility] Body height Measured 62.13 in 62.13 in [facility] ID Date Data Source [id number] 06/15/2019 11:26:12 AM [facility] Value Range Interpretation Code Description Data Source(s) WEIGHT RECORDED 113 lb 113 lb [facility] Body height Measured 61.73 in 61.73 in [facility] ID Date Data Source [id number] 08/25/2019 01:12:39 PM [facility] Value Range Interpretation Code Description Data Source(s) WEIGHT RECORDED 112 lb 112 lb [facility] Body height Measured 61.81 in 61.81 in [facility] ID Date Data Source [id number] 08/25/2019 01:12:45 PM [facility] Value Range Interpretation Code Description Data Source(s) WEIGHT RECORDED 113.25 lb 113.25 lb [facility] Body height Measured 62.48 in 62.48 in [facility] Patient Treatment Plan of Care Planned Activity Planned Date Details Description Data Source (s) albuterol (PROVENTIL HFA) inhaler 2 puff 02/22/2020 02:45:00 PM [facility] 60 ACTUAT Fluticasone propionate 0.5 MG/ ACTUAT / salmeterol 0.05 MG/ACTUAT Dry Powder Inhaler 11/09/2019 12:00:00 AM [facility] Jwvfkqhj-Nejyfxb-Wwsjcp&Ivacaf 100-50-75 & 150 MG Oral Tablet Therapy Pack (Trikafta) 09/14/2019 12:00:00 AM [facility] Albuterol 0.83 MG/ML Inhalant Solution 09/14/2019 12:00:00 AM [facility] Albuterol Sulfate HFA 108 (90 Base) MCG/ ACT Inhalation Aerosol Solution (PROVENTIL HFA;VENTOLIN HFA) 09/14/2019 12:00:00 AM [facility] Azithromycin 250 MG Oral Tablet 09/14/2019 12:00:00 AM [facility] Dornase Isaak 1 MG/ML Inhalant Solution 09/14/2019 12:00:00 AM [facility] MVW Complete Formulation D5000 Oral Capsule 09/14/2019 12:00:00 AM [facility] Amylases [id number] UNT / Endopeptidases 760 00 UNT / Lipase 38785 UNT Delayed Release Oral Capsule 09/14/2019 12:00:00 AM [facility] Sodium Chloride 1.2 MEQ/ML Inhalant Solution 09/14/2019 12:00:00 AM [facility] Tobramycin 60 MG/ML Inhalant Solution 09/14/2019 12:00:00 AM [facility] Vitamin K 1 5 MG Oral Tablet 09/14/2019 12:00:00 AM [facility] 60 ACTUAT Fluticasone propionate 0.25 MG /ACTUAT / salmeterol 0.05 MG/ACTUAT Dry Powder Inhaler 09/14/2019 12:00:00 AM [facility] albuterol (PROVENTIL HFA;VENTOLIN HFA) inhaler 2 puff 07/20/2019 03:00:00 PM [facility] 60 ACTUAT Fluticasone propionate 0.25 MG /ACTUAT / salmeterol 0.05 MG/ACTUAT Dry Powder Inhaler 07/20/2019 12:00:00 AM [facility] Minocycline 100 MG Oral Capsule 07/14/2019 12:00:00 AM [facility] Tobramycin 60 MG/ML Inhalant Solution 07/01/2019 12:00:00 AM [facility] boczhkcxknw-kbutuljjaq-skeufraay and prema caftor 100-50-75 & 150 MG PO per tablet kit 05/15/2019 12:00:00 AM [facility] Lidocaine 25 MG/ML / Prilocaine 25 MG/ML Topical Cream 02/18/2019 12:00:00 AM EDT [facility] 60 ACTUAT Fluticasone propionate 0.25 MG /ACTUAT / salmeterol 0.05 MG/ACTUAT Dry Powder Inhaler 02/18/2019 12:00:[address] [facility] Lancets (FREESTYLE) lancets 08/25/2018 12:00:00 AM [facility] FREESTYLE LITE test strip 08/25/2018 12:00:00 AM [facility]
--- OUTSIDE RECORDS SUMMARY | 2020-07-07 17:06 | CCD ---
Author Author [facility] Organization [facility] Address Unknown Phone Unavailable Care Team Providers Care Gas Systems Worker Name Role Phone FEDORS, KANA SPINDLE MAKER Unavailable Unavailable FEDORS, KANA SPINDLE MAKER Unavailable Unavailable FEDORS, KANA SPINDLE MAKER Unavailable Unavailable FEDORS, KANA SPINDLE MAKER Unavailable Unavailable FEDORS, KANA SPINDLE MAKER Unavailable Unavailable FEDORS, KANA SPINDLE MAKER Unavailable Unavailable FEDORS, KANA SPINDLE MAKER Unavailable Unavailable FEDORS, KANA SPINDLE MAKER Unavailable Unavailable FEDORS, KANA SPINDLE MAKER Unavailable Unavailable FEDORS, KANA SPINDLE MAKER Unavailable Unavailable FEDORS, KANA SPINDLE MAKER Unavailable Unavailable FEDORS, KANA SPINDLE MAKER Unavailable Unavailable FEDORS, KANA SPINDLE MAKER Unavailable Unavailable FEDORS, KANA SPINDLE MAKER Unavailable Unavailable FEDORS, KANA SPINDLE MAKER Unavailable Unavailable FEDORS, KANA SPINDLE MAKER Unavailable Unavailable FEDORS, KANA SPINDLE MAKER Unavailable Unavailable FEDORS, KANA SPINDLE MAKER Unavailable Unavailable FEDORS, KANA SPINDLE MAKER Unavailable Unavailable FEDORS, KANA SPINDLE MAKER Unavailable Unavailable Alina WILSON Unavailable Unavailable DEBBIE [...] MD Unavailable Unavailable Eid Sumendra Unavailable Unavailable Eid, Sumendra MD Unavailable Unavailable [...] AYAN VILLALOBOS Unavailable Unavailable JAYLIN, E AYAN IVLLALOBOS Unavailable Unavailable JAYLIN, E AYAN VILLALOBOS Unavailable [...] Unavailable JAYLIN, E AYAN VILLALOBOS Unavailable Unavailable PRISCILA GARCIA Unavailable Unavailable Re-disclosure Warning The records that [...] is protected by Article 27-F of the [facility] Public Health law. If you continue you may have access to information: Regarding HIV / AIDS; Provided by facilities licensed or operated by the [facility] Office of Mental Health; or Provided by the [facility] Office for People With Developmental Disabilities. If such information is present, then the following [facility] mandated warning applies: This information has [...] law may result in a fine or senior living sentence or both. A general authorization for the release of medical or other information is NOT sufficient authorization for further disc losure. Allergies and Adverse Reactions Type Description Substance Reaction Status Data Source(s ) Vancomycin HCl Vancomycin HCl Vancomycin 50 MG/ML Oral Solutio n Hives, trouble breathing Active eC1 ([facility]) Food allergy CUCUMBER-IN FOOD CUCUMBER-IN FOOD [facility] Encounters Encounter Providers Location Date Indications Data Source(s ) Outpatient Attender: Walker Eid MD 07/18/2020 12:00:00 AM [facility] Outpatient Attender: Walker Eid MD 05/17/2020 12:00:00 AM [facility] Outpatient Attender: LANEY CALHOUN MNT [id number] 02/22/2020 03:30:22 P M [facility] Outpatient Attender: KANA OWUSU NPReferrer: DEBBIE Gregory [id number] 02/22/2020 12:00:00 AM EDT - 02/24/2020 08:55:56 AM EDT Cystic fibrosis, [facility] Cystic fibrosis, unspecified Outpatient Attender: PRISCILA GARCIA 02/22/2020 12:00:00 AM [facility] Outpatient Attender: KANA OWUSU NP 02/15/2020 12:00:00 A M [address] [address] 12/29/2019 12:00:00 AM EDT eCW1 ([facility]) Outpatient Referrer: Walker Eid MD 11/23/2019 12:00:00 AM [facility] Outpatient Attender: Walker Eid MDReferrer: DEBBIE REECE [id number] 11/09/2019 12:00:00 AM EDT - 11/09/2019 03:10:54 PM EDT Cystic fibrosis, unspecified [facility] Cystic fibrosis, unspecified [facility] [address] [address] 10/29/2019 12:00:00 AM EDT eCW1 ([facility]) Outpatient Attender: AYAN MOSQUEDA MD 10/28/2019 12:00 :00 AM [facility] Outpatient Attender: AYAN MOSQUEDA MD 10/26/2019 12:00 :00 AM [facility] Outpatient 09/24/2019 05:38:00 AM EDT [facility] Outpatient Attender: Walker Eid MD 09/14/2019 12:00:00 AM [facility] Outpatient Referrer: Walker Eid MD 09/11/2019 12:00:00 AM [facility] Outpatient Attender: SANTIAGO WILSON [id number] 07/20/2019 04:05:3 2 PM [facility] Outpatient Attender: SANTIAGO WILSON [id number] 07/20/2019 03:56:2 2 PM [facility] Outpatient Attender: Walker Eid MDReferrer: DEBBIE REECE [id number] 07/20/2019 12:00:00 AM EST - 08/24/2019 12:00:00 AM EST Cystic fibrosis, unspecified [facility] Cystic fibrosis, unspecified Outpatient Attender: KANA OWUSU NP 07/14/2019 12:00:00 A M [facility] Outpatient Attender: KANA OWUSU NP [id number] 2018 12:00:00 AM EDT - 05/08/2019 03:23:36 PM EST Cystic fibrosis with pulmonary manifestations [facility] Cystic fibrosis with pulmonary manifesta tions Outpatient Attender: KANA OWUSU NP [id number] 2018 12:00:00 AM EDT - 11/25/2018 01:38:52 PM EDT Cystic fibrosis, unspecified [facility] Cystic fibrosis, unspecified Outpatient Attender: KANA OWUSU NPReferrer: DEBBIE Gregory [id number] 11/18/2018 12:00:00 AM EDT - 11/18/2018 02:38:28 PM EDT Cystic fibrosis, unspecified [facility] Cystic fibrosis, unspecified Immunizations Vaccine Date Status Description Data Source(s) As of February 1999, a 2-dose hepatitis B schedule for adolescents (11-15 year olds) was FDA approved for [employer]'s Recombivax HB adult formulation. Use code 43 for the 2-dose. This code should be used for any use of standard adult formulation of hepatitis B vaccine. 10/29/2019 10:54:00 AM EDT completed eCW1 ([facility]) Medications Medication Brand Name Start Date Product Form Dose Route Admi nistrative Instructions Pharmacy Instructions Status Indications Reaction Description Data Source(s) albuterol (PROVENTIL HFA) inhaler 2 puff 8545-6253-82 02/22/2020 02:45:00 PM EDT 2 {puff} Inhalation completed 2 puff, Inhalation, Once, 02/22/20 at 1445, For 1 dose
Shake the inhaler well before each spray.
[facility] Medication administered onsite 60 ACTUAT Fluticasone propionate 0.5 MG/ ACTUAT / salmeterol 0.05 MG/ACTUAT Dry Powder Inhaler Fluticasone-Salmeterol 500-50 MCG/DOSE Inhalation Aerosol Powder Breath Activated (Advair Diskus) Fluticasone-Salmeterol 500-50 MCG/DOSE Inhalation Aerosol Powder Breath Activated (Advair Diskus) 11/09/2019 12:00:00 AM EDT 1 {puff} Inhalation active Cystic fibrosis Inhale 1 puff into the lungs Two Times Daily [facility] Cystic fibrosis Azithromycin 250 MG Oral Tablet Azithromycin 250 MG Or al Tablet (Zithromax) Azithromycin 250 MG Oral Tablet (Zithromax) 09/14/2019 12:00:00 AM EDT 250 mg Oral active Cystic fibrosis with pulmonary manif estations Take 1 tablet by mouth daily [facility] Cystic fibrosis with pulmonary manifesta tions Dornase Isaak 1 MG/ML Inhalant Solution D ornase Isaak 1 MG/ML Inhalation Solution (PULMOZYME) Dornase Isaak 1 MG/ML Inhalation Solution (PULMOZYME) 0 09/14/2019 12:00:00 AM EDT 2.5 mg Inhalation active Cys tic fibrosis with pulmonary manifestations Inhale 2.5 mg into the lungs daily [facility] Cystic fibrosis with pulmonary manifesta tions Sodium Chloride 1.2 MEQ/ML Inhalant Solu tion Sodium Chloride 7 % Inhalation Nebulization Solution Sodium Chloride 7 % Inhalation Nebulization Solution 09/14/2019 12:00:00 AM EDT 4 mL Nebulization active Cystic fibrosis with pulmonary manifestations Take 4 mLs by nebulization daily [facility] Cystic fibrosis with pulmonary manifesta tions Tobramycin 60 MG/ML Inhalant Solution To bramycin 300 MG/5ML Inhalation Nebulization Solution (Georgina) Tobramycin 300 MG/5ML Inhalation Nebuliz ation Solution (Georgina) 09/14/2019 12:00:00 AM EDT 300 mg Nebulization active Cystic fibrosis with pulmonary manifestations Take 5 m Ls by nebulization Two Times Daily [facility] Cystic fibrosis with pulmonary manifesta tions MVW Complete Formulation D5000 Oral Capsule [id number] 09/14/2019 12:00:00 AM EDT 2 {capsule} Oral active Cystic fibrosis with pulmonary manifestations Take 2 capsules by mouth daily [facility] Cystic fibrosis with pulmonary manifesta tions Amylases 872518 UNT / Endopeptidases 760 00 UNT / Lipase 20441 UNT Delayed Release Oral Capsule Pancrelipase (Bex-Wiue-Sogq) 12580-85324 UNIT Oral Capsule Delayed Release Particles Pancrelipase (Zsj-Evgh-Qwwa) 56249-76083 UNIT Oral Capsule Delayed Release Particles 09/14/2019 12:00:00 AM EDT Oral active Cystic fibrosis with pulmonary manifestations Take 4 capsules by mouth Three times daily with meals And take [address] [facility] Cystic fibrosis with pulmonary manifesta tions Albuterol Sulfate HFA 108 (90 Base) MCG/ ACT Inhalation Aerosol Solution (PROVENTIL HFA;VENTOLIN HFA) 7366-9630-12 09/14/2019 12:00:00 AM EDT 2 {puff} Inhalation active Cystic fibrosis with pulmonary manif estations Inhale 2 puffs into the lungs every 4 (four) hours as needed [facility] Cystic fibrosis with pulmonary manifesta tions Albuterol 0.83 MG/ML Inhalant Solution A lbuterol Sulfate (2.5 MG/3ML) 0.083% Inhalation Nebulization Solution (PROVENTIL) Albuterol Sulfate (2.5 MG/3ML) 0.083% Inhalation Nebulization Solution (PROVENTIL) 09/14/2019 12:00:00 AM EDT 2.5 mg Nebulization active Cystic fibrosis with pulmon drea manifestations Take 3 mLs by nebulization every 4 (four) hours as needed [facility] Cystic fibrosis with pulmonary manifesta tions Usiifsft-Znezrwv-Rgbefj&Ivacaf 100-50-75 & 150 MG Oral Tablet Therapy Pack (Trikafta) [id number] 09/14/2019 12:00:00 AM EDT active Cystic fibrosis with pulmonary manifestations Take 2 orange tablets in the morning. Take 1 blue tablet in the evening [facility] Cystic fibrosis with pulmonary manifesta tions Vitamin K 1 5 MG Oral Tablet Phytonadione 5 MG Oral Ta blet (MEPHYTON) Phytonadione 5 MG Oral Tablet (MEPHYTON) 09/14/2019 12:00:00 AM EDT 5 mg Oral active Cystic fibrosis with pulmonary manifestat ions Take 1 tablet by mouth once a week [facility] Cystic fibrosis with pulmonary manifesta [...] puff into the lungs Two Times D [facility] Cystic fibrosis with pulmonary manifesta tions albuterol (PROVENTIL HFA;VENTOLIN HFA) inhaler 2 puff [id number] 07/20/2019 03:00:00 PM EST 2 {puff} Inhalation completed 2 puff, Inhalation, Once, Sat07/20/19 at 1500, For 1 dose
Shake the inhaler well before each spray.
[facility] Medication administered onsite 60 ACTUAT Fluticasone propionate 0.25 MG /ACTUAT / salmeterol 0.05 MG/ACTUAT Dry Powder Inhaler Fluticasone-Salmeterol 250-50 MCG/DOSE Inhalation Aerosol Powder Breath Activated (ADVAIR DISKUS) Fluticasone-Salmeterol 250-50 MCG/DOSE Inhalation Aerosol Powder Breath Activated (ADVAIR DISKUS) 07/20/2019 12:00:00 AM EST 1 {puff} Inhalation active CF (cystic fibrosis) Inhale 1 puff into the lungs Two Times Daily [facility] CF (cystic fibrosis) Minocycline 100 MG Oral Capsule Minocycline HCl 100 MG Oral Capsule (MINOCIN) Minocycline HCl 100 MG Oral Capsule (MINOCIN) 07/14/2019 12:00:00 AM EST 100 mg Oral active CF (cystic fibrosis) Take 1 capsule by mouth Two Times Daily [facility] CF (cystic fibrosis) Tobramycin 60 MG/ML Inhalant Solution To bramycin 300 MG/5ML Inhalation Nebulization Solution (GEORGINA) Tobramycin 300 MG/5ML Inhalation Nebuliz ation Solution (GEORGINA) 07/01/2019 12:00:00 AM EST 300 mg Nebulization active Cystic fibrosis with pulmonary manifestations Take 5 m Ls by nebulization Two Times Daily [facility] Cystic fibrosis with pulmonary manifesta tions dpsygbobndv-irdfvchpiw-eucrqdogi and prema caftor 100-50-75 & 150 MG PO per tablet kit 18569-602-01 05/15/2019 12:00:00 AM EST active Cystic fibrosis with pulmonary manifestations Take 2 orange tablets in the morning. Take 1 blue tablet in the evening [facility] Cystic fibrosis with pulmonary manifesta tions 60 ACTUAT Fluticasone propionate 0.25 MG /ACTUAT / salmeterol 0.05 MG/ACTUAT Dry Powder Inhaler Fluticasone-Salmeterol (ADVAIR DISKUS) 250-50 MCG/DOSE AEPB Fluticasone-Salmeterol (ADVAIR DISKUS) 250-50 MCG/DOSE AEPB 02/18/2019 12:00:00 AM EDT 1 {puff} Inhalation aborted CF (cystic fibrosis) Inhale 1 puff into the lungs Two Times Daily [facility] CF (cystic fibrosis) Lidocaine 25 MG/ML / Prilocaine 25 MG/ML Topical Cream lidocaine-prilocaine (EMLA) cream lidocaine-prilocaine (EMLA) cream 02/18/2019 12:00:00 AM EDT aborted Cystic fibrosis with pulmonary manifestat ions Apply 30-60 minutes prior to port access. [facility] Cystic fibrosis with pulmonary manifesta tions FREESTYLE LITE test strip [id number] 08/25/2018 12:00:00 AM EST active Check 2-3 times daily Dx R73.9 [facility] Lancets (FREESTYLE) lancets [id number] 08/25/2018 12:00:00 AM EST active Use as directed. Check 2-3 times daily Dx R73.9 [facility] Insurance Providers Payer name Policy type / Coverage type Policy ID Covered green party ID Covered green party's relationship to lau Policy Lau Plan Information [facility] [id number] [facility] [id number] [facility] [id number] Self [id number] [facility] [id number] S [id number] [facility] OFFICE OF VICTIM SERVICES [id number] SP [id number] [facility] [id number] [facility] [id number] [facility] [id number] Self [id number] ANSI-Not a Secondary Insurance [id number] [facility] [id number] [facility] [id number] ANSI-Not a Secondary Insurance [id number] [id number] Problems, Conditions, and Diagnoses Code Display Name Description Problem Type Effective Dates Data Source(s) E84.0 Cystic fibrosis with pulmonary manifesta tions Cystic fibrosis with pulmonary manifestations Diagnosis 11/09/2019 11:33:[address] [facility] E84.19 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 Cystic fibrosis with other intestinal manifestations Diagnosis 08/16/2019 07:49:08 PM EST [facility] Z79.52 intermediate (current) use of systemic ster oids intermediate (current) use of systemic steroids Diagnosis 07/20/2019 02:32:59 PM [facility] Surgeries/Procedures Procedure Description Date Indications Data Source(s) LAB RESULTS (OUTSIDE/HISTORICAL) LAB RESULTS (OUTSIDE/HISTORICA L) 06/27/2020 10:56 AM EST 06/27/2020 10:56:07 AM [facility] SPIROMETRY + PRE & POST BRONCHODILATOR TEST (ALBUTEROL OR XOPENEX) <td><content ID="[id number]">SPIROMETRY + PRE & POST BRONCHODILATOR TEST (ALBUTEROL OR XOPENEX)</content></td><td>Routine</td><td>02/22/2020 2:47 PM EDT</td><td><paragraph>Cystic fibrosis</paragraph></td><td></td> 02/22/2020 02:47:[address] [facility] Cystic fibrosis REMOTE HOME PFT REMOTE HOME PFT Routine 11/09/2019 1:45 PM E DT Cystic fibrosis Cystic fibrosis with pulmonary manifestations 11/09/2019 05: 45:00 PM EDT Cystic fibrosis with pulmonary manifestationsCystic fibrosis [facility] Cystic fibrosis with pulmonary manifesta tions Cystic fibrosis Hepatitis B Adult 1.0mL (Engerix-B) 10/29/2019 12:00:0 0 AM EDT eCW1 ([facility]) IMMUNIZATION ADMIN 10/29/2019 12:00:00 AM EDT eCW1 ([facility]) SPIROMETRY + PRE & POST BRONCHODILATOR TEST (ALBUTEROL OR XOPENEX) <td><content ID="[id number]">SPIROMETRY + PRE & POST BRONCHODILATOR TEST (ALBUTEROL OR XOPENEX)</content></td><td>Routine</td><td>07/20/2019 2:54 PM EST</td><td><paragraph>CF (cystic fibrosis)</paragraph></td><td></td> 07/20/2019 07:54:13 PM EST CF (cystic fibrosis) [facility] CF (cystic fibrosis) Results ID Date Data Source [id number] 03/05/2020 04:42:25 PM EDT [facility] Name Value Range Interpretation Code Description Data Diane rce(s) Supporting Document(s) Progress Note [facility] TTAATj5lPvLGRaZb23/LFXapZULkl0AkPHziDLq4WQexFYNsF3WlZQP1uU4kGCW3IDqFKsAuDaObBALa lbm [file] B4YxUlMMRgMMF3UXtxNRFtWDRfLEHaJq1tZWTFGg6+ABfksRDtbEcwVAVCFcO2Cry5EXycIUNVRm6F ID Date Data Source [id number] 02/26/2020 08:32:21 AM EDT [facility] Service Cmnt XXX-Imp : NoneGram Stn XXX : Unable to perform testMicroorganism XXX Cult : 2+Staphylococcus aureus.3+Indigenous microorganisms. Name Value Range Interpretation Code Description Data Diane rce(s) Supporting Document(s) ID Date Data Source [id number] 02/22/2020 03:57:25 PM EDT [facility] Name Value Range Interpretation Code Description Data Diane rce(s) Supporting Document(s) Progress Note [facility] UUNPAh4cIaYBXsHd62/LWFteFWIlu3HeFLteXSs2TYaxAIIdT7IbJDH6gI7fWQH4BRnULzRlBuYdDVLz lbm [file] itbXDsE2wJk124uAOh0q/SPINDLE MAKER/9iQpEICeC77HUgN1rNMGaz7VaJzxogK4AdpKBTW3HMXPDuowTNGRcri9 [file] u/svp operations/3hl9ezs+C6ssikK7ucXCIVRG3HAogP/bw50yk7Qzfl31dsiUY9/EIddL+T9T85ys6W7WossxvHz [file] OO6VJu0XAjH4IUR6gAJwNt5LOHj0ICLKAdYtIJ5TSTq= ID Date Data Source [id number] 02/22/2020 06:13:18 PM T [facility] Name Value Range Interpretation Code Description Data Diane rce(s) Supporting Document(s) Albumin [Mass/volume] in Serum or Plasma by Bromocresol green (BCG) dye binding method 4.8 g/dL 3.5-5.2 [facility] al Bilirubin.total [Mass/volume] in Serum or Plasma 0.6 mg/dL <1.2 [facility] Bilirubin.direct [Mass/volume] in Serum or Plasma <0.3 [facility] Alkaline phosphatase [Enzymatic activity/volume] in Serum or Plasma 77 U/L 35-104 [facility] Aspartate aminotransferase [Enzymatic activity/volume] in Serum or Plasma 21 U/L <32 [facility] Alanine aminotransferase [Enzymatic activity/volume] in Seru m or Plasma 15 U/L <33 [facility] Protein [Mass/volume] in Serum or Plasma 7.5 g/dL 6.4-8.3 [facility] ID Date Data Source [id number] 02/22/2020 03:30:22 PM [facility] Name Value Range Interpretation Code Description Data Diane rce(s) Supporting Document(s) Progress Note [facility] AFJGTb3iGzLSBxRw10/DLMmtOLTqb2QrZLmmTJm7NNegPOFlZ9WcOZQ7eN5oDZF0TTzZLeAoOmJsVTIe lbm [file] Zw9fLRIWJc8+RZqksCDsdDzpUYGUViJ2XKkeMAtaTCGJHu5L ID Date Data Source [id number] 11/09/2019 10:04:29 PM EDT [facility] Name Value Range Interpretation Code Description Data Diane rce(s) Supporting Document(s) Progress Note [facility] GJLEKk8iOeYYJoXh30/CCLzkBRXpl4SzXWgmQHd7ZPswAQLmL6HxVCR2mY3dOKX3CGtCQqRcEzOxGRD4 lbm [file] b8Itxh72lt7CffERg1/lQ1nl0+eMk7Wdc5t0DyQ+regulatory product manager/yArazeZTWseilLatAUkGG7BSpWnUF3iyu4ZSB [file] z610zXBw0m/SPINDLE MAKER/7xIxIEEwN92WXhA5hFDZus8GvRga [file] imjyZ66RpHZCu2vIm0Vx/27/Z/2z7yX+hT+5t7etAZG0xi3CSERrNz/B7lqV49G+0Pm6LUs/svp operations/6nf6e [file] ICAgICAgICAgICAgICAgICAgICAgICAgICAgICAgICAgICAgICAgICAgICAgICAgICAgICAgICAgICAg ICAgICAgICAgICAgICAgICAgICAgICAgICAgICAgICAgICAgICANCiAgICAgICAgICAgICAgICAgICAg ICAgICAgICAgICAgICAgICAgICAgICAgICAgICAgIC AgICAgICAgICAgICAgICAgICAgICAgICAgICAgICAgICAgICAgICAgICAgICAgICANCiAgICAgICAgIC AgICAgICAgICAgICAgICAgICAgICAgICAgICAgICAgICAgICAgICAgICAgICAgICAgICAgICAgICAgIC AgICAgICAgICAgICAgICAgICAgICAgICAgICAgICAN CiAgICAgICAgICAgICAgICAgICAgICAgICAgICAgICAgICAgICAgICAgICAgICAgICAgICAgICAgICAg ICAgICAgICAgICAgICAgICAgICAgICAgICAgICAgICAgICAgICAgICANCiAgICAgICAgICAgICAgICAg ICAgICAgICAgICAgICAgICAgICAgICAgICAgICAgIC AgICAgICAgICAgICAgICAgICAgICAgICAgICAgICAgICAgICAgICAgICAgICAgICAgICANCiAgICAgIC AgICAgICAgICAgICAgICAgICAgICAgICAgICAgICAgICAgICAgICAgICAgICAgICAgICAgICAgICAgIC AgICAgICAgICAgICAgICAgICAgICAgICAgICAgICAg ICANCiAgICAgICAgICAgICAgICAgICAgICAgICAgICAgICAgICAgICAgICAgICAgICAgICAgICAgICAg ICAgICAgICAgICAgICAgICAgICAgICAgICAgICAgICAgICAgICAgICAgICANCiAgICAgICAgICAgICAg ICAgICAgICAgICAgICAgICAgICAgICAgICAgICAgIC AgICAgICAgICAgICAgICAgICAgICAgICAgICAgICAgICAgICAgICAgICAgICAgICAgICAgICANCiAgIC AgICAgICAgICAgICAgICAgICAgICAgICAgICAgICAgICAgICAgICAgICAgICAgICAgICAgICAgICAgIC AgICAgICAgICAgICAgICAgICAgICAgICAgICAgICAg ICAgICANCiAgICAgICAgICAgICAgICAgICAgICAgICAgICAgICAgICAgICAgICAgICAgICAgICAgICAg ICAgICAgICAgICAgICAgICAgICAgICAgICAgICAgICAgICAgICAgICAgICAgICANCjw/oUFsV6agyHUk ydC1U2acEu5VLh8RZG5sw9ReVLMnJNkvbcVtUkcVRq QvUCByWilYJxb5JCwiDU9LlSXzA6NjX2BiIUffBP2GDHJvBQWnlMJiYUXyNTNwTjY0EOKmCXfqCY6OsV FsNZcdOSWgUJClMxBeKNDuPBNeMGZlKQAwHBAQORIyNMHlCiWdCCpwDJ1Ee3UrwAU9NNy+Od6KUP2kb6 HqPDvkZVVcBK3wpr8SEVxDSgEeR4NpfeI6UPMwPWFz Uu4PQRRsBRXwhLAvTQPaOFSKZhKuL7KcsK65QMPNKz2+VBokidZrPzqSUcQjHXZcu4DyLAv9ZW7VAMSx VXb4fMBvLPHvY4Idv7ObXs94KEPrOjjpV0LkXT1gbsKhWu9ozQvdVU5KAGH6KKOkCNdiMwBsRXPxRZh1 LLRHKMjYZpYpE4Uak0AjWdH8VSWkXgTtHOxbWQJvHL fdCZ39mKzsLK3VFBVaBNWfVG72EFTzHJCcJz4PXw1SKrLhUU1fiv1FKuBgEHCgIldWNjq0PDhkXU0ZfU MqB8ZcdLTtz0zRQlJqO6NIRTW7XJJnMc5JBNHcEjSlGGWfUGbrWF1wTPFgWYCQnEozomO8QL5GPJ1xlh LkSE6QQhRrCk6jQg5AKkPjZ9KnQ5WpKRKjXHMZAWuz IA7ZKEnzLJ2sKO5Um7DZmSAjyN0awn6FLGWjOITcRdbwja2ORwxkP4R6jSvgBVHmTxJvNWPJTOfpRF4P OZLfDRB2LTSfHCXtODMTFnVgW29nKM4FC0Zzc93kLtR6VYDbVwPbGVbtUJ04vUasxcLdzBCnoBmvZI1H Cj4+DQplbmRvYmoNCnhyZWYNCjAgMzMNCjAwMDAwMD UpCMOiOfK3XdGaZe6WRLNiIQVlXLEcArJlVERjKCCbKQqdTPSwXKGpMHZzISLdOGNkRY5LDfZpEHTmIA AqQVuwYJPbOOEpja1ABEBtAYRoCNL3BrFzGJWwCPVdQVvgZJMlCAVwHAT4OJOeYSEsJK4XOgMgBPGmOV G9QPIwGOKxIQWicn1VTWCiTEHqOIwySAZcWOBoWMTw MHziXXXeSKN0ANI0WLDdDCWeUX0YYhIsDDYkDUG3DsOnRBErNZZvku2HATFgQYZtCIf4YnKtRISuHSBp HVhpWHYlELFtRdE9DWBoFJIkSN0ONyUeAXReMQJ2JmGtRSAwJXZdmr2JFEYoGSUwPVE7JqRnNWXwIPLq LCppYWEyYPL3NtQ0GMKgSIAmUQ0CBvDtBICzFEH5Fv oqNSYvAPQiel0EUWHsMFUbZEyoRHUrEOKmELVzNDpeJQBrCCF8ZUU9BPUcWLPxOF5CSgGbSHWmELV7Zb vyLMNiYLMzvz3UYROjNVTxNxO7EYWyBORoUJWnKMpvCNNqSZE1SoR5WVOwYXQwOE8ELxAqKHWeIATpWA WzJOIwOLUrzi4LGJFwQCK1HLHvTzOrRYQsRMZlOQnx MFFnWTPoZlQ5VRCfUVIrHW4RCwLiMIEkULCpHUIrNNGsDQFuwy0NVKWbMFP8OhVmNATpOUScDPMgVUwu CIPdXDLvGOi0VLHwHEEzPB5LIaCrPKLqYPYaWaTaEWOkEMNoka8PGMWvCCH3RiJ1MMArCWHtAOWpIWwj MIFaIZPiONP7QORuMCExVE4ZAoPpDJGuZHA0OvRwKV XfYVGaqe2LAGXzRMV9CJB2XdIbSWYiSCCaLPlxCFLzDOP6IqBePICoIUPsSM7CUoLjANkyAOYAOzh5KK plE0v6MCFoPq4PE2Fvo2ZiGkAnZKQDFBwfLH2fhrIpJBYyRf9LK5vWOqxiFAC4XxE6G1DgLWQlRNOyGB X4DhL5KJF6FuAoTzL0Mt7mKIApSKsnOIygIoLzKqQ5 QPT4TmpzGKWoSxJ6QYGzXEXkNcQwER4AFz1BIpS0NQB6qLKxVc0FDXH4QRWPShObGI6WYGr= ID Date Data Source HCG SERUM QUALITATIVE 10/29/2019 12:00:00 AM EDT eCW1 ([facility]) Name Value Range Interpretation Code Description Data Diane rce(s) Supporting Document(s) NEGATIVE NEGATIVE HCG, SERUM QUALITATIVE eC W1 ([facility]) ID Date Data Source HEPATITIS B SURFACE ANTIGEN 10/29/2019 12:00:00 AM EDT eCW1 ([facility]) Name Value Range Interpretation Code Description Data Diane rce(s) Supporting Document(s) NEGATIVE NEGATIVE HEPATITIS B SURFACE ANTIG EN eCW1 ([facility]) ID Date Data Source HEPATITIS C ANTIBODY INDEX 10/29/2019 12:00:00 AM EDT eCW1 ( [facility]) Name Value Range Interpretation Code Description Data Diane rce(s) Supporting Document(s) 0.1 <0.8 HEPATITIS C VIRUS KAREEM INDEX eC W1 ([facility]) ID Date Data Source SYPHILIS ANTIBODY (RPR SCREEN) 10/29/2019 12:00:00 AM EDT eC W1 ([facility]) Name Value Range Interpretation Code Description Data Diane rce(s) Supporting Document(s) NONREACTIVE NONREACTIVE SYPHILIS eCW1 [place] [facility] ID Date Data Source Comprehensive Metabolic Profile (CMP) 10/29/2019 12:00:00 AM EDT eCW1 ([facility]) Name Value Range Interpretation Code Description Data Diane rce(s) Supporting Document(s) 19 7-18 BLOOD UREA NITROGEN eCW1 ([facility]) 79 70-100 GLUCOSE, FASTING eCW1 ([facility]) > 60.0 >60 GLOMERULAR FILTRATION RATE eCW 1 ([facility]) 0.70 0.55-1.30 CREATININE FOR GFR eCW1 ([facility]) 4.1 3.5-5.1 POTASSIUM SERUM eCW1 ([facility]) 138 136-145 SODIUM LEVEL eCW1 ([facility]) 102 98-107 CHLORIDE LEVEL eCW1 ([facility]) 30 21-32 CARBON DIOXIDE LEVEL eCW1 ([facility]) 9.5 8.5-10.1 CALCIUM LEVEL eCW1 ([facility]) 20 7-37 AST/SGOT eCW1 ([facility]) 34 12-78 ALT/SGPT eCW1 ([facility]) 80 45-117 ALKALINE PHOSPHATASE eCW1 ([facility]) 7.4 6.4-8.2 TOTAL PROTEIN eCW1 ([facility]) 0.6 0.2-1.0 BILIRUBIN,TOTAL eCW1 ([facility]) 3.8 3.2-5.2 ALBUMIN eCW1 ([facility]) 1.06 1.00-1.93 ALBUMIN/GLOBULIN RATIO eCW1 ([facility]) ID Date Data Source CHLAMYDIA & GC DNA AMPLIFICAT 10/29/2019 12:00:00 AM EDT eCW 1 ([facility]) Name Value Range Interpretation Code Description Data Diane rce(s) Supporting Document(s) Chlamydia trachomatis rRNA [Presence] in Unspecified specimen by Probe and target amplification method NEGATIVE NEGATIVE CHLAMYDIA DNA AMPLIFICATION eCW1 ([facility]) ID Date Data Source CBC with Differential 10/29/2019 12:00:00 AM EDT eCW1 ([facility]) Name Value Range Interpretation Code Description Data Diane rce(s) Supporting Document(s) 5.5 4.0-10.0 WHITE BLOOD COUNT eCW1 ([facility]) 4.29 4.00-5.40 RED BLOOD COUNT eCW1 ([facility]) 38.8 36.0-47.0 HEMATOCRIT eCW1 ([facility], 1928–1983) 13.5 12.0-15.5 HEMOGLOBIN eCW1 ([facility], 1928[facility]1983) 90.4 80.0-96.0 MEAN CORPUSCULAR VOLUME e CW1 ([facility]) 31.5 27.0-33.0 MEAN CORPUSCULAR HEMOGLOB IN eCW1 ([facility]) 34.8 32.0-36.5 MEAN CORPUSCULAR HGB CONC eCW1 ([facility]) 12.3 11.5-14.5 RED CELL DISTRIBUTION WID TH eCW1 ([facility]) 324 150-450 PLATELET COUNT, AUTOMATED eCW1 ([facility]) 27.6 24.0-44.0 LYMPH % eCW1 ([facility]) 56.1 36.0-66.0 NEUTROPHILS % eCW1 ([facility]) 6.9 0.0-3.0 EOS % eCW1 ([facility]) 7.7 0.0-5.0 MONO % eCW1 ([facility]) 1.3 0.0-1.0 BASO % eCW1 ([facility]) 3.1 1.5-8.5 NEUTROPHILS # eCW1 ([facility]) 0.4 0.0-0.8 MONO # eCW1 ([facility]) 1.5 1.5-5.0 LYMPH # eCW1 ([facility]) 0.1 0.0-0.2 BASO # eCW1 ([facility]) 0.4 0.0-0.5 EOS # eCW1 ([facility]) ID Date Data Source [id number] 08/25/2019 01:12:45 PM [facility] Name Value Range Interpretation Code Description Data Diane rce(s) Supporting Document(s) Progress Note [facility] EJNCCt7fRpWPCuVs32/IOZgyKYQtz1SiCLmjDSo1TSpmKAWuM7QfPTB9hZ0lDEU4VKaBZiUdBwBlUzYs lbm [file] IRM8UAQvE0KsB2O1Qbi1NPJpIiR3S4BhQeZqGfMg DV6FAx3JXnT1CEL3gLYyKf4HZna1UMSCVnIzQI3MMUy= ID Date Data Source [id number] 08/25/2019 01:12:39 PM [facility] Name Value Range Interpretation Code Description Data Diane rce(s) Supporting Document(s) Progress Note [facility] OIGIAq2sNeIJFfRl93/CYTxmSPFzb2WdQVsbMHy9RYugVNUyU0YnMHM6qO7wUGU9UKsDUiLdOaQcVzSh lbm QsCeaAWlVtPILqRcpKXoYgFQmfIyhtrIVaEJ8YqHS4IVKlS75gXIXpDKHnY0PoYDK5ZEg+Ab5BSSOthF HhEQ9LVslH4UqxLawWHk++8o8MIh82kstxprpAS7CDIhoARSZABHGYzOVubS1ClmOyYYVU+9dvn26/l+ XAg99ndhNCEnn0500Us+kUlju6W9HPtuAHHW9i+DO2 SvQvxV//VzsYfVm29qwUFsPuaWWL5eOM4J0mR8/s6amx8yczapCPa3AAqTgbR32QNSHmn5hVH32Gw/5Y LE6tYfI45eM7/+jg+FDoOJbahO9/+kmc/w60ScTkzwSTKGKckxayH0bKV+RNTfaVUApVoVTHIiI85oFv LUvV6emR3abef2S1cgBzfsBf+SRD+pNty6mkyf0Vk8 BrMnFWxsZsBKCUjCx5LrWWyF4a5WFdzmWgT9yArmiPH1oFRm0oCA4g+8UOtpJN8CEh4r4duQB7vaPeEA QSA2rSIXw93X8sMz1bqUT2p7Kfqu+dZJwt+DtJP/gdkpYgrcUnBxOqTHbpAkNPuDPOH9snqfiikeNwLY L19eCa0Y6vWJN1utXRmoVKm2sSrL3NLvS18lMQPfWk WRWAsxyQzX0+BIfrlkUN50LbJF9If1LuZbl97Yp2rSYimWFk2fvsRGDa6T7Ha0/umPPvg2d4rU/lsJ6l uQbx8RlS9nvCvZ/GE4x8U3ZYp+IqK9x/c3wqdo/vTPeA2jJAx2RDOyjwBDINchsXsGcJYyQLZFNdrmGI 7UMz9gh2zkxUj2ArOSQul+RHpH3Om9NJKIbJsVpXL5 IFvp+GDbh4Bdowe330HnMpfsoBzRwq0YS69mCa6dWg2Gn8g7zsUOenJtOfcCg8xFPwD3SZKgkuF+shc/ g9u9wFWFvEttf4igor+t8ALuZ0bzVZYc51Ck8lYva+trquhiZWiQa4JxY0C48STiWKeL6PBAJ/R7Pph/ KckfteCdrbUpWQxWuwvxSrogoz3myZ2sckcdFDU+pi [file] ICAgICAgICAgICAgICAgICAgICAgICAgICAgICAgICAgICAgICAgICAgICAgICAgICAgICAgICAgICAg ICAgICAgICAgICAgICAgICAgICAgICAgICAgICAgIC AgICAgDQogICAgICAgICAgICAgICAgICAgICAgICAgICAgICAgICAgICAgICAgICAgICAgICAgICAgIC AgICAgICAgICAgICAgICAgICAgICAgICAgICAgICAgICAgICAgICAgICAgICAgDQogICAgICAgICAgIC AgICAgICAgICAgICAgICAgICAgICAgICAgICAgICAg ICAgICAgICAgICAgICAgICAgICAgICAgICAgICAgICAgICAgICAgICAgICAgICAgICAgICAgICAgDQog ICAgICAgICAgICAgICAgICAgICAgICAgICAgICAgICAgICAgICAgICAgICAgICAgICAgICAgICAgICAg ICAgICAgICAgICAgICAgICAgICAgICAgICAgICAgIC AgICAgICAgDQogICAgICAgICAgICAgICAgICAgICAgICAgICAgICAgICAgICAgICAgICAgICAgICAgIC AgICAgICAgICAgICAgICAgICAgICAgICAgICAgICAgICAgICAgICAgICAgICAgICAgDQogICAgICAgIC AgICAgICAgICAgICAgICAgICAgICAgICAgICAgICAg ICAgICAgICAgICAgICAgICAgICAgICAgICAgICAgICAgICAgICAgICAgICAgICAgICAgICAgICAgICAg DQogICAgICAgICAgICAgICAgICAgICAgICAgICAgICAgICAgICAgICAgICAgICAgICAgICAgICAgICAg ICAgICAgICAgICAgICAgICAgICAgICAgICAgICAgIC AgICAgICAgICAgDQogICAgICAgICAgICAgICAgICAgICAgICAgICAgICAgICAgICAgICAgICAgICAgIC AgICAgICAgICAgICAgICAgICAgICAgICAgICAgICAgICAgICAgICAgICAgICAgICAgICAgDQogICAgIC AgICAgICAgICAgICAgICAgICAgICAgICAgICAgICAg ICAgICAgICAgICAgICAgICAgICAgICAgICAgICAgICAgICAgICAgICAgICAgICAgICAgICAgICAgICAg ICAgDQogICAgICAgICAgICAgICAgICAgICAgICAgICAgICAgICAgICAgICAgICAgICAgICAgICAgICAg ICAgICAgICAgICAgICAgICAgICAgICAgICAgICAgIC UyUJEfCDNqINTzBXJoVAn3F3cbERKzQCKjQH9oMXo5Mf9+DIoYPwTpZKC6fnUyxG6RBJ8ap9JiFDsuAE Tdb6RlWKm2RU2QMJRhZDxxEU6HKJdzpl1OUXWyVKMczYIRu5czVcQcNOY8MZYlGpbfBX7SIXCsD8cxzl IuXDRsJUECXLorMKFOXNhhXHNZCJ3EGmQwB4JyjG60 IDMNCj4+EKqczxWzGsyXUjC8MJTmo2CqIEu8KU8JCDRcIyuxs9RuYtWlPUXFBKvrNL5KRSB5GUDmRVRq Ct7BLKTrF164fcAgYD0PLq7QCjSuTN5kkw2OXeHoKILmQqxSOux7DJcjMR6ChNIqLEwKrc5xiwYamjCP s7BwveDgmZNZEM8svwZTRKQwnXJdemqqGAYhTNFnAj 91MrFdIZztLVD6OfWiTG1mUJwxIR4OJYE7NNixNVSxFKQtE5gTOhKgSCN6NmYeiLklBG4EEgDuN4Shgc VudCAyOSAwIFINCj4+JNtwaxHxBckUNeTjGYLlr8OgNXn7MP8OMHXcCTbdFU4GUJPyrB7qTLcdPE5YBx MkTiRyEDQGYsTtL53lqATqIKn0D6ObRiSnSETsOcas ZXMgPDwvTmFtZXMgWyBdDQogID4+ID4+AQaaSX7SSAobdfZhJKZwFf1IHAZzZCXsHT6yNLMfOLJnM9N8 qOppSDCOMeJuI9imjliyXE8oDNZzR349tMlepmQrOYY6XDXqNy6LAWWrDAY6FZCwxPKhVevzQEPXBOug ZX2BvDIdYDR7lR7vCEegFAPtDQIaP1qTHyIvjTyyAL 51bGwgbnVsbCBdDQo+Xd0EQS2rs5VvLCf8goQdNSktDCCeCWozXZHeHZRkITSjOQF3XXQ7DVIKOiLtRE RyXYWwJNiyPIJoFGAreu3FEATuHDIiSGNmYaMbSHLbXWRdHZcgKPZzBIP4DLrvHMOlLRIoEV6HAtUsBM YjTPClISexQQHzRBRnxj9JBHGwXJPlKuO6YrYlCKMa NAEfSIiwGBVfHVDkAgcrISVgSRGtNO9CKtAzABQyALSySHSlPAEuQKZgpi1JCXFjLHSeYqR9ANDtITXv VMSeOBuvBQHzFRC7UxC8WBDvSXGpRP8UXtHaZAXaELk7XjWqFWPpDJArwc1LTQLdGGGaKLT0ZDRtEWDa NBYeMTflIQZbTTM7JDi5XMQhKAJrOR8AJzVwBHExWB i9GwMhRBJyWGErqa9YTHQjSIVlPLeaVFJjZMAgZBFwAUanRQLoTWN6TYDgBQEjWLFfWR6FDhRfANUbUV LbTZerWWHaWYJgho9JYLPqFWInUXR7WGWrRAAlFMHvURdgGZVeBTUtCCy3TZRaMHMvUX4DRmXlWLWgNe DfLDSoBKKwZSUmab6ARJOaAQHdWpQtSjZwOUDdERBf SLguYZNdSPFsAIv0JEAhYKBwOW0WNzOxVLJbYnB5MdByEQDiFGLpco9QZUCkMMRuUvGmNxDcYDNrMPCj FQqfWNWxGHHgTbbwNUHzYBJjZN8MJmReMAUtShU1MmAkLIQvMQHxsz6ESANxGEEfSGolSRCzBCGyJRKh FDzlGZPxYZK2BGDeHAQpRABwXO3XJdCuUNVzAgG2Ch FnRCQnGMKeyw7AUYVuYSVdRff6KbWhCCGyQWAhFEctIUOuCIL2CPE2GHJpULOkYQ4HAhCsYTCiCcmeOS FwJLGqGMSssb9XdWFbjUraua7DQHfOIn7HqOloDXZnGKzePf7ukKGwSYAbMBWJVl3BgyCzTYGwYUVKDJ hmZTDvCCUtNpywCHUvMom6TyV8ZQktJBWsEJvfFBs6 ULWdOCCtKpF6JqT6KRN1MKUsGpJeRDL1WsJiUPZaSKO9LYDiNlXgMdH+GH9xIOf+Py7Fa6XwdyU5sfNb PAqqSpQ6Mk7JNUSLQ2RSTk== ID Date Data Source [id number] 07/27/2019 02:23:07 PM [facility] Name Value Range Interpretation Code Description Data Diane rce(s) Supporting Document(s) Progress Note [facility] DWAYAf8dBwEANjQj48/EPAvlGYVvz3BxPBwdIJq2MVdzROXcU7IqZCZ0tM5gFTS9OYpQOxQiMkCuInEb lbm [file] FuTqHjPMI0FbX0BWQuNcI2DvYjJEA+XV2uFRc+Sn9Rp5HjvrK1xdToHIsyKsW9Fs6RYSBVW9LESr== ID Date Data Source [id number] 07/27/2019 02:22:37 PM [facility] Name Value Range Interpretation Code Description Data Diane rce(s) Supporting Document(s) Progress Note [facility] VGSQOa9mPsXAZeRf30/IMJusMBPxo0AbXPbwUIf7MFzjNEYvJ3AjSJU7cE5fKGE9CDvYWuQyRhYnJsSu lbm [file] JHVnLWR6NJKoXYBsG1HcCAZ7FwUiHS2TXr8BWjX1VYL8vCHcNy2HLjP9MNALTsQfGC6GHEy= ID Date Data Source [id number] 07/21/2019 09:22:51 AM [facility] Name Value Range Interpretation Code Description Data Diane rce(s) Supporting Document(s) Progress Note [facility] KNFJMa7jZdQGWzUb79/WHFdcFHBvt3EaOOgwHEc6VBnySVDvD4AvWJK5lR9pKBP1UNsZYmMqRdCeXXP6 lbm [file] G8QmVPI+SH8fZYk+Nu5Ie1RkbkM5iaTmLBg5WDO6LD4CXBASN6TBXy== ID Date Data Source [id number] 09/14/2019 08:13:08 AM EDT [facility] Service Cmnt XXX-Imp : Acid fast Stn XXX : No Acid fast bacilli seen on Fluorochrome stain.Microorganism XXX Cult : No growth (qualifier value) Name Value Range Interpretation Code Description Data Diane rce(s) Supporting Document(s) ID Date Data Source [id number] 07/24/2019 11:59:35 AM EST [facility] Cmnt XXX-Imp : Gram Stn XXX : Un able to perform testMicroorganism XXX Cult : 2Burkholderia multivorans (organism)3Normal stephanie Name Value Range Interpretation Code Description Data Diane rce(s) Supporting Document(s) ID Date Data Source [id number] 06/15/2019 11:26:12 AM [facility] Name Value Range Interpretation Code Description Data Diane rce(s) Supporting Document(s) Progress Note [facility] KJLPEq6gSyBZVbHb96/CLPxwOZOje4DuCTxpHUt1ULxsRDRpG8ChCHW6nG7vOOV2UWcZUvHnLEytYvKy lbm [file] 9GDQo= ID Date Data Source [id number] 06/15/2019 11:24:25 AM EST [facility] Name Value Range Interpretation Code Description Data Diane rce(s) Supporting Document(s) Progress Note [facility] LCDFMq4eMvKCGuFs63/BJLnvEXIux0BbEBtxUTh0WNheZYOcH0UaXIE4iD3jXPM3RCzDUvDxNKrySiTf lbm [file] 9GDQo= Procedure Social History Code Duration Value Status Description Data Source(s ) Alcohol intake 02/22/2020 12:00:00 AM EDT Current non-d joshua of alcohol (finding) completed Current non-drinker of alcohol (finding) [facility] Tobacco use and exposure 02/22/2020 12:00:00 AM EDT Never used co mpleted Never used [facility] Smoking 02/22/2020 12:00:00 AM EDT Never smoker completed Never s [facility] Alcohol intake 11/09/2019 12:00:00 AM EDT Current non-d joshua of alcohol (finding) completed Current non-drinker of alcohol (finding) [facility] Smoking 11/09/2019 12:00:00 AM EDT Never smoker completed Never [facility] Alcohol intake 08/16/2019 12:00:00 AM EST Current non-d joshua of alcohol (finding) completed Current non-drinker of alcohol (finding) [facility] Smoking 08/16/2019 12:00:00 AM EST Never smoker completed Never s [facility] Alcohol intake 08/16/2019 12:00:00 AM EST Current non-d joshua of alcohol (finding) completed Current non-drinker of alcohol (finding) [facility] Alcohol intake 07/20/2019 12:00:00 AM EST Current non-d joshua of alcohol (finding) completed Current non-drinker of alcohol (finding) [facility] Smoking 07/20/2019 12:00:00 AM EST Never smoker completed Never [facility] Vital Signs ID Date Data Source UNK Name Value Range Interpretation Code Description Data Source(s) Diastolic blood pressure 58 mm[Hg] 58 mm[Hg] eCW1 ([facility]) Systolic blood pressure 104 mm[Hg] 104 mm[Hg] e CW1 ([facility]) Body temperature 98.2 [degF] 98.2 [degF] eCW1 ( [facility]) Respiratory rate 16 /min 16 /min eCW1 ([facility]) Heart rate 79 /min 79 /min eCW1 ([facility]) Body mass index (BMI) [Ratio] 21.76 kg/m2 21.76 kg/m2 eCW1 ([facility]) Body height 62 [in_us] 62 [in_us] eCW1 ([facility]) Body weight Measured 119 [lb_av] 119 [lb_av] eC W1 ([facility]) ID Date Data Source [id number] 03/05/2020 04:42:25 PM [facility] Name Value Range Interpretation Code Description Data Source(s) WEIGHT RECORDED 118.25 lb 118.25 lb [facility] Body height Measured 62.13 in 62.13 in [facility] ID Date Data Source [id number] 09/14/2019 08:13:17 AM [facility] Value Range Interpretation Code Description Data Source(s) WEIGHT RECORDED 115.6 lb 115.6 lb [facility] Body height Measured 62.13 in 62.13 in [facility] ID Date Data Source [id number] 06/15/2019 11:26:12 AM [facility] Value Range Interpretation Code Description Data Source(s) WEIGHT RECORDED 113 lb 113 lb [facility] Body height Measured 61.73 in 61.73 in [facility] ID Date Data Source [id number] 08/25/2019 01:12:39 PM [facility] Value Range Interpretation Code Description Data Source(s) WEIGHT RECORDED 112 lb 112 lb [facility] Body height Measured 61.81 in 61.81 in [facility] ID Date Data Source [id number] 08/25/2019 01:12:45 PM [facility] Value Range Interpretation Code Description Data Source(s) WEIGHT RECORDED 113.25 lb 113.25 lb [facility] Body height Measured 62.48 in 62.48 in [facility] Patient Treatment Plan of Care Planned Activity Planned Date Details Description Data Source (s) albuterol (PROVENTIL HFA) inhaler 2 puff 02/22/2020 02:45:00 PM [facility] 60 ACTUAT Fluticasone propionate 0.5 MG/ ACTUAT / salmeterol 0.05 MG/ACTUAT Dry Powder Inhaler 11/09/2019 12:00:00 AM [facility] Bxqxxivb-Fkcfqni-Qyheze&Ivacaf 100-50-75 & 150 MG Oral Tablet Therapy Pack (Trikafta[facility]/ML Inhalant Solution 09/14/2019 12:00:00 AM [facility] Albuterol Sulfate HFA 108 (90 Base) MCG/ ACT Inhalation Aerosol Solution (PROVENTIL HFA;VENTOLIN HFA) 09/14/2019 12:00:00 AM [facility] Azithromycin 250 MG Oral Tablet 09/14/2019 12:00:00 AM [facility] Dornase Isaak 1 MG/ML Inhalant Solution 09/14/2019 12:00:00 AM [facility] MVW Complete Formulation D5000 Oral Capsule 09/14/2019 12:00:00 AM [facility] Amylases 934398 UNT / Endopeptidases 760 00 UNT / Lipase 42781 UNT Delayed Release Oral Capsule 09/14/2019 12:00:00 AM [facility] Sodium Chloride 1.2 MEQ/ML Inhalant Solution 09/14/2019 12:00:00 AM [facility] Tobramycin 60 MG/ML Inhalant Solution 09/14/2019 12:00:00 AM [facility] Vitamin K 1 5 MG Oral Tablet 09/14/2019 12:00:00 AM [facility] 60 ACTUAT Fluticasone propionate 0.25 MG /ACTUAT / salmeterol 0.05 MG/ACTUAT Dry Powder Inhaler 09/14/2019 12:00:00 AM [facility] albuterol (PROVENTIL HFA;VENTOLIN HFA) inhaler 2 puff 07/20/2019 03:00:00 PM [facility] 60 ACTUAT Fluticasone propionate 0.25 MG /ACTUAT / salmeterol 0.05 MG/ACTUAT Dry Powder Inhaler 07/20/2019 12:00:00 AM [facility] Minocycline 100 MG Oral Capsule 07/14/2019 12:00:00 AM [facility] Tobramycin 60 MG/ML Inhalant Solution 07/01/2019 12:00:00 AM [facility] zywosmwiskf-yrgmsuckxe-jctodtjob and prema caftor 100-50-75 & 150 MG PO per tablet kit 05/15/2019 12:00:00 AM [facility] Lidocaine 25 MG/ML / Prilocaine 25 MG/ML Topical Cream 02/18/2019 12:00:00 AM EDT [facility] 60 ACTUAT Fluticasone propionate 0.25 MG /ACTUAT / salmeterol 0.05 MG/ACTUAT Dry Powder Inhaler 02/18/2019 12:00:00 AM EDT [facility] Lancets (FREESTYLE) lancets 08/25/2018 12:00:00 AM [facility] FREESTYLE LITE test strip 08/25/2018 12:00:00 AM [facility]
[2020-07-07] MEDS ORDERED: NS 1,000 ML IV ONE (17:45)
[2020-07-07 18:23] LABS: BASO # 0.1 10^3/uL (0.0-0.2); BASO % 1.3 % (0.0-1.0); EOS # 0.5 10^3/uL (0.0-0.5); EOS % 8.5 % (0.0-3.0); HEMATOCRIT 39.4 % (36.0-47.0); LYMPH # 1.7 10^3/uL (1.5-5.0); LYMPH % 28.4 % (24.0-44.0); MEAN CORPUSCULAR HEMOGLOBIN 30.4 pg (27.0-33.0); MEAN CORPUSCULAR VOLUME 92.1 fl (80.0-96.0); MONO # 0.4 10^3/uL (0.0-0.8); NEUTROPHILS # 3.3 10^3/uL (1.5-8.5); NEUTROPHILS % 54.5 % (36.0-66.0); PLATELET COUNT, AUTOMATED 269 10^3/uL (150-450); RED BLOOD COUNT 4.28 10^6/uL (4.00-5.40); WHITE BLOOD COUNT 6.1 10^3/uL (4.0-10.0)
--- NOTE | 2020-07-07 19:58 | REPVR ---
PROCEDURE INFORMATION: Exam: US Retroperitoneal Limited, Kidneys Exam date and time: 07/07/2020 6:42 PM Age: 25 years old Clinical indication: Abdominal pain; Flank; Right; Additional info: Flank pain, dysuria TECHNIQUE: Imaging protocol: Real-time ultrasound of the retroperitoneum with image documentation. Examination was focused on the kidneys. COMPARISON: CT ABD/PEL W/IV ORAL CONTRAS 10/30/2018 11:53 PM FINDINGS: Right kidney: On the right, medullary pyramids have diffusely increased echogenicity. There is a 1.5 x 1.0 x 1.4 cm echogenic shadowing focus at the right renal pelvis with twinkle artifact, likely a nonobstructing calculus. No calculus was seen in this location on the comparison CT from 10/30/2018., but there was a 0.6 cm calculus in the lower pole of the right kidney on that study. No hydronephrosis or evidence of obstructing calculus. The right kidney measures 10.7 x 5.0 x 3.8 cm. Left kidney: On the left, medullary pyramids have diffusely increased echogenicity. There is a 0.5 x 0.4 x 0.5 cm echogenic shadowing focus with twinkle artifact consistent with a calculus in the mid left kidney which appears new compared to 10/30/2018. No hydronephrosis or evidence of obstructing calculus. The left kidney measures 10.7 x 3.9 x 4.9 cm. Intraperitoneal space: No free fluid. Bladder: Bladder is grossly unremarkable. IMPRESSION: 1. Findings raising the possibility of medullary sponge kidney, with diffusely echogenic medullary pyramids bilaterally. 2. Nonobstructing calculus in each kidney. No hydronephrosis. Electronically signed by: Katherine Curran On 07/07/2020 19:58:23 PM
[2020-07-07] MEDS ORDERED: cefTRIAXone SOD 1 GM in D5W MINI-BAG PLUS 50 ML IV ONE (20:15)
[2020-07-07] MEDS ORDERED: CEFD1CAP8 PO (20:18)
[2020-07-07 20:56] VITALS: BP 111/67
== END 2020-07-07 21:12 | disposition home or self-care (01) ==
LOC: M ED 15:56
DX: N39.0 Urinary tract infection, site not specified (principal); Q61.5 Medullary cystic kidney; N20.0 Calculus of kidney; E84.9 Cystic fibrosis, unspecified; Z79.899 Other long term (current) drug therapy; Z88.1 Allergy status to other antibiotic agents
CPT/HCPCS: 76775; 80047; 81001; 84702; 85025; 87088; 87186; 96361; 96374; 99283; J0696; J1642

== ENCOUNTER 2020-07-14 21:22 | Emergency (ER) | payer MEDICARE, OTHER ==
[~2020-07-14] VITALS: Ht 157.5 cm; Wt 55.8 kg
[~2020-07-14 21:22] MED LIST changes: +CEFD1CAP8 PO
--- OUTSIDE RECORDS SUMMARY | 2020-07-14 21:27 | CCD ---
Author Author [facility] Organization [facility] Address Unknown Phone Unavailable Care Team Providers Care Broadcast Technician Name Role Phone FEDORS, KANA LINE TECHNICIAN Unavailable Unavailable FEDORS, KANA LINE TECHNICIAN Unavailable Unavailable FEDORS, KANA LINE TECHNICIAN Unavailable Unavailable FEDORS, KANA LINE TECHNICIAN Unavailable Unavailable FEDORS, KANA LINE TECHNICIAN Unavailable Unavailable FEDORS, KANA LINE TECHNICIAN Unavailable Unavailable FEDORS, KANA LINE TECHNICIAN Unavailable Unavailable FEDORS, KANA LINE TECHNICIAN Unavailable Unavailable FEDORS, KANA LINE TECHNICIAN Unavailable Unavailable FEDORS, KANA LINE TECHNICIAN Unavailable Unavailable FEDORS, KANA LINE TECHNICIAN Unavailable Unavailable FEDORS, KANA LINE TECHNICIAN Unavailable Unavailable FEDORS, KANA LINE TECHNICIAN Unavailable Unavailable FEDORS, KANA LINE TECHNICIAN Unavailable Unavailable FEDORS, KANA LINE TECHNICIAN Unavailable Unavailable FEDORS, KANA LINE TECHNICIAN Unavailable Unavailable FEDORS, KANA LINE TECHNICIAN Unavailable Unavailable FEDORS, KANA LINE TECHNICIAN Unavailable Unavailable FEDORS, KANA LINE TECHNICIAN Unavailable Unavailable FEDORS, KANA LINE TECHNICIAN Unavailable Unavailable Alina WILSON Unavailable Unavailable DEBBIE [...] Walker Eid MD Unavailable Unavailable Eid Sumendra MD Unavailable [...] Unavailable Unavailable Eid, Sumendra MD Unavailable Unavailable JAYLIN, E AYAN [...] E AYAN VILLALOBOS Unavailable Unavailable JAYLIN, E AYNA VILLALOBOS Unavailable Unavailable JAYLIN, E AYAN VILLALOBOS [...] is protected by Article 27-F of the [facility] Public Health law. If you continue you may have access to information: Regarding HIV / AIDS; Provided by facilities licensed or operated by the [facility] Office of Mental Health; or Provided by the [facility] Office for People With Developmental Disabilities. If such information is present, then the following [facility] mandated warning applies: This information has been [...] law may result in a fine or skilled nursing sentence or both. A general authorization for the release of medical or other information is NOT sufficient authorization for further disc losure. Allergies and Adverse Reactions Type Description Substance Reaction Status Data Source(s ) Vancomycin HCl Vancomycin HCl Vancomycin 50 MG/ML Oral Solutio n Hives, trouble breathing Active eCW1 ([facility]) Food allergy CUCUMBER-IN FOOD CUCUMBER-IN FOOD [facility] Encounters Encounter Providers Location Date Indications Data Source(s ) Outpatient Attender: Walker Eid MD 07/18/2020 12:00:00 AM [facility] Outpatient Attender: Walker Eid MD 05/17/2020 12:00:00 AM [facility] Outpatient Attender: LANEY CALHOUN MNT [id number] 02/22/2020 03:30:22 P M [facility] Outpatient Attender: KANA OWUSU NPReferrer: DEBBIE Gregory 07A-[id number] 02/22/2020 12:00:00 AM EDT - 02/24/2020 08:55:56 AM EDT Cystic fibrosis, [facility] Cystic fibrosis, unspecified Outpatient Attender: PRISCILARANJANA GARCIA 02/22/2020 12:00:00 AM [facility] Outpatient Attender: KANA OWUSU NP 02/15/2020 12:00:[address] [facility] [address] [place] [address], [place] [address] 12/29/2019 12:00:00 AM EDT eCW1 ([facility]) Outpatient Referrer: Walker Eid MD 11/23/2019 12:00:00 AM [facility] Outpatient Attender: Walker Eid MDReferrer: DEBBIE REECE 07A-[id number] 11/09/2019 12:00:00 AM EDT - 11/09/2019 03:10:54 PM EDT Cystic fibrosis, [facility] Cystic fibrosis, unspecified [facility] [address] [facility] [facility] [address] 10/29/2019 12:00:00 AM EDT eCW1 ([facility]) Outpatient Attender: AYAN MOSQUEDA MD 10/28/2019 12:00 :00 AM [facility] Outpatient Attender: AYAN MOSQUEDA MD 10/26/2019 12:00 :00 AM [facility] Outpatient 09/24/2019 05:38:00 AM EDT [facility] Outpatient Attender: Walker Eid MD 09/14/2019 12:00:00 AM [facility] Outpatient Referrer: Walker Eid MD 09/11/2019 12:00:00 AM [facility] Outpatient Attender: SANTIAGO WILSON [id number] 07/20/2019 04:05:3 2 PM [facility] Outpatient Attender: SANTIAGO WILSON [id number] 07/20/2019 03:56:2 2 PM [facility] Outpatient Attender: Walker Eid MDReferrer: DEBBIE REECE [id number] 07/20/2019 12:00:00 AM EST - 08/24/2019 12:00:00 AM EST Cystic fibrosis, unspecified [facility] Cystic fibrosis, unspecified Outpatient Attender: KANA OWUSU NP 07/14/2019 12:00:00 A M [facility] Outpatient Attender: KANA OWUSU NP [id number] 2018 12:00:00 AM EDT - 05/08/2019 03:23:36 PM EST Cystic fibrosis with pulmonary manifestations [facility] Cystic fibrosis with pulmonary manifesta tions Outpatient Attender: KANA OWUSU NP [id number] 2018 12:00:00 AM EDT - 11/25/2018 01:38:52 PM EDT Cystic fibrosis, unspecified [facility] Cystic fibrosis, unspecified Outpatient Attender: KANA OWUSU NPReferrer: DEBBIE Gregory [id number] 11/18/2018 12:00:00 AM EDT - 11/18/2018 02:38:28 PM EDT Cystic fibrosis, unspecified [facility] Cystic fibrosis, unspecified Immunizations Vaccine Date Status Description Data Source(s) As of February 1999, a 2-dose hepatitis B schedule for adolescents (11-15 year olds) was FDA approved for [employer]'s Recombivax HB adult formulation. Use code 43 for the 2-dose. This code should be used for any use of standard adult formulation of hepatitis B vaccine. 10/29/2019 10:54:00 AM EDT completed eCW1 ([facility]) Medications Medication Brand Name Start Date Product Form Dose Route Admi nistrative Instructions Pharmacy Instructions Status Indications Reaction Description Data Source(s) albuterol (PROVENTIL HFA) inhaler 2 puff 4229-0982-79 02/22/2020 02:45:00 PM EDT 2 {puff} Inhalation completed 2 puff, Inhalation, Once, 02/22/20 at 1445, For 1 dose
Shake the inhaler well before each spray.
[facility] Medication administered onsite 60 ACTUAT Fluticasone propionate 0.5 MG/ ACTUAT / salmeterol 0.05 MG/ACTUAT Dry Powder Inhaler Fluticasone-Salmeterol 500-50 MCG/DOSE Inhalation Aerosol Powder Breath Activated (Advair Diskus) Fluticasone-Salmeterol 500-50 MCG/DOSE Inhalation Aerosol Powder Breath Activated (Advair Diskus) 11/09/2019 12:00:00 AM EDT 1 {puff} Inhalation active Cystic fibrosis Inhale 1 puff into the lungs Two Times Daily [facility] Cystic fibrosis Azithromycin 250 MG Oral Tablet Azithromycin 250 MG Or al Tablet (Zithromax) Azithromycin 250 MG Oral Tablet (Zithromax) 09/14/2019 12:00:00 AM EDT 250 mg Oral active Cystic fibrosis with pulmonary manif estations Take 1 tablet by mouth daily [facility] Cystic fibrosis with pulmonary manifesta tions Dornase Isaak 1 MG/ML Inhalant Solution D ornase Isaak 1 MG/ML Inhalation Solution (PULMOZYME) Dornase Isaak 1 MG/ML Inhalation Solution (PULMOZYME) 0 09/14/2019 12:00:00 AM EDT 2.5 mg Inhalation active Cys tic fibrosis with pulmonary manifestations Inhale 2.5 mg into the lungs daily [facility] Cystic fibrosis with pulmonary manifesta tions Sodium Chloride 1.2 MEQ/ML Inhalant Solu tion Sodium Chloride 7 % Inhalation Nebulization Solution Sodium Chloride 7 % Inhalation Nebulization Solution 09/14/2019 12:00:00 AM EDT 4 mL Nebulization active Cystic fibrosis with pulmonary manifestations Take 4 mLs by nebulization daily [facility] Cystic fibrosis with pulmonary manifesta tions Tobramycin 60 MG/ML Inhalant Solution To bramycin 300 MG/5ML Inhalation Nebulization Solution (Georgina) Tobramycin 300 MG/5ML Inhalation Nebuliz ation Solution (Georgina) 09/14/2019 12:00:00 AM EDT 300 mg Nebulization active Cystic fibrosis with pulmonary manifestations Take 5 m Ls by nebulization Two Times Daily [facility] Cystic fibrosis with pulmonary manifesta tions MVW Complete Formulation D5000 Oral Capsule [id number] 09/14/2019 12:00:00 AM EDT 2 {capsule} Oral active Cystic fibrosis with pulmonary manifestations Take 2 capsules by mouth daily [facility] Cystic fibrosis with pulmonary manifesta tions Amylases 889850 UNT / Endopeptidases 760 00 UNT / Lipase 59145 UNT Delayed Release Oral Capsule Pancrelipase (Psb-Gtwi-Ubjs) 37583-74533 UNIT Oral Capsule Delayed Release Particles Pancrelipase (Hjz-Akzm-Mhno) 43559-05608 UNIT Oral Capsule Delayed Release Particles 09/14/2019 12:00:00 AM EDT Oral active Cystic fibrosis with pulmonary manifestations Take 4 capsules by mouth Three times daily with meals And take 3 capsules with snacks. [facility] Cystic fibrosis with pulmonary manifesta tions Albuterol Sulfate HFA 108 (90 Base) MCG/ ACT Inhalation Aerosol Solution (PROVENTIL HFA;VENTOLIN HFA) 2854-1419-14 09/14/2019 12:00:00 AM EDT 2 {puff} Inhalation active Cystic fibrosis with pulmonary manif estations Inhale 2 puffs into the lungs every 4 (four) hours as needed [facility] Cystic fibrosis with pulmonary manifesta tions Albuterol 0.83 MG/ML Inhalant Solution A lbuterol Sulfate (2.5 MG/3ML) 0.083% Inhalation Nebulization Solution (PROVENTIL) Albuterol Sulfate (2.5 MG/3ML) 0.083% Inhalation Nebulization Solution (PROVENTIL) 09/14/2019 12:00:00 AM EDT 2.5 mg Nebulization active Cystic fibrosis with pulmon drea manifestations Take 3 mLs by nebulization every 4 (four) hours as needed [facility] Cystic fibrosis with pulmonary manifesta tions Yxjhbtox-Ocpjkwj-Ctmzkz&Ivacaf 100-50-75 & 150 MG Oral Tablet Therapy Pack (Trikafta) [id number] 09/14/2019 12:00:00 AM EDT active Cystic fibrosis with pulmonary manifestations Take 2 orange tablets in the morning. Take 1 blue tablet in the evening [facility] Cystic fibrosis with pulmonary manifesta tions Vitamin K 1 5 MG Oral Tablet Phytonadione 5 MG Oral Ta blet (MEPHYTON) Phytonadione 5 MG Oral Tablet (MEPHYTON) 09/14/2019 12:00:00 AM EDT 5 mg Oral active Cystic fibrosis with pulmonary manifestat ions Take 1 tablet by mouth once a week [facility] Cystic fibrosis with pulmonary manifesta tions 60 ACTUAT Fluticasone propionate 0.25 MG /ACTUAT / salmeterol 0.05 MG/ACTUAT Dry Powder Inhaler Fluticasone-Salmeterol 250-50 MCG/DOSE Inhalation Aerosol Powder Breath Activated (Advair Diskus) Fluticasone-Salmeterol 250-50 MCG/DOSE Inhalation Aerosol Powder Breath Activated (Advair Diskus) 09/14/2019 12:00:00 AM EDT 1 {puff} Inhalation aborted Cystic fi brosis with pulmonary manifestations Inhale 1 puff into the lungs Two Times D [facility] Cystic fibrosis with pulmonary manifesta tions albuterol (PROVENTIL HFA;VENTOLIN HFA) inhaler 2 puff [id number] 07/20/2019 03:00:00 PM EST 2 {puff} Inhalation completed 2 puff, Inhalation, Once, Sat07/20/19 at 1500, For 1 dose
Shake the inhaler well before each spray.
[facility] Medication administered onsite 60 ACTUAT Fluticasone propionate 0.25 MG /ACTUAT / salmeterol 0.05 MG/ACTUAT Dry Powder Inhaler Fluticasone-Salmeterol 250-50 MCG/DOSE Inhalation Aerosol Powder Breath Activated (ADVAIR DISKUS) Fluticasone-Salmeterol 250-50 MCG/DOSE Inhalation Aerosol Powder Breath Activated (ADVAIR DISKUS) 07/20/2019 12:00:00 AM EST 1 {puff} Inhalation active CF (cystic fibrosis) Inhale 1 puff into the lungs Two Times Daily [facility] CF (cystic fibrosis) Minocycline 100 MG Oral Capsule Minocycline HCl 100 MG Oral Capsule (MINOCIN) Minocycline HCl 100 MG Oral Capsule (MINOCIN) 07/14/2019 12:00:00 AM EST 100 mg Oral active CF (cystic fibrosis) Take 1 capsule by mouth Two Times Daily [facility] CF (cystic fibrosis) Tobramycin 60 MG/ML Inhalant Solution To bramycin 300 MG/5ML Inhalation Nebulization Solution (GEORGINA) Tobramycin 300 MG/5ML Inhalation Nebuliz ation Solution (GEORGINA) 07/01/2019 12:00:00 AM EST 300 mg Nebulization active Cystic fibrosis with pulmonary manifestations Take 5 m Ls by nebulization Two Times Daily [facility] Cystic fibrosis with pulmonary manifesta tions 60 ACTUAT Fluticasone propionate 0.25 MG /ACTUAT / salmeterol 0.05 MG/ACTUAT Dry Powder Inhaler Fluticasone-Salmeterol (ADVAIR DISKUS) 250-50 MCG/DOSE AEPB Fluticasone-Salmeterol (ADVAIR DISKUS) 250-50 MCG/DOSE AEPB 02/18/2019 12:00:00 AM EDT 1 {puff} Inhalation aborted CF (cystic fibrosis) Inhale 1 puff into the lungs Two Times Daily [facility] CF (cystic fibrosis) Lidocaine 25 MG/ML / Prilocaine 25 MG/ML Topical Cream lidocaine-prilocaine (EMLA) cream lidocaine-prilocaine (EMLA) cream 02/18/2019 12:00:00 AM EDT aborted Cystic fibrosis with pulmonary manifestat ions Apply 30-60 minutes prior to port access. [facility] Cystic fibrosis with pulmonary manifesta tions FREESTYLE LITE test strip [id number] 08/25/2018 12:00:00 AM EST active Check 2-3 times daily Dx R73.9 [facility] Lancets (FREESTYLE) lancets [id number] 08/25/2018 12:00:00 AM EST active Use as directed. Check 2-3 times daily Dx R73.9 [facility] Insurance Providers Payer name Policy type / Coverage type Policy ID Covered democrat ID Covered democrat's relationship to lau Policy Lau Plan Information [facility] [id number] [facility] [id number] U [id number] Self [id number] [facility] REG O [id number] S [id number] [facility] OFFICE OF VICTIM SERVICES [id number] [facility] [id number] [facility] [id number] U [id number] Self [id number] ANSI-Not a Secondary Insurance [id number] [facility] [id number] [facility] [id number] ANSI-Not a Secondary Insurance [id number] Problems, Conditions, and Diagnoses Code Display Name Description Problem Type Effective Dates Data Source(s) E84.0 Cystic fibrosis with pulmonary manifesta tions Cystic fibrosis with pulmonary manifestations Diagnosis 11/09/2019 11:33:25 AM EDT [facility] 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.19 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 Cystic fibrosis with other intestinal manifestations Diagnosis 08/16/2019 07:49:08 PM EST [facility] 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) use of systemic steroids Diagnosis 07/20/2019 02:32:59 PM EST [facility] Surgeries/Procedures Procedure Description Date Indications Data Source(s) LAB RESULTS (OUTSIDE/HISTORICAL) LAB RESULTS (OUTSIDE/HISTORICA L) 06/27/2020 10:56 AM EST 06/27/2020 10:56:07 AM EST [facility] SPIROMETRY + PRE & POST BRONCHODILATOR TEST (ALBUTEROL OR XOPENEX) <td><content ID="[id number]">SPIROMETRY + PRE & POST BRONCHODILATOR TEST (ALBUTEROL OR XOPENEX)</content></td><td>Routine</td><td>02/22/2020 2:47 PM EDT</td><td><paragraph>Cystic fibrosis</paragraph></td><td></td> 02/22/2020 02:47:[address] [facility] Cystic fibrosis REMOTE HOME PFT REMOTE HOME PFT Routine 11/09/2019 1:45 PM E DT Cystic fibrosis Cystic fibrosis with pulmonary manifestations 11/09/2019 05: 45:00 PM EDT Cystic fibrosis with pulmonary manifestationsCystic [facility] Cystic fibrosis with pulmonary manifesta tions Cystic fibrosis Hepatitis B Adult 1.0mL (Engerix-B) 10/29/2019 12:00:0 0 AM EDT eCW1 ([facility]) IMMUNIZATION ADMIN 10/29/2019 12:00:00 AM EDT eCW1 ([facility]) SPIROMETRY + PRE & POST BRONCHODILATOR TEST (ALBUTEROL OR XOPENEX) <td><content ID="[id number]">SPIROMETRY + PRE & POST BRONCHODILATOR TEST (ALBUTEROL OR XOPENEX)</content></td><td>Routine</td><td>07/20/2019 2:54 PM EST</td><td><paragraph>CF (cystic fibrosis)</paragraph></td><td></td> 07/20/2019 07:54:13 PM EST CF (cystic fibrosis) [facility] CF (cystic fibrosis) Results ID Date Data Source [id number] 03/05/2020 04:42:25 PM EDT [facility] Name Value Range Interpretation Code Description Data Diane rce(s) Supporting Document(s) Progress Note [facility] MCYHJx2uXrXKDvCm60/OQHqlBQPgp7TlGBlnWUw0BMocUUZeQ5ZwJCK2wB3yBEU2PXhKWxWhNmByBXLe lbm [file] P8AeUkTWNnORR9DPveFZCoPMIzOWAjPx5kSHMJBi2+UHvfbIFnqDgdATTPHoH9Rwe9PGmoANMXQr3P ID Date Data Source [id number] 02/26/2020 08:32:21 AM EDT [facility] Service Cmnt XXX-Imp : NoneGram Stn XXX : Unable to perform testMicroorganism XXX Cult : 2+Staphylococcus aureus.3+Indigenous microorganisms. Name Value Range Interpretation Code Description Data Diane rce(s) Supporting Document(s) ID Date Data Source [id number] 02/22/2020 03:57:25 PM EDT [facility] Name Value Range Interpretation Code Description Data Diane rce(s) Supporting Document(s) Progress Note [facility] AHAWZb0cRlTJGzGl94/BNNhxXVTpn2GyJOjbBGw3ZEbwUKUaP4UgVZH1jI3cTAG1UXyUZqJwHlHqFKIs lbm [file] uwjJFdL3rFs220aFIq6a/LINE TECHNICIAN/6yZqFXXuS52DWeX1sRJOwl6WmJymllQ6GovOGHJ7XYKYByyuALTLozr6 [file] u/svp group director/0nr7fnl+K2usjmA8zuRFLSSM0DUnsY/sb81zc6Ceht79vkcRU5/EIddL+R2U18sh7G9EglginRm [file] EW4KYo1KYcV8NRV3rEOyPd1NIIa4YZQCUvZbTU4EFDa= ID Date Data Source [id number] 02/22/2020 06:13:18 PM [facility] Name Value Range Interpretation Code Description Data Diane rce(s) Supporting Document(s) Albumin [Mass/volume] in Serum or Plasma by Bromocresol green (BCG) dye binding method 4.8 g/dL [facility] Bil[facility].total [Mass/volume] in Serum or Plasma 0.6 mg/dL <1.2 [facility] Bilirubin.direct [Mass/volume] in Serum or Plasma <0.3 [facility] Alkaline phosphatase [Enzymatic activity/volume] in Serum or Plasma 77 U/L 35-104 [facility] Aspartate aminotransferase [Enzymatic activity/volume] in Serum or Plasma 21 U/L <32 [facility] Alanine aminotransferase [Enzymatic activity/volume] in Seru m or Plasma 15 U/L <33 [facility] Protein [Mass/volume] in Serum or Plasma 7.5 g/dL 6.4-8.3 [facility] ID Date Data Source [id number] 02/22/2020 03:30:22 PM [facility] Name Value Range Interpretation Code Description Data Diane rce(s) Supporting Document(s) Progress Note [facility] PSVNEw6vAhEYAlId96/RFXeyFWVig7SoURuzLHw8RSxhAEQvA1MxMVJ4zL9cKPG4EXvEKpCyYyLaKMYz [facility] [file] Yv4oLGWDUz4+NHhibGWpfDshXHHHLuN0AIjyQSihEYJCYe5I ID Date Data Source [id number] 11/09/2019 10:04:29 PM EDT [facility] Name Value Range Interpretation Code Description Data Diane rce(s) Supporting Document(s) Progress Note [facility] PZLUVx1nKiOIErVx32/LSWdyXJByh2TlDShnUBs9DDshJKVzY3ZzZNO4jK0vJSK3DMnJGpIwGqXzIAE7 lbm [file] e036lBMo8q/LINE TECHNICIAN/0cTzRWAvT58OSqX5kQSXlb6IfQez [file] bfliR01RtBPOy5oUp9Yh/27/Z/2z7yX+hT+8y0pzGXG7yo6IINTcNn/U5bjM42Z+6Ly4QOy/svp group director/6nf6e [file] ICAgICAgICAgICAgICAgICAgICAgICAgICAgICAgICAgICAgICAgICAgICAgICAgICAgICAgICAgICAg ICAgICAgICAgICAgICAgICAgICAgICAgICAgICAgICAgICAgICANCiAgICAgICAgICAgICAgICAgICAg ICAgICAgICAgICAgICAgICAgICAgICAgICAgICAgIC AgICAgICAgICAgICAgICAgICAgICAgICAgICAgICAgICAgICAgICAgICAgICAgICANCiAgICAgICAgIC AgICAgICAgICAgICAgICAgICAgICAgICAgICAgICAgICAgICAgICAgICAgICAgICAgICAgICAgICAgIC AgICAgICAgICAgICAgICAgICAgICAgICAgICAgICAN CiAgICAgICAgICAgICAgICAgICAgICAgICAgICAgICAgICAgICAgICAgICAgICAgICAgICAgICAgICAg ICAgICAgICAgICAgICAgICAgICAgICAgICAgICAgICAgICAgICAgICANCiAgICAgICAgICAgICAgICAg ICAgICAgICAgICAgICAgICAgICAgICAgICAgICAgIC AgICAgICAgICAgICAgICAgICAgICAgICAgICAgICAgICAgICAgICAgICAgICAgICAgICANCiAgICAgIC AgICAgICAgICAgICAgICAgICAgICAgICAgICAgICAgICAgICAgICAgICAgICAgICAgICAgICAgICAgIC AgICAgICAgICAgICAgICAgICAgICAgICAgICAgICAg ICANCiAgICAgICAgICAgICAgICAgICAgICAgICAgICAgICAgICAgICAgICAgICAgICAgICAgICAgICAg ICAgICAgICAgICAgICAgICAgICAgICAgICAgICAgICAgICAgICAgICAgICANCiAgICAgICAgICAgICAg ICAgICAgICAgICAgICAgICAgICAgICAgICAgICAgIC AgICAgICAgICAgICAgICAgICAgICAgICAgICAgICAgICAgICAgICAgICAgICAgICAgICAgICANCiAgIC AgICAgICAgICAgICAgICAgICAgICAgICAgICAgICAgICAgICAgICAgICAgICAgICAgICAgICAgICAgIC AgICAgICAgICAgICAgICAgICAgICAgICAgICAgICAg ICAgICANCiAgICAgICAgICAgICAgICAgICAgICAgICAgICAgICAgICAgICAgICAgICAgICAgICAgICAg ICAgICAgICAgICAgICAgICAgICAgICAgICAgICAgICAgICAgICAgICAgICAgICANCjw/rBUsB0gmoQJf ndX3Q2loIt1TPd3CNP8gn5DzKXYrQJzhfpNyLvwLYq DkKQYvSmtAEev4QFowSH0YiCHgM1FoN4VlBBcmRP2VJTMjKUXhmMEnTCUdXYZkVoG5HFNmQDgxWZ7MvQ ZxXCyfYADlRVGyFwAhIZWsEKRiZOMsVSLxAYDEDDBwTGXvKjWoAWerBC4Tm3AvrYI0ZBs+Tl6ITQ5ak1 XgEHfzSTPjJV9gat7EBVxKAkHdD6MdwrU1JBQoRYKh Gk5EDJRxPQDhvNWdWCHqVONUGhJgT0OqlF34UBMKAm4+CAoawdIvWmyYCpWcTAQha3KkAZf3WS0FQBJv ANv7oXGcRWVxC3Tgo6JhHm22BOQgAdepD6WtHI1ameAzDi1obNrhHZ0KINW5QQHvMClvPwIxDHNuGZu1 UPRZCAgXQxRtU1Byw8RiXqF4TZQoVmItKTyeZSBbGZ pqAJ67xDrfDT2FLMItXRJuEX14XVGpHHSpVx1YUx6ULzUeDV2xrd2KCbPkGRLfRnxFRwc1JZufZH2XhY XdY4BapAEki4qTDlOhE9HOBSE0EETvBa7VKPXcSlHhLGNcJFhuCC0ePMAdKSZPaVduwmI9RY6FKZ6uzx YhQZ5LWeQaBy6nKy7OWmQgD7HoA0EpGGUkMWNMIJzo UX9WHBnmHS1uKC9Xl6SAlQJdgS1fje1CWGTeXUHxDhespf7FTeohV0L6kVbjKQTnHjIlTQLIVDdqHR9C TRFyOXH5ZWTzIYBdMLUFChWoG48xSB5FU8Rpj79mXcG3QGMcEcLkGEatKK94xDqgocTslBKbjRbzWE1Q Cj4+DQplbmRvYmoNCnhyZWYNCjAgMzMNCjAwMDAwMD LrFOPdKiN5QqIaBq6SNDEaMBXlQESjMdXkETVcSWLxBHilINKjQSIqRUMvOWIdKRFsLC7SCgZhVHKnOI DnJMjrASWzDRMbba9OXDHpSHZgFSB8YmQfLNTsDACcORbqRSLnLVGxXIA6MBLyKZVhFW2HHwXqPRDfPL Z4TDMxCWSgBTVyzm9XUJVnVFBrVVveQVOwDLFzAUDh VJjoVWVcLCB8FLA9NRFoWEZfXL6FPwTvDGLcFTI4HyAcVWTdWQMxws2PHJAyQMXzRZq4QiUqJWBxZTNp OFxhXMJdVQGnEcV0RLCnFAYhXS2ZXzUrAFAvVQT1UlRdRXClUTEcjq0AUGApXXXwXMK0WbFgZLHsDDDe UTahZIGfIZQ2ZoX3YKCgSTAhGE2LZcRiUXQcUYU6Rm iqUPLbDYWjoe8EQRJvTSJuVMnaGARcWZIzCBIzHHbxMSTiIEM5LLT7AKUbJWGaRQ7IDdCiDLKfLXA7Yn oiAQJqJYLetp0YHZZpAGViPyA9SIKiQNVlDWWnIXgtNOYeCSC1NsD5MYXiSQGnQP8LIfPiIRNdNPSmTQ TvNGQhKIIrqf6FYTDhAYC7JMFpHtCvCEJnGCVrRGgd DACsWXTqJfZ4EAKaKOIpCL0FQxYtVHAsPBOxKSOtHKQvWFVucd5ABIXlVUS9KlPeCTOnFKDbFBFgRVww QMKjHYQyHKg1WGNnCAYsEW6GElHwVBJgESBiZrQkUQOwEASqmc4KMYViVVQ4KxP3DXUpFEYjIPKzIHqw OAXmCPRpEPH8XKYiGMZpQG1RQcUbOEZiTXV5WkNjOM EeFHBarm3QJQAlPVF0YWX0KkDdHIUuOYCpFWpdRXEgUOU0FvFjCZVyFEViOM6WHpFgCVanRIWUOzg3OF qxV4e2CKZnZm2UB0Lrq0HmMsWgBOIPBVfhRQ4lsgNnRYGiEk6NL5qVFgajCAB2BuC3U6ReHKNsBXIoMT X8HcB2FVX7UcAgQtD5Bo3kFGXkHCrrKHpfBtKrVcW0 LXD3YkinTVPjJyY6HUQdQTQtHrUoOC6UDk1DShP3BAA8lJGsCr5LXUH7WXHIOuHmHC3YHKv= ID Date Data Source HCG SERUM QUALITATIVE 10/29/2019 12:00:00 AM EDT eCW1 ([facility]) Name Value Range Interpretation Code Description Data Diane rce(s) Supporting Document(s) NEGATIVE NEGATIVE HCG, SERUM QUALITATIVE eC W1 ([facility]) ID Date Data Source HEPATITIS B SURFACE ANTIGEN 10/29/2019 12:00:00 AM EDT eCW1 ([facility]) Name Value Range Interpretation Code Description Data Diane rce(s) Supporting Document(s) NEGATIVE NEGATIVE HEPATITIS B SURFACE ANTIG EN eCW1 ([facility]) ID Date Data Source HEPATITIS C ANTIBODY INDEX 10/29/2019 12:00:00 AM EDT eCW1 ( [facility]) Name Value Range Interpretation Code Description Data Diane rce(s) Supporting Document(s) 0.1 <0.8 HEPATITIS C VIRUS KAREEM INDEX eC W1 ([facility]) ID Date Data Source SYPHILIS ANTIBODY (RPR SCREEN) 10/29/2019 12:00:00 AM EDT eC W1 ([facility]) Name Value Range Interpretation Code Description Data Diane rce(s) Supporting Document(s) NONREACTIVE NONREACTIVE SYPHILIS eCW1 ([facility]) ID Date Data Source Comprehensive Metabolic Profile (CMP) 10/29/2019 12:00:00 AM EDT eCW1 ([facility]) Name Value Range Interpretation Code Description Data Diane rce(s) Supporting Document(s) 19 7-18 BLOOD UREA NITROGEN eCW1 ([facility]) 79 70-100 GLUCOSE, FASTING eCW1 ([facility], 1928–1983) > 60.0 >60 GLOMERULAR FILTRATION RATE eCW 1 ([facility]) 0.70 0.55-1.30 CREATININE FOR GFR eCW1 ([facility]) 4.1 3.5-5.1 POTASSIUM SERUM eCW1 (Count includes the [place] [facility]) [phone] SODIUM LEVEL eCW1 ([facility] hospital) 102 98-107 CHLORIDE LEVEL eCW1 ([facility]) 30 21-32 CARBON DIOXIDE LEVEL eCW1 ([facility]) 9.5 8.5-10.1 CALCIUM LEVEL eCW1 ([facility]) 20 7-37 AST/SGOT eCW1 ([facility]) 34 12-78 ALT/SGPT eCW1 ([facility]) 80 45-117 ALKALINE PHOSPHATASE eCW1 ([facility]) 7.4 6.4-8.2 TOTAL PROTEIN eCW1 ([facility]) 0.6 0.2-1.0 BILIRUBIN,TOTAL eCW1 (Count includes the [facility]) 3.8 3.2-5.2 ALBUMIN eCW1 ([facility]) 1.06 1.00-1.93 ALBUMIN/GLOBULIN RATIO eCW1 ([facility]) ID Date Data Source CHLAMYDIA & GC DNA AMPLIFICAT 10/29/2019 12:00:00 AM EDT eCW 1 ([facility]) Name Value Range Interpretation Code Description Data Diane rce(s) Supporting Document(s) Chlamydia trachomatis rRNA [Presence] in Unspecified specimen by Probe and target amplification method NEGATIVE NEGATIVE CHLAMYDIA DNA AMPLIFICATION eCW1 ([facility]) ID Date Data Source CBC with Differential 10/29/2019 12:00:00 AM EDT eCW1 ([facility]) Name Value Range Interpretation Code Description Data Diane rce(s) Supporting Document(s) 5.5 4.0-10.0 WHITE BLOOD COUNT eCW1 ([facility]) 4.29 4.00-5.40 RED BLOOD COUNT eCW1 (Count includes the [facility]) 38.8 36.0-47.0 HEMATOCRIT eCW1 ([facility]) 13.5 12.0-15.5 HEMOGLOBIN eCW1 ([facility]) 90.4 80.0-96.0 MEAN CORPUSCULAR VOLUME e CW1 ([facility]) 31.5 27.0-33.0 MEAN CORPUSCULAR HEMOGLOB IN eCW1 ([facility]) 34.8 32.0-36.5 MEAN CORPUSCULAR HGB CONC eCW1 ([facility]) 12.3 11.5-14.5 RED CELL DISTRIBUTION WID TH eCW1 ([facility]) 324 150-450 PLATELET COUNT, AUTOMATED eCW1 ([facility]) 27.6 24.0-44.0 LYMPH % eCW1 ([facility]) 56.1 36.0-66.0 NEUTROPHILS % eCW1 ([facility]) 6.9 0.0-3.0 EOS % eCW1 ([facility]) 7.7 0.0-5.0 MONO % eCW1 ([facility]) 1.3 0.0-1.0 BASO % eCW1 ([facility]) 3.1 1.5-8.5 NEUTROPHILS # eCW1 ([facility]) 0.4 0.0-0.8 MONO # eCW1 ([facility]) 1.5 1.5-5.0 LYMPH # eCW1 ([facility]) 0.1 0.0-0.2 BASO # eCW1 ([facility]) 0.4 0.0-0.5 EOS # eCW1 ([facility]) ID Date Data Source [id number] 08/25/2019 01:12:45 PM [facility] Name Value Range Interpretation Code Description Data Diane rce(s) Supporting Document(s) Progress Note [facility] FFDRTy1qTkICTkMh86/GSImjSNVva8WyUOwpTYm8MQhkJTEuO1YfKXT2wN5oMLY3HIiCMdJdJrAiXjMw lbm [file] DUZ1DQKuI1LoT6Q1Ryx3PSJmKtL3Y7YcHzYnQwWa BW0ZWl9ATjK0BQU4uGBbVc2OFtk7EZCQNjXkUJ2TISo= ID Date Data Source [id number] 08/25/2019:12:39 PM [facility] Name Value Range Interpretation Code Description Data Diane rce(s) Supporting Document(s) Progress Note [facility] FLFMJl4iEbVEVgZq13/SNKeyXXBvq7UpMGapBKg4ABkqKHCsD5KyIDU2oW3gNDV3YKyXRiEtPaOaXbKw lbm DzLtlJTiYbATOgDgeLXrVrISsuUoxqfGVcTS4GnPH0BLGuM34sNYLpGKOuS8DaWHM8EGx+Wm2DKGKloK PiNE0UVjyG7BxxLpaQOh++2s3DCk35eomqtgtBZ0FGRoyFFBZBESHIpECqkX5NivStTNET+9dvn26/l+ VTa43qcqMGQzs6974Ib+tDsye2N8YCcnIULD5x+DO2 SvQvxV//RwoRjCf42qjNCzHtrKLZ6rKE9E3dQ7/d9pxt9rnmsaTLa3LQbIgxD89TMJBgu6xNK62Sl/5Y NH3qVuR67uA8/+jg+FDoOJbahO9/+kmc/l89FxXaqfYRLZFoxwzvN3qRA+TAClqAQTaZgZFXKuK18tXu MVcA5yvM6fshm8U0tiBnnaFx+SRD+dOgx7lnmj0Ee5 SjZaQAikZbFUWUtTb7UsTZsI2q9ZNnyqBbS6cDqsqFU8zFCs6hNM4o+3LHibGY0ITi1i7mxRJ2zmZeAJ QWX7tONLc15W5xKz6ocAS9b0Hzvg+dZJwt+DtJP/tjdhDgwjKbXoTbWSsgOwGYvCTOQ2jktxbsumBoOF U83oOv1H3yPNZ1vzEGvrLBg8dLsW5YNyC33xLSBoHn WRWAsxyQzX0+ECwbwoMM41VmAR4Cz8GgJcd83Bt1uIXdmMYy6efhVZTa6F1Oe0/tjQPxa8z7wI/lsJ6l eXmv5BmV2iqXlF/ZD0u2L5NKd+IqK9x/c3wqdo/cZAzR0xIKr2IAUylcYXTTslvThGpWOmFXQUQxpjLH 3AOx1sp5fruJy5AjEMZcg+LNrG0Ox5SNPLfMoIvUF1 IFvp+DSqs8Tysch060SzZupiqTyEmz6UX79hZn5pYz9Vz0x5tpRNgmAuNkuEa2dDLqR3OYHxohA+shc/ i9o8fBOPwQimm9sfgy+f7QIbA1fiRHHq98Nz2lMwz+uineatAKdRq8FaY4E88EKuIUkM0OCOK/R7Pph/ UkqzqhErvfApFXwCqovnQknywh2xnI7rsebfWRC+pi [file] ICAgICAgICAgICAgICAgICAgICAgICAgICAgICAgICAgICAgICAgICAgICAgICAgICAgICAgICAgICAg ICAgICAgICAgICAgICAgICAgICAgICAgICAgICAgIC AgICAgDQogICAgICAgICAgICAgICAgICAgICAgICAgICAgICAgICAgICAgICAgICAgICAgICAgICAgIC AgICAgICAgICAgICAgICAgICAgICAgICAgICAgICAgICAgICAgICAgICAgICAgDQogICAgICAgICAgIC AgICAgICAgICAgICAgICAgICAgICAgICAgICAgICAg ICAgICAgICAgICAgICAgICAgICAgICAgICAgICAgICAgICAgICAgICAgICAgICAgICAgICAgICAgDQog ICAgICAgICAgICAgICAgICAgICAgICAgICAgICAgICAgICAgICAgICAgICAgICAgICAgICAgICAgICAg ICAgICAgICAgICAgICAgICAgICAgICAgICAgICAgIC AgICAgICAgDQogICAgICAgICAgICAgICAgICAgICAgICAgICAgICAgICAgICAgICAgICAgICAgICAgIC AgICAgICAgICAgICAgICAgICAgICAgICAgICAgICAgICAgICAgICAgICAgICAgICAgDQogICAgICAgIC AgICAgICAgICAgICAgICAgICAgICAgICAgICAgICAg ICAgICAgICAgICAgICAgICAgICAgICAgICAgICAgICAgICAgICAgICAgICAgICAgICAgICAgICAgICAg DQogICAgICAgICAgICAgICAgICAgICAgICAgICAgICAgICAgICAgICAgICAgICAgICAgICAgICAgICAg ICAgICAgICAgICAgICAgICAgICAgICAgICAgICAgIC AgICAgICAgICAgDQogICAgICAgICAgICAgICAgICAgICAgICAgICAgICAgICAgICAgICAgICAgICAgIC AgICAgICAgICAgICAgICAgICAgICAgICAgICAgICAgICAgICAgICAgICAgICAgICAgICAgDQogICAgIC AgICAgICAgICAgICAgICAgICAgICAgICAgICAgICAg ICAgICAgICAgICAgICAgICAgICAgICAgICAgICAgICAgICAgICAgICAgICAgICAgICAgICAgICAgICAg ICAgDQogICAgICAgICAgICAgICAgICAgICAgICAgICAgICAgICAgICAgICAgICAgICAgICAgICAgICAg ICAgICAgICAgICAgICAgICAgICAgICAgICAgICAgIC GbVELzGBCzPKXwGPFtEQd0Z2oeNACuRJDbQK2yEBy5Cv4+IDeIFkPkJOA6ybHfoT5JMU7dz2QyDShcER Hzn8BpXDm2UU0QVOXdYVgwSC7USEipbr4PMOTkYNIvuGJQf6wdBsVyRZE1TOWwUuwkXH6RKIGnI0pwnx EyLPAaFJAVSVmcEDSXDPkaEKMFXL7WAwVsA6UewO03 IDMNCj4+JUbevbQaHksTRqG8POZev8LmSUj6HS3USDQzAmzac2DvBkHkJSWAABtyEO3HIFQ7EJNrTUFl Qk2EUAHcE982vnHdDF6QEh8BYmYpEK7xtp6RBlHuOLSwWgnSSct2KDazDF1JyZXmQGmCle7xxjRmcvWJ j5BnmgFrnZCLIZ1ozyKJAJXmiQUoidncPLUuPVOxKi 96LlMkZFgjQQD3LfQnCX2jNEhqBW1JGLS1RGeaPRKyAJOnK5dRJeJkWKI3DzXxvOilRA4FFfSuB3Joup VudCAyOSAwIFINCj4+VYarunYnIavYXfOwOZEdi2EoBWf4YK8UCRQyDSczGU4VEAWsuD5pWHexUX9KOf SuZnVdCPQNCrUmH43iyMSsLQa4S4LyIyTpEFGwJmom ZXMgPDwvTmFtZXMgWyBdDQogID4+ID4+FUapQA5TMDnxxeNpVNKsWp8DHXLqZSMlZL0yHRXmVRAeQ4G5 mZsrHMZSRdAyC1nubovgHG4vBMUgH507uNjaaeKbPKV8CZPqZw4QFBJgDUU7LHDobWGsIidlEMRAHBlv MA3NsVAcFEZ2oE8iLKphLQPoGSBpL2hHTqOhjIabKY 51bGwgbnVsbCBdDQo+Ga1BSF3wv6XmTCo6rwHrWJicBLMiGZahFSTrQXWnRXGyOIR4DGY8HHCBPoXnUX EkVZOoRDmsPGCxZDKujd4HRDSgLAOdJWRbSqEsBYBfCJGxIHzqVJEhLAV7QCgmAACfXUXxXI7INiJgVJ QcOZZvUGtdTVApGIUnks5ZZGEmNILpGnD7SwAeMEPj JIHcEZovEVBqKBLaXdzpFFXrNQXeGJ0TMcMxBKYsOJDmINBaMGJtANFcdt1XKPJrXWUyDfO0JMJxKEQx BREkVCqgZLFxCJQ2RxS0SIUhRWYgCT2NDjNnSZDgETj1FiXiCPClLAXvnv6KITXsDXBrGXS5CQUkLWLa JQEhOZvgMTOrDPN4SEr6QVWePFBkIQ6MGeCqODTnYS d3VwOjSWJkABMsov7VZAOiATSoDLmbTWWoEJDnGTDeZWgqZXRfQMI9XNRqBKXeVQLqMS1COrMiLCXsQB OwIUgzUTDgOYQiic2YFVTaKZWuGML5ANGoKQIvCYAzMYjvBILhBGCjMXp5QIDpGOKqXX9OIsIbKSLpJv IyOBKxBSJrPQUlgt2TAFKnJJZxZhQgYuFiVTBeONRj KHeaZKEzFIEfIBb6UGFlBIUbLW1JSqXhWIVbHpL0LhHpYLBgMOYjct7QCGZnGYOaBmYfCaMjGLEkNWKb KGqlJOTeWRTgObjrWLKoQMJfZD6EXxOcDXBdChI7XdXzWYLqUTQfpw9PSBRgKNAkTYqcAMGhTFObBFRy EWnwJURhRDZ5UTHfRMMrMCJmDV8XVuBuXOJgJsD9Wv LwGDEaXNQpuv3NJTMhQKOwXvp7CzYlEPUcNDWoKLegOLEvCXN4HEC1LBQeROJxBJ8KXfBwGVUjOhwiKM ScPNPxVXYngh7SpYBihXxkik9ZOVrLDx2WeFjbSSPcJOzxRu7jiZKuFYGfJTJUSm8ObeBkPTGdPJMWLO byGFIlASAtUotwFGOwIuj9QaR3XKbvVYYiONjbVDi8 GKOrHDBhFjK7VxX1QIR3YCFnIwCjRPZ2BzUiQFNvVRG6NKNsRvQsKnF+XO4qQWj+Fq2Wi2BlvtN7mgNb ZHxeJaZ2Gi4OFBXYO0LYSu== ID Date Data Source [id number] 07/27/2019 02:23:07 PM [facility] Name Value Range Interpretation Code Description Data Diane rce(s) Supporting Document(s) Progress Note [facility] FUNCXc8gLsFWQtOj28/TAQjbWUEgi1TuENqcARn8FTusEXMwM9IsZNI7wK4xNBW3APlBKpVnEpLwPtJb m [file] EyKlWlMAQ4HmG2XYOfLuF2WhSuIMU+UC3oWVo+Yj6Nl4WigjJ5iaFlYCuoQzL4Cx9YSBYNH4NYCc== ID Date Data Source [id number] 07/27/2019 02:22:37 PM [facility] Name Value Range Interpretation Code Description Data Diane rce(s) Supporting Document(s) Progress Note [facility] MIUCYz4aHiOYLcSz69/QHCqoXKDbq8DhKXknGNc3BCzkTEWvD4KuZDW6cU7iVUC0GDrUHnHtVyRtGrTr lbm [file] SBFqPJB6WDYxPMKqL2QuIVK0SlDtVX9GIu1MJhI7KNQ4lGVwLi6ABgQ8AGOSRkVtUS4YMOk= ID Date Data Source [id number] 07/21/2019 09:22:51 AM [facility] Name Value Range Interpretation Code Description Data Diane rce(s) Supporting Document(s) Progress Note [facility] TECZRi4rLoTFXrTl39/ONUngEQPow5NmWZylFXo7VAmzBXIzE6BkMEW8fK4kOJS2WNmJQyDkIjGqWZJ9 lbm [file] MKJvvDPAJSEJa443eRzCBNUBCDRMIWZOGMLJQNYFPO AAAAAAAAAAAAAAAAAAAAAAAAAAAAAAAAAAAAAAAAAAAAAAAAAAAAAAAAAAAAAAAAAAAAAAAAAAAAAAAA MYTBUFVYZRKPVYTZPVYLLNHYEZJZXQUCGUEPXIPNPDFVCISKAZYOTIRHTzJp6RbN3Pgt3RUS9eb3WvWN SgBMpahoQxThxSWvQ4IETwo7XcYGduUD3YCQ0sl1Yl UYnoAVWxc6NnDNw0EZ7KCGJxAGObI7TppFWqY2WIWx8WGTn5H5sfBLrzOf4JyCFkVJUmYUbcLA8Tn873 JXn8WZ7VKBNtSZDyECGHDrEgPJDsPiWrPkVnDGBSHQnwGCCkG8KnAIS0WXKhSp2+PAapBH0GS0DcADT6 MPj3XK6lcDtsIRG3MFKbXd4SWKHaPA5xsSawLMR0UI AgUj4+QGbtRU3HcZMNS0IzgJTzPTvqK9GOGF3LSQF9DU6JqJQvTF3UyXBQT1UzlYOuUv2rZLTbz7SfOe 3bV3LUKQMRWTTfPImeNPyyDSDvIOi4Y7O2DQAlD7LSI545qMFpwCo5Bz5zX3WKFMgPEwZaFDojHDfiJY JwNLn0R9G1QGWdT9PNF4QzAdZhtbAhF4S+PiAvUEFU PU9VPPHPMBd8Z1I3eWNqF6G1vGgIaSA9FL4GSX6EjBOjuDMgc37+MqNAIxRaZ7IEE3DSSZ0LYYc9K5Q5 cJPlI8M3qItEzMZ7ID5BZI0WfYfvhRQtYb6pTKtvVFL+Ni3WGm5ILoIjIP7xdu0JNoLhKOZgCrgZNfp8 I1wstjt8dNOrLuK5C3Y5DeJ1vYBoTF1SE7J6pBUpMY D1KALpaCQ+Hs9Wy7SaOGQbJXf9S1hbRZUyJKZvHxNxhC78E++7vnbdcJC3R5b3BVEXgYAivHxIbzPwW1 sAJFM1o5J9LIk/Ig8QTGY4vHy3xENoWIFxKTj5sW9jeEm2YuBwIT41GHAaFEmgzC3pTxs1P5Ypy4RyCz 8cMe8wcBBnDq8GNvSuTIG1utWkMvNWNfM0bHeiqbas QYL6R4m8aTE4Mf30e7fftlLiu5KqJyM2DDfuZDWtJoXojrObBBA7bvXjeR9ggqQzNi2PPOLpDNqklsQw MeOGKe5HCxVnFF25ZgbbuU5ghOI+DQogICAgICAgICAgICAgICAgICAgICAgICAgICAgICAgICAgICAg ICAgICAgICAgICAgICAgICAgICAgICAgICAgICAgIC AgICAgICAgICAgICAgICAgICAgICAgICAgICAgICAgDQogICAgICAgICAgICAgICAgICAgICAgICAgIC AgICAgICAgICAgICAgICAgICAgICAgICAgICAgICAgICAgICAgICAgICAgICAgICAgICAgICAgICAgIC AgICAgICAgICAgICAgDQogICAgICAgICAgICAgICAg ICAgICAgICAgICAgICAgICAgICAgICAgICAgICAgICAgICAgICAgICAgICAgICAgICAgICAgICAgICAg ICAgICAgICAgICAgICAgICAgICAgICAgDQogICAgICAgICAgICAgICAgICAgICAgICAgICAgICAgICAg ICAgICAgICAgICAgICAgICAgICAgICAgICAgICAgIC AgICAgICAgICAgICAgICAgICAgICAgICAgICAgICAgICAgDQogICAgICAgICAgICAgICAgICAgICAgIC AgICAgICAgICAgICAgICAgICAgICAgICAgICAgICAgICAgICAgICAgICAgICAgICAgICAgICAgICAgIC AgICAgICAgICAgICAgICAgDQogICAgICAgICAgICAg ICAgICAgICAgICAgICAgICAgICAgICAgICAgICAgICAgICAgICAgICAgICAgICAgICAgICAgICAgICAg ICAgICAgICAgICAgICAgICAgICAgICAgICAgDQogICAgICAgICAgICAgICAgICAgICAgICAgICAgICAg ICAgICAgICAgICAgICAgICAgICAgICAgICAgICAgIC AgICAgICAgICAgICAgICAgICAgICAgICAgICAgICAgICAgICAgDQogICAgICAgICAgICAgICAgICAgIC AgICAgICAgICAgICAgICAgICAgICAgICAgICAgICAgICAgICAgICAgICAgICAgICAgICAgICAgICAgIC AgICAgICAgICAgICAgICAgICAgDQogICAgICAgICAg ICAgICAgICAgICAgICAgICAgICAgICAgICAgICAgICAgICAgICAgICAgICAgICAgICAgICAgICAgICAg ICAgICAgICAgICAgICAgICAgICAgICAgICAgICAgDQogICAgICAgICAgICAgICAgICAgICAgICAgICAg ICAgICAgICAgICAgICAgICAgICAgICAgICAgICAgIC WmWTXmXIFmYYPeOGFvVSPqVPRcQKHpHKYtLCGaCRJoIHAwFKSxIMOpISe7N4gcFZFhWUCrCW0kZPa5Lk 8+HNaONlGxOST9wrPmgO1QVG9qz8ZlVDsvJDPdh1DpMXv3XS3QBNIcIBsdNG7TFDjlsd1FXEBwHOStvS REr6fnShEgUYB2KFKyBkmdLD7XQOQvG4qziaBbHVTj XAWEFBdiJYHXXDycQLNSOFSfGYOoMlYaFmNsIAUnTVQuTFPVBS9SZjQlQ6GioP40NXDHSl7+DQplbmRv LlaDLbCjBJTtv2YtKEm9SO3QAFNyTpufi1FwUtLmKVBJTTpnGM0HOMA4WZTzVGDcTk7BLKBbI481soIc QF3SXa0NNrEdGW8ptw0EStRwTERzJooIRif4ROwxLM 2TuFGkJHmUdm8qujWtaoNUc4ZgtfBgoHDGdAQ8KZ3aVHnfZC4GUJP6TJLmPhheGcFcWNKzVenbWKWHYG cHSyAkS2Ykb8NtTdB8GGRwEsKcCCjiPYEdVIslKT01bIerIN7KAAMxTUXsQM05WDOxBHPiEd6KCj4DMr DhPH2viv8SUwUjKFSvTitVHmi9GSzjMJ8MbLAaG8Lb qDIlt7dVMcRgE8FCKWP1HXRpQr5CJNToToHfLAAtTCejZY9wJKKwDZCQlBjcrtZ0QQ4ASA2pljJeQO4W IoHtHu3gTq4IZoOdU8WqV5GzQTDhEMFQFPhyLM9JMAayWZ3rOI4Vj1ARqEUnyE1ijc8SUTPoYHSnGhww gl2BZfheU8Y9iAzfWJJlXkSxBBZZUXvuWP6USLVnXN I8UMAmDRPpBLGTGpYwY89hSR6TE9Wib43cVfI5NZHhBgXtVTkuKQ58qMsvsmLuwACixOrcEO9DRf7+DQ jbvqGxJfsMLiatCSVQAiSiVsLHGyUxIFCsHSXeSGXbUhJ6YwNlTf8JVEBcUACoZWYvHaHePPKqPDLtJU wqUJNyJTf6VrLzSRMxMXWuZF7UQaSbDCNeDNb4GNgz FSLjZDGfax7VAQAtSGOsFBP7FiOxAXJlAAMpDAidQZClWDGjUoh6MRZxJDYaWO5WMeKjDEViXVC6LOww IAWrDIXdpk5BVQLhFMPgMMgnGGFkPVZhGPHiNQeaHWGwVIS5DNT8EADxSTTzTL8HLfDeXUJwYXP8LYrn NAMnHMBbwe5CLUGfJHAgQSr8ZqYzWCCnCGYbFJsjKP RzRLNeWKBxYTQyZCXxLM8MVyAwFMWgRDAuJJguGEOtLVJljm9IGDSqVRQeOSb0ZGYbVQVrPXSuOQhzYB OvSQG3EMP0XYUcWUGgGZ8NPxBcTBNeBGT3WyPsQJTjKKWbvp0CXJEySAKhNzD7RCHtMQApUSTiKGwcTA GkEIR3EMS8HQQiYFOqZZ7WOqDrKWLpEKhdGjRbQYFz OBYzqe8KXKGaDUKpWLHgDOLnHHCzNCAzLWasJVLhKWB8UTv1SMBvCEEzKG3HPzJnDKCnSJj1FQRbGSMt KRLnem0JVCPxERJsNUh4FVSfHPBwZSRmDZimCSUmLXXeFdnxTKAwTMHdWT2QToIgAHCaKUV7MPGlQQZs KYZtdb2FKGRfOFP9FNU3XLIbNHUkMAAuHOebXBUkWO L9GXM3QRSuPTKmGJ0COkGbBSBwENJ7VOCbLDEvWVJexv9MVVKwLDN8XfL1BSOnLHByGNByCIraGUHjYL b0McM8LFSrDIHuKE2GKhTqTLQfNHCyTDzkCPWuVFUmtb0FLRGuYBK8XnKbFFQeUIZnHMAlCKwsGLWrLF z0RsYsQEEaZDDeOU2UUmMnJNKcXVk0DQWcABMuOGRb ym7CxRQkyQnmhh2LFUlGEa7TiXjbOFP3YNghBe6jtQLcBfXuHLZTIx7HqrGwZKItLMQXBKmzZEXwART6 QWP4B2FaIZQ6UmF6ISFuGNGlQXFuTgHePZgdRFR8NeY7SrCnSji3BwG5NPUgDkm0BQHmBUPbYNMrQCR4 A9GuNHW+VC0wUSw+Kt1Rp4AofhT4pkJuTSd0JCY8PH9CKRHLR9PNPg== ID Date Data Source [id number] 09/14/2019 08:13:08 AM EDT [facility] Service Cmnt XXX-Imp : Acid fast Stn XXX : No Acid fast bacilli seen on Fluorochrome stain.Microorganism XXX Cult : No growth (qualifier value) Name Value Range Interpretation Code Description Data Diane rce(s) Supporting Document(s) ID Date Data Source [id number] 07/24/2019 11:59:35 AM EST [facility] Service Cmnt XXX-Imp : Gram Stn XXX : Un able to perform testMicroorganism XXX Cult : 2Burkholderia multivorans (organism)3Normal stephanie Name Value Range Interpretation Code Description Data Diane rce(s) Supporting Document(s) ID Date Data Source [id number] 06/15/2019 11:26:12 AM EST [facility] Name Value Range Interpretation Code Description Data Diane rce(s) Supporting Document(s) Progress Note [facility] RWKSKr7kZgKUFlGl75/GVAqfIWHsv8QxXAqmZLk2WFkwECGkT6HuYLR0cB0pHDK2NYuLAzMmHQdzPhAt [facility] [file] 9GDQo= ID Date Data Source [id number] 06/15/2019 11:24:25 AM EST [facility] Name Value Range Interpretation Code Description Data Diane rce(s) Supporting Document(s) Progress Note [facility] RYFPWn7zJoIMViZu17/DEQfkKNGrx1HfANovCOd6LUzvKNHdI9DuCXC9pV5hTBM9VRwZGxVgJTyxTfKu lbm [file] 9GDQo= Procedure Social History Code Duration Value Status Description Data Source(s ) Alcohol intake 02/22/2020 12:00:00 AM EDT Current non-d joshua of alcohol (finding) completed Current non-drinker of alcohol (finding) [facility] Tobacco use and exposure 02/22/2020 12:00:00 AM EDT Never used co mpleted Never used [facility] Smoking 02/22/2020 12:00:00 AM EDT Never smoker completed Never s [facility] Alcohol intake 11/09/2019 12:00:00 AM EDT Current non-d joshua of alcohol (finding) completed Current non-drinker of alcohol (finding) [facility] Smoking 11/09/2019 12:00:00 AM EDT Never smoker completed Never s [facility] Alcohol intake 08/16/2019 12:00:00 AM EST Current non-d joshua of alcohol (finding) completed Current non-drinker of alcohol (finding) [facility] Smoking 08/16/2019 12:00:00 AM EST Never smoker completed Never [facility] Alcohol intake 08/16/2019 12:00:00 AM EST Current non-d joshua of alcohol (finding) completed Current non-drinker of alcohol (finding) [facility] Alcohol intake 07/20/2019 12:00:00 AM EST Current non-d joshua of alcohol (finding) completed Current non-drinker of alcohol (finding) [facility] Smoking 07/20/2019 12:00:00 AM EST Never smoker completed Never [facility] Vital Signs ID Date Data Source UNK Name Value Range Interpretation Code Description Data Source(s) Diastolic blood pressure 58 mm[Hg] 58 mm[Hg] W1 ([facility]) Systolic blood pressure 104 mm[Hg] 104 mm[Hg] e CW1 ([facility]) Body temperature 98.2 [degF] 98.2 [degF] eCW1 ( [facility]) Respiratory rate 16 /min 16 /min eCW1 ([facility]) Heart rate 79 /min 79 /min W1 (Count includes the [facility]) Body mass index (BMI) [Ratio] 21.76 kg/m2 21.76 kg/m2 W1 ([facility]) Body height 62 [in_us] 62 [in_us] W1 ([facility]) Body weight Measured 119 [lb_av] 119 [lb_av] eC W1 ([facility]) ID Date Data Source [id number] 03/05/2020 04:42:25 PM EDT [facility] Name Value Range Interpretation Code Description Data Source(s) WEIGHT RECORDED 118.25 lb 118.25 lb [facility] Body height Measured 62.13 in 62.13 in [facility] ID Date Data Source [id number] 09/14/2019 08:13:17 AM [facility] Name Value Range Interpretation Code Description Data Source(s) WEIGHT RECORDED 115.6 lb 115.6 lb [facility] Body height Measured 62.13 in 62.13 in [facility] ID Date Data Source [id number] 06/15/2019 11:26:12 AM [facility] Name Value Range Interpretation Code Description Data Source(s) WEIGHT RECORDED 113 lb 113 lb [facility] Body height Measured 61.73 in 61.73 in [facility] ID Date Data Source [id number] 08/25/2019 01:12:39 PM [facility] Value Range Interpretation Code Description Data Source(s) WEIGHT RECORDED 112 lb 112 lb [facility] Body height Measured 61.81 in 61.81 in [facility] ID Date Data Source [id number] 08/25/2019 01:12:45 PM [facility] Value Range Interpretation Code Description Data Source(s) WEIGHT RECORDED 113.25 lb 113.25 lb [facility] Body height Measured 62.48 in 62.48 in [facility] Patient Treatment Plan of Care Planned Activity Planned Date Details Description Data Source (s) albuterol (PROVENTIL HFA) inhaler 2 puff 02/22/2020 02:45:00 PM EDT [facility] 60 ACTUAT Fluticasone propionate 0.5 MG/ ACTUAT / salmeterol 0.05 MG/ACTUAT Dry Powder Inhaler 11/09/2019 12:00:00 AM EDT [facility] Dxcynsza-Qwbkudu-Zznuvs&Ivacaf 100-50-75 & 150 MG Oral Tablet Therapy Pack (Trikafta) 09/14/2019 12:00:00 AM EDT [facility] Albuterol 0.83 MG/ML Inhalant Solution 09/14/2019 12:00:00 AM [facility] Albuterol Sulfate HFA 108 (90 Base) MCG/ ACT Inhalation Aerosol Solution (PROVENTIL HFA;VENTOLIN HFA) 09/14/2019 12:00:00 AM [facility] Azithromycin 250 MG Oral Tablet 09/14/2019 12:00:00 AM [facility] Dornase Isaak 1 MG/ML Inhalant Solution 09/14/2019 12:00:00 AM [facility] MVW Complete Formulation D5000 Oral Capsule 09/14/2019 12:00:00 AM [facility] Amylases 559822 UNT / Endopeptidases 760 00 UNT / Lipase 02138 UNT Delayed Release Oral Capsule 09/14/2019 12:00:00 AM [facility] Sodium Chloride 1.2 MEQ/ML Inhalant Solution 09/14/2019 12:00:00 AM [facility] Tobramycin 60 MG/ML Inhalant Solution 09/14/2019 12:00:00 AM [facility] Vitamin K 1 5 MG Oral Tablet 09/14/2019 12:00:00 AM [facility] 60 ACTUAT Fluticasone propionate 0.25 MG /ACTUAT / salmeterol 0.05 MG/ACTUAT Dry Powder Inhaler 09/14/2019 12:00:00 AM [facility] albuterol (PROVENTIL HFA;VENTOLIN HFA) inhaler 2 puff 07/20/2019 03:00:00 PM [facility] 60 ACTUAT Fluticasone propionate 0.25 MG /ACTUAT / salmeterol 0.05 MG/ACTUAT Dry Powder Inhaler 07/20/2019 12:00:00 AM [facility] Minocycline 100 MG Oral Capsule 07/14/2019 12:00:00 AM [facility] Tobramycin 60 MG/ML Inhalant Solution 07/01/2019 12:00:00 AM [facility] Lidocaine 25 MG/ML / Prilocaine 25 MG/ML Topical Cream 02/18/2019 12:00:00 AM [facility] 60 ACTUAT Fluticasone propionate 0.25 MG /ACTUAT / salmeterol 0.05 MG/ACTUAT Dry Powder Inhaler 02/18/2019 12:00:00 AM [facility] Lancets (FREESTYLE) lancets 08/25/2018 12:00:00 AM [facility] FREESTYLE LITE test strip 08/25/2018 12:00:00 AM [facility]
[2020-07-14] MEDS ORDERED: AMPH1CAP16 (21:33)
[2020-07-14] MEDS ORDERED: HYDR-4570 (21:33)
[2020-07-14] MEDS ORDERED: VENL150C43 (21:33)
--- OUTSIDE RECORDS SUMMARY | 2020-07-14 22:42 | CCD ---
Author Author [facility] Organization [facility] Address Unknown Phone Unavailable Care Team Providers Care Emt Name Role Phone FEDORS, KANA FLIGHT ENGINEER HELICOPTER Unavailable Unavailable FEDORS, KANA FLIGHT ENGINEER HELICOPTER Unavailable Unavailable FEDORS, KANA FLIGHT ENGINEER HELICOPTER Unavailable Unavailable FEDORS, KANA FLIGHT ENGINEER HELICOPTER Unavailable Unavailable FEDORS, KANA FLIGHT ENGINEER HELICOPTER Unavailable Unavailable FEDORS, KANA FLIGHT ENGINEER HELICOPTER Unavailable Unavailable FEDORS, KANA FLIGHT ENGINEER HELICOPTER Unavailable Unavailable FEDORS, KANA FLIGHT ENGINEER HELICOPTER Unavailable Unavailable FEDORS, KANA FLIGHT ENGINEER HELICOPTER Unavailable Unavailable FEDORS, KANA FLIGHT ENGINEER HELICOPTER Unavailable Unavailable FEDORS, KANA FLIGHT ENGINEER HELICOPTER Unavailable Unavailable FEDORS, KANA FLIGHT ENGINEER HELICOPTER Unavailable Unavailable FEDORS, KANA FLIGHT ENGINEER HELICOPTER Unavailable Unavailable FEDORS, KANA FLIGHT ENGINEER HELICOPTER Unavailable Unavailable FEDORS, KANA FLIGHT ENGINEER HELICOPTER Unavailable Unavailable FEDORS, KANA FLIGHT ENGINEER HELICOPTER Unavailable Unavailable FEDORS, KANA FLIGHT ENGINEER HELICOPTER Unavailable Unavailable FEDORS, KANA FLIGHT ENGINEER HELICOPTER Unavailable Unavailable FEDORS, KANA FLIGHT ENGINEER HELICOPTER Unavailable Unavailable FEDORS, KANA FLIGHT ENGINEER HELICOPTER Unavailable Unavailable Alina WILSON Unavailable Unavailable DEBBIE [...] E AYAN VILLALOBOS Unavailable Unavailable JAYLIN, E AAYN VILLALOBOS Unavailable Unavailable JAYLIN, E AYAN VILLALOBOS [...] is protected by Article 27-F of the [facility] Public Health law. If you continue you may have access to information: Regarding HIV / AIDS; Provided by facilities licensed or operated by the [facility] Office of Mental Health; or Provided by the [facility] Office for People With Developmental Disabilities. If such information is present, then the following [facility] mandated warning applies: This information has been [...] may result in a fine or senior care sentence or both. A general authorization for the release of medical or other information is NOT sufficient authorization for further disc losure. Allergies and Adverse Reactions Type Description Substance Reaction Status Data Source(s ) Vancomycin HCl Vancomycin HCl Vancomycin 50 MG/ML Oral Solutio n Hives, trouble breathing Active eCW1 ([facility]) Food allergy CUCUMBER-IN FOOD CUCUMBER-IN FOOD [facility] Encounters Encounter Providers Location Date Indications Data Source(s ) Outpatient Attender: Walker Eid MD 07/18/2020 12:00:00 AM [facility] Outpatient Attender: Walker Eid MD 05/17/2020 12:00:00 AM [facility] Outpatient Attender: LANEY CALHOUN MNT [id number] 02/22/2020 03:30:22 P M [facility] Outpatient Attender: KANA OWUSU NPReferrer: DEBBIE Gregory [id number] 02/22/2020 12:00:00 AM EDT - 02/24/2020 08:55:56 AM EDT Cystic fibrosis, [facility] Cystic fibrosis, unspecified Outpatient Attender: PRISCILARANJANA GARCIA 02/22/2020 12:00:00 AM [facility] Outpatient Attender: KANA OWUSU NP 02/15/2020 12:00:00 A [facility] [address] [place] [address], [place] [address] 12/29/2019 12:00:00 AM EDT eCW1 ([facility]) Outpatient Referrer: Walker Eid MD 11/23/2019 12:00:00 AM [facility] Outpatient Attender: Walker Eid MDReferrer: DEBBIE REECE [id number] 11/09/2019 12:00:00 AM EDT - 11/09/2019 03:10:54 PM EDT Cystic fibrosis, [facility] Cystic fibrosis, unspecified [facility] [address] [address] 10/29/2019 12:00:00 AM EDT eCW1 ([facility]) Outpatient Attender: AYAN MOSQUEDA MD 10/28/2019 12:00 :00 AM [facility] Outpatient Attender: AYAN MOSQUEDA MD 10/26/2019 12:00 :00 AM [facility] Outpatient 09/24/2019 05:38:00 AM EDT [facility] Outpatient Attender: Walker Eid MD 09/14/2019 12:00:00 AM [facility] Outpatient Referrer: Walker Eid MD 09/11/2019 12:00:00 AM [facility] Outpatient Attender: SANTIAGO WILSON [id number] 07/20/2019 04:05:3 2 PM [facility] Outpatient Attender: SANTIAGO WILSON [id number] 07/20/2019 03:56:2 2 PM [facility] Outpatient Attender: Walker Eid MDReferrer: DEBBIE REECE [id number] 07/20/2019 12:00:00 AM EST - 08/24/2019 12:00:00 AM EST Cystic fibrosis, unspecified [facility] Cystic fibrosis, unspecified Outpatient Attender: KANA OWUSU NP 07/14/2019 12:00:00 A M [facility] Outpatient Attender: KANA OWUSU NP [id number] 2018 12:00:00 AM EDT - 05/08/2019 03:23:36 PM EST Cystic fibrosis with pulmonary manifestations [facility] Cystic fibrosis with pulmonary manifesta tions Outpatient Attender: KANA OWUSU NP [id number] 2018 12:00:00 AM EDT - 11/25/2018 01:38:52 PM EDT Cystic fibrosis, unspecified [facility] Cystic fibrosis, unspecified Outpatient Attender: KANA OWUSU NPReferrer: DEBBIE Gregory [id number] 11/18/2018 12:00:00 AM EDT - 11/18/2018 02:38:28 PM EDT Cystic fibrosis, unspecified [facility] Cystic fibrosis, unspecified Immunizations Vaccine Date Status Description Data Source(s) As of February 1999, a 2-dose hepatitis B schedule for adolescents (11-15 year olds) was FDA approved for [employer]'s Recombivax HB adult formulation. Use code 43 for the 2-dose. This code should be used for any use of standard adult formulation of hepatitis B vaccine. 10/29/2019 10:54:00 AM EDT completed eCW1 ([facility]) Medications Medication Brand Name Start Date Product Form Dose Route Admi nistrative Instructions Pharmacy Instructions Status Indications Reaction Description Data Source(s) albuterol (PROVENTIL HFA) inhaler 2 puff 1597-8462-09 02/22/2020 02:45:00 PM EDT 2 {puff} Inhalation completed 2 puff, Inhalation, Once, 02/22/20 at 1445, For 1 dose
Shake the inhaler well before each spray.
[facility] Medication administered onsite 60 ACTUAT Fluticasone propionate 0.5 MG/ ACTUAT / salmeterol 0.05 MG/ACTUAT Dry Powder Inhaler Fluticasone-Salmeterol 500-50 MCG/DOSE Inhalation Aerosol Powder Breath Activated (Advair Diskus) Fluticasone-Salmeterol 500-50 MCG/DOSE Inhalation Aerosol Powder Breath Activated (Advair Diskus) 11/09/2019 12:00:00 AM EDT 1 {puff} Inhalation active Cystic fibrosis Inhale 1 puff into the lungs Two Times Daily [facility] Cystic fibrosis Azithromycin 250 MG Oral Tablet Azithromycin 250 MG Or al Tablet (Zithromax) Azithromycin 250 MG Oral Tablet (Zithromax) 09/14/2019 12:00:00 AM EDT 250 mg Oral active Cystic fibrosis with pulmonary manif estations Take 1 tablet by mouth daily [facility] Cystic fibrosis with pulmonary manifesta tions Dornase Isaak 1 MG/ML Inhalant Solution D ornase Isaak 1 MG/ML Inhalation Solution (PULMOZYME) Dornase Isaak 1 MG/ML Inhalation Solution (PULMOZYME) 0 09/14/2019 12:00:00 AM EDT 2.5 mg Inhalation active Cys tic fibrosis with pulmonary manifestations Inhale 2.5 mg into the lungs daily [facility] Cystic fibrosis with pulmonary manifesta tions Sodium Chloride 1.2 MEQ/ML Inhalant Solu tion Sodium Chloride 7 % Inhalation Nebulization Solution Sodium Chloride 7 % Inhalation Nebulization Solution 09/14/2019 12:00:00 AM EDT 4 mL Nebulization active Cystic fibrosis with pulmonary manifestations Take 4 mLs by nebulization daily [facility] Cystic fibrosis with pulmonary manifesta tions Tobramycin 60 MG/ML Inhalant Solution To bramycin 300 MG/5ML Inhalation Nebulization Solution (Georgina) Tobramycin 300 MG/5ML Inhalation Nebuliz ation Solution (Georgina) 09/14/2019 12:00:00 AM EDT 300 mg Nebulization active Cystic fibrosis with pulmonary manifestations Take 5 m Ls by nebulization Two Times Daily [facility] Cystic fibrosis with pulmonary manifesta tions MVW Complete Formulation D5000 Oral Capsule [id number] 09/14/2019 12:00:00 AM EDT 2 {capsule} Oral active Cystic fibrosis with pulmonary manifestations Take 2 capsules by mouth daily [facility] Cystic fibrosis with pulmonary manifesta tions Amylases 209931 UNT / Endopeptidases 760 00 UNT / Lipase 46206 UNT Delayed Release Oral Capsule Pancrelipase (Yvw-Cdpk-Kahy) 10969-86568 UNIT Oral Capsule Delayed Release Particles Pancrelipase (Qru-Zrzi-Gxfe) 10531-17767 UNIT Oral Capsule Delayed Release Particles 09/14/2019 12:00:00 AM EDT Oral active Cystic fibrosis with pulmonary manifestations Take 4 capsules by mouth Three times daily with meals And take 3 capsules with snacks. [facility] Cystic fibrosis with pulmonary manifesta tions Albuterol Sulfate HFA 108 (90 Base) MCG/ ACT Inhalation Aerosol Solution (PROVENTIL HFA;VENTOLIN HFA) 2564-0052-98 09/14/2019 12:00:00 AM EDT 2 {puff} Inhalation active Cystic fibrosis with pulmonary manif estations Inhale 2 puffs into the lungs every 4 (four) hours as needed [facility] Cystic fibrosis with pulmonary manifesta tions Albuterol 0.83 MG/ML Inhalant Solution A lbuterol Sulfate (2.5 MG/3ML) 0.083% Inhalation Nebulization Solution (PROVENTIL) Albuterol Sulfate (2.5 MG/3ML) 0.083% Inhalation Nebulization Solution (PROVENTIL) 09/14/2019 12:00:00 AM EDT 2.5 mg Nebulization active Cystic fibrosis with pulmon drea manifestations Take 3 mLs by nebulization every 4 (four) hours as needed [facility] Cystic fibrosis with pulmonary manifesta tions Ruwnnggx-Adbjyzu-Ohnuez&Ivacaf 100-50-75 & 150 MG Oral Tablet Therapy Pack (Trikafta) [id number] 09/14/2019 12:00:00 AM EDT active Cystic fibrosis with pulmonary manifestations Take 2 orange tablets in the morning. Take 1 blue tablet in the evening [facility] Cystic fibrosis with pulmonary manifesta tions Vitamin K 1 5 MG Oral Tablet Phytonadione 5 MG Oral Ta blet (MEPHYTON) Phytonadione 5 MG Oral Tablet (MEPHYTON) 09/14/2019 12:00:00 AM EDT 5 mg Oral active Cystic fibrosis with pulmonary manifestat ions Take 1 tablet by mouth once a week [facility] Cystic fibrosis with pulmonary manifesta tions [...] puff into the lungs Two Times D [facility] Cystic fibrosis with pulmonary manifesta tions albuterol (PROVENTIL HFA;VENTOLIN HFA) inhaler 2 puff 20049 07/20/2019 03:00:00 PM EST 2 {puff} Inhalation completed 2 puff, Inhalation, Once, Sat07/20/19 at 1500, For 1 dose
Shake the inhaler well before each spray.
[facility] Medication administered onsite 60 ACTUAT Fluticasone propionate 0.25 MG /ACTUAT / salmeterol 0.05 MG/ACTUAT Dry Powder Inhaler Fluticasone-Salmeterol 250-50 MCG/DOSE Inhalation Aerosol Powder Breath Activated (ADVAIR DISKUS) Fluticasone-Salmeterol 250-50 MCG/DOSE Inhalation Aerosol Powder Breath Activated (ADVAIR DISKUS) 07/20/2019 12:00:00 AM EST 1 {puff} Inhalation active CF (cystic fibrosis) Inhale 1 puff into the lungs Two Times Daily [facility] CF (cystic fibrosis) Minocycline 100 MG Oral Capsule Minocycline HCl 100 MG Oral Capsule (MINOCIN) Minocycline HCl 100 MG Oral Capsule (MINOCIN) 07/14/2019 12:00:00 AM EST 100 mg Oral active CF (cystic fibrosis) Take 1 capsule by mouth Two Times Daily [facility] CF (cystic fibrosis) Tobramycin 60 MG/ML Inhalant Solution To bramycin 300 MG/5ML Inhalation Nebulization Solution (GEORGINA) Tobramycin 300 MG/5ML Inhalation Nebuliz ation Solution (GEORGINA) 07/01/2019 12:00:00 AM EST 300 mg Nebulization active Cystic fibrosis with pulmonary manifestations Take 5 m Ls by nebulization Two Times Daily [facility] Cystic fibrosis with pulmonary manifesta tions 60 ACTUAT Fluticasone propionate 0.25 MG /ACTUAT / salmeterol 0.05 MG/ACTUAT Dry Powder Inhaler Fluticasone-Salmeterol (ADVAIR DISKUS) 250-50 MCG/DOSE AEPB Fluticasone-Salmeterol (ADVAIR DISKUS) 250-50 MCG/DOSE AEPB 02/18/2019 12:00:00 AM EDT 1 {puff} Inhalation aborted CF (cystic fibrosis) Inhale 1 puff into the lungs Two Times Daily [facility] CF (cystic fibrosis) Lidocaine 25 MG/ML / Prilocaine 25 MG/ML Topical Cream lidocaine-prilocaine (EMLA) cream lidocaine-prilocaine (EMLA) cream 02/18/2019 12:00:00 AM EDT aborted Cystic fibrosis with pulmonary manifestat ions Apply 30-60 minutes prior to port access. [facility] Cystic fibrosis with pulmonary manifesta tions FREESTYLE LITE test strip [id number] 08/25/2018 12:00:00 AM EST active Check 2-3 times daily Dx R73.[address] [facility] Lancets (FREESTYLE) lancets [id number] 08/25/2018 12:00:00 AM EST active Use as directed. Check 2-3 times daily Dx R73.9 [facility] Insurance Providers Payer name Policy type / Coverage type Policy ID Covered republican ID Covered republican's relationship to lau Policy Lau Plan Information [facility] [id number] [facility] [id number] U [id number] Self [id number] [facility] REG O [id number] S [id number] [facility] OFFICE OF VICTIM [facility] [id number] [facility] [id number] [facility] [id number] U [id number] Self [id number] ANSI-Not a Secondary Insurance [id number] [facility] [id number] [facility] [id number] ANSI-Not a Secondary Insurance [id number] Problems, Conditions, and Diagnoses Code Display Name Description Problem Type Effective Dates Data Source(s) E84.0 Cystic fibrosis with pulmonary manifesta tions Cystic fibrosis with pulmonary manifestations Diagnosis 11/09/2019 11:33:25 AM EDT [facility] 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.19 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 Cystic fibrosis with other intestinal manifestations Diagnosis 08/16/2019 07:49:08 PM EST [facility] Z79.52 terminal operator (current) use of systemic ster oids terminal operator (current) use of systemic steroids Diagnosis 07/20/2019 02:32:59 PM EST [facility] Surgeries/Procedures Procedure Description Date Indications Data Source(s) LAB RESULTS (OUTSIDE/HISTORICAL) LAB RESULTS (OUTSIDE/HISTORICA L) 06/27/2020 10:56 AM EST 06/27/2020 10:56:07 AM EST [facility] SPIROMETRY + PRE & POST BRONCHODILATOR TEST (ALBUTEROL OR XOPENEX) <td><content ID="[id number]">SPIROMETRY + PRE & POST BRONCHODILATOR TEST (ALBUTEROL OR XOPENEX)</content></td><td>Routine</td><td>02/22/2020 2:47 PM EDT</td><td><paragraph>Cystic fibrosis</paragraph></td><td></td> 02/22/2020 02:47:05 PM EDT [facility] Cystic fibrosis REMOTE HOME PFT REMOTE HOME PFT Routine 11/09/2019 1:45 PM E DT Cystic fibrosis Cystic fibrosis with pulmonary manifestations 11/09/2019 05: 45:00 PM EDT Cystic fibrosis with pulmonary manifestationsCystic [facility] Cystic fibrosis with pulmonary manifesta tions Cystic fibrosis Hepatitis B Adult 1.0mL (Engerix-B) 10/29/2019 12:00:0 0 AM EDT eCW1 ([facility]) IMMUNIZATION ADMIN 10/29/2019 12:00:00 AM EDT eCW1 ([facility]) SPIROMETRY + PRE & POST BRONCHODILATOR TEST (ALBUTEROL OR XOPENEX) <td><content ID="[id number]">SPIROMETRY + PRE & POST BRONCHODILATOR TEST (ALBUTEROL OR XOPENEX)</content></td><td>Routine</td><td>07/20/2019 2:54 PM EST</td><td><paragraph>CF (cystic fibrosis)</paragraph></td><td></td> 07/20/2019 07:54:13 PM EST CF (cystic fibrosis) [facility] CF (cystic fibrosis) Results ID Date Data Source [id number] 03/05/2020 04:42:25 PM EDT [facility] Name Value Range Interpretation Code Description Data Diane rce(s) Supporting Document(s) Progress Note [facility] KDZGUq6aNbFGYaWm01/VRBdgOMZns8XaABhaKHz3SFfuHVXwT0CbSKP9qK6jOMI9ATkRAlKaNbAkZGXc lbm [file] V6SzVqKUGfNWZ3IDrcJLIpDVTdSLOaHx7pUEUFAd9+EQrslCJomGenTJWIJuO6Fbs0MZaaGWNENu6N ID Date Data Source [id number] 02/26/2020 08:32:21 AM EDT [facility] Service Cmnt XXX-Imp : NoneGram Stn XXX : Unable to perform testMicroorganism XXX Cult : 2+Staphylococcus aureus.3+Indigenous microorganisms. Name Value Range Interpretation Code Description Data Diane rce(s) Supporting Document(s) ID Date Data Source [id number] 02/22/2020 03:57:25 PM EDT [facility] Name Value Range Interpretation Code Description Data Diane rce(s) Supporting Document(s) Progress Note [facility] PAFASc9yObZOMqJv58/IOGziCBUpj9BvNQugBLr7BYsoUJZoO2QxLBD5kC5lZXR8NSyUAhTaRhAxZIJf lbm [file] edwLQyQ0hUc946lKWu3v/FLIGHT ENGINEER HELICOPTER/2iLhDAJmW57FKtJ8mAUGko3FvCfeidQ7CgyLLXR0ELNBHhtbADAVjua1 [file] u/evp operations/1em9puz+T0scsvQ9pvBAUIVG5UDdmD/wv69ox9Cabh07bgnDU2/EIddL+Y2O34nc6V8XmeilpZp [file] FX1NYk2PCvL8PHQ4qORwWf1QVMx2OLZJHyPiVI7BXEk= ID Date Data Source [id number] 02/22/2020 06:13:18 PM [facility] Name Value Range Interpretation Code Description Data Diane rce(s) Supporting Document(s) Albumin [Mass/volume] in Serum or Plasma by Bromocresol green (BCG) dye binding method 4.8 g/dL 3.5-5.2 [facility] Bilirubin.total [Mass/volume] in Serum or Plasma 0.6 mg/dL <1.2 [facility] Bilirubin.direct [Mass/volume] in Serum or Plasma <0.3 [facility] Alkaline phosphatase [Enzymatic activity/volume] in Serum or Plasma 77 U/L 35-104 [facility] Aspartate aminotransferase [Enzymatic activity/volume] in Serum or Plasma 21 U/L <32 [facility] Alanine aminotransferase [Enzymatic activity/volume] in Seru m or Plasma 15 U/L <33 [facility] Protein [Mass/volume] in Serum or Plasma 7.5 g/dL 6.4-8.3 [facility] ID Date Data Source [id number] 02/22/2020 03:30:22 PM [facility] Name Value Range Interpretation Code Description Data Diane rce(s) Supporting Document(s) Progress Note [facility] NHUWVo8lNfLQVnAm06/KQSwiLWPsf8MmOLygTEf7WNhvOOZcZ0RkBSM8eL6wEZD1KBcNRoOgTlDqOTHu [facility] [file] Hn3sZAURTv4+QJxghMUttTufBFCZSaL1ZZlwWOkdGXQGRu8E ID Date Data Source [id number] 11/09/2019 10:04:29 PM EDT [facility] Name Value Range Interpretation Code Description Data Diane rce(s) Supporting Document(s) Progress Note [facility] QRQFBv4rVfMOBvFf49/MNZykVZSeg3EaPWllFXn5CDxdEPGyR5LgSLL2pQ1fGNU5CPfTQpLcLoJsYMH5 lbm [file] c5Hagb48ju3KtrDJh0/lQ1nl0+bQv8Yyt9p8JsD+pie dough roller/uAghslJPIijykFenFVbBP6QUlKkNK6edt2RVE [file] a961vFTc6s/FLIGHT ENGINEER HELICOPTER/1bAkFWZnH40DXhO2lLOVra3DyJcp [file] ijcdF50PhIQYz7aGf0Mh/27/Z/2z7yX+hT+8d3juKDG2wq4WTIZrUa/S6npE33F+9Kl3ZWs/evp operations/6nf6e [file] ICAgICAgICAgICAgICAgICAgICAgICAgICAgICAgICAgICAgICAgICAgICAgICAgICAgICAgICAgICAg ICAgICAgICAgICAgICAgICAgICAgICAgICAgICAgICAgICAgICANCiAgICAgICAgICAgICAgICAgICAg ICAgICAgICAgICAgICAgICAgICAgICAgICAgICAgIC AgICAgICAgICAgICAgICAgICAgICAgICAgICAgICAgICAgICAgICAgICAgICAgICANCiAgICAgICAgIC AgICAgICAgICAgICAgICAgICAgICAgICAgICAgICAgICAgICAgICAgICAgICAgICAgICAgICAgICAgIC AgICAgICAgICAgICAgICAgICAgICAgICAgICAgICAN CiAgICAgICAgICAgICAgICAgICAgICAgICAgICAgICAgICAgICAgICAgICAgICAgICAgICAgICAgICAg ICAgICAgICAgICAgICAgICAgICAgICAgICAgICAgICAgICAgICAgICANCiAgICAgICAgICAgICAgICAg ICAgICAgICAgICAgICAgICAgICAgICAgICAgICAgIC AgICAgICAgICAgICAgICAgICAgICAgICAgICAgICAgICAgICAgICAgICAgICAgICAgICANCiAgICAgIC AgICAgICAgICAgICAgICAgICAgICAgICAgICAgICAgICAgICAgICAgICAgICAgICAgICAgICAgICAgIC AgICAgICAgICAgICAgICAgICAgICAgICAgICAgICAg ICANCiAgICAgICAgICAgICAgICAgICAgICAgICAgICAgICAgICAgICAgICAgICAgICAgICAgICAgICAg ICAgICAgICAgICAgICAgICAgICAgICAgICAgICAgICAgICAgICAgICAgICANCiAgICAgICAgICAgICAg ICAgICAgICAgICAgICAgICAgICAgICAgICAgICAgIC AgICAgICAgICAgICAgICAgICAgICAgICAgICAgICAgICAgICAgICAgICAgICAgICAgICAgICANCiAgIC AgICAgICAgICAgICAgICAgICAgICAgICAgICAgICAgICAgICAgICAgICAgICAgICAgICAgICAgICAgIC AgICAgICAgICAgICAgICAgICAgICAgICAgICAgICAg ICAgICANCiAgICAgICAgICAgICAgICAgICAgICAgICAgICAgICAgICAgICAgICAgICAgICAgICAgICAg ICAgICAgICAgICAgICAgICAgICAgICAgICAgICAgICAgICAgICAgICAgICAgICANCjw/sVMqH3bosZAj spM2G3jaPk3TIj0ZQE9jf6TxKCVwTThgriDtJcpQWo ClCENsGrpONwh9JBgzOA6LgOWwM2KkW1MaBUmyBY2VBEAsBQEpxYKgVFZkXDEfQsU0TNOgPKcuCG7HcH GhPTlzZPCyHRBaRsKtPRHbUFIhLYDbROSsELTLMXEgUFZfQiYaBUsbZY9Em9YfvCO3KGk+Xo4EMN6em7 IpXRxtHIGfJM0ahu8DIMfFBtZbH4PwcgQ8DKEdHNUj Mg3MQQSkNRJydERpFPSiQYISQyHnT7DzhD29RSQRSz9+MCqjliUfZdtIKkWbVEJsg5UiKDn5YG4IHKIj OYf2mEPdXAMpL1Bgu5FxEt08CCTgWynmY7AkBW1ebgQaHg0fqIfrWT2ANOQ8WZReHAaoHzWiNZLwHFs3 EPBXPEwYWdUeJ8Ity1EjGfJ8HTPjDtQpEZphTTLuZH deAG79vXzuVF4FLOEiFUEcED09RMJoAMMhEx9URt7HTsGhPY3vyn3YDmUxJJDfFsaJWzk4UFavFJ8YmF GbI9XvaGPyy4zWSgLuK8LVGAH9QRHgMi0RYTNnIcWrDFUyPXboFN9yYCDkRLFQcAueejC2ND5XUC1czz HyBD2EDzLhNw4eFw7JJxCeM5LdN2XzVEXeWZDQDSqx EK4KFUlkNV9jBX9Sj8VTzFBzvY1xro1APWNzOKAqJkxsyb5SEipkP4D4lGyhAIVoRtWsXQJIOBmcIH0K CTNkBRL8UOVqOVNxIOWPCaJzI32jMA0WD8Djk46hUpV0BUReYdIvNMroJK51aTcucvJgoJGsaJujVF7M Cj4+DQplbmRvYmoNCnhyZWYNCjAgMzMNCjAwMDAwMD AbFORgJhT7AfLiAz9WWDDcWOUaWIJgLzXjMUOrQFEkHCqoCPCvSLOvNELlLPBoBOMuZU1MEcGyNBGqID NpTYmhDNUkKCHsga5MSDAxMRVvWEZ8PcWeOOJpISQmRUmvVMXhPOToKMJ0CPEiLMDwFT6ZOzXjEULpGQ A6EQXuZRVnUUYvrz0WLBWxWTZfHPhfYDJlXSKgHSAs GMoyEADaHYI1RJP7RTPqVANaQQ3CHiAwHAApUTR6UiIjLEZcPLMsem7BCYRjVGBqANb6IuXiBNIsFTHm BKaePFFzEFYbOsE1SYLgSEAoZA3FPsZnQGYdPBU5FaVwEKSeNDIaut7FQVNdXTRgFDX1TgAgWQQgNTNs WYfuPNExLYZ5CgZ9ZSUvWFQxDJ3QYuKsLKPwJPO7Bu waOFOhZZElte1BRZXxTUXrMHheLORxMENzJILdQYuzBIMxYNR1FYV7KAEuWZUbDE3HBhGlAJYwXTC4Nh gvWCRyRHQibl1YYUArVQLoDnR0QZAkAJOwQMQcFThsXQCbGDE3GoJ7IWZzUMPrYL5YBxIjGJEwYZWgMA GxPVFjILDbuo3EIUStRMJ1WUBpQlTmWBQgKSGhXOkc YZCxBVOzXxN3LVYdGXLbIB3GZpLtBDDpKYFhFCAcGUOiZYTwho3OQQDqPZC1ZuJpJMOsSXUuFXMdAAmm FGKjFMSrIIi1VOJbLZRrNC3MSnEtHHYuJIYrDrIrGQWcDYXnfr9ZCUIhYGW9EkW1COLlJGBdXZVwKTti ZTIoJBCxBAM0BTGjNFWwUT9RCcCgQWPsEHE5QaYnZT AlLAEsve4NKTBvIIC5PJE6JzVhPYOlFGEbDVzuWJJyGGU9SwZbEOShZWWmCE3UXiDjSSqtKMWOKmi0PN jxV0u3UGQhKe8AA4Ghk2QhPwZjWXLURPufJB5avfVkQYRfIt5CO6pOWygyTEU2UrB4O0SlULOfPYEeVC R8GjO3DNG8IjFtNsE9Fj6zGPZdBOniHVlnOtLnOhA7 HQV9QzxqNLMdVeO7EMHfOYCdEfJfSB5OTg7MOfI6YSH7qOHzMm7GZII3JWDXGxHnOY2SCEm= ID Date Data Source HCG SERUM QUALITATIVE 10/29/2019 12:00:00 AM EDT eCW1 ([facility]) Name Value Range Interpretation Code Description Data Diane rce(s) Supporting Document(s) NEGATIVE NEGATIVE HCG, SERUM QUALITATIVE eC W1 ([facility]) ID Date Data Source HEPATITIS B SURFACE ANTIGEN 10/29/2019 12:00:00 AM EDT eCW1 ([facility]) Name Value Range Interpretation Code Description Data Diane rce(s) Supporting Document(s) NEGATIVE NEGATIVE HEPATITIS B SURFACE ANTIG EN eCW1 ([facility]) ID Date Data Source HEPATITIS C ANTIBODY INDEX 10/29/2019 12:00:00 AM EDT eCW1 ( [facility]) Name Value Range Interpretation Code Description Data Diane rce(s) Supporting Document(s) 0.1 <0.8 HEPATITIS C VIRUS KAREEM INDEX eC W1 ([facility]) ID Date Data Source SYPHILIS ANTIBODY (RPR SCREEN) 10/29/2019 12:00:00 AM EDT eC W1 ([facility]) Name Value Range Interpretation Code Description Data Diane rce(s) Supporting Document(s) NONREACTIVE NONREACTIVE SYPHILIS eCW1 ([facility]) ID Date Data Source Comprehensive Metabolic Profile (CMP) 10/29/2019 12:00:00 AM EDT eCW1 ([facility]) Name Value Range Interpretation Code Description Data Diane rce(s) Supporting Document(s) 19 7-18 BLOOD UREA NITROGEN eCW1 ([facility]) 79 70-100 GLUCOSE, FASTING eCW1 ([facility]) > 60.0 >60 GLOMERULAR FILTRATION RATE eCW 1 ([facility]) 0.70 0.55-1.30 CREATININE FOR GFR eCW1 ([facility]) 4.1 3.5-5.1 POTASSIUM SERUM eCW1 ([facility]) 138 136-145 SODIUM LEVEL eCW1 (Replaced by [facility]) 102 98-107 CHLORIDE LEVEL eCW1 ([facility]) 30 21-32 CARBON DIOXIDE LEVEL eCW1 ([facility]) 9.5 8.5-10.1 CALCIUM LEVEL eCW1 ([facility]) 20 7-37 AST/SGOT eCW1 ([facility]) 34 12-78 ALT/SGPT eCW1 ([facility]) 80 45-117 ALKALINE PHOSPHATASE eCW1 ([facility]) 7.4 6.4-8.2 TOTAL PROTEIN eCW1 ([facility]) 0.6 0.2-1.0 BILIRUBIN,TOTAL eCW1 ([facility]) 3.8 3.2-5.2 ALBUMIN eCW1 ([facility]) 1.06 1.00-1.93 ALBUMIN/GLOBULIN RATIO eCW1 ([facility]) ID Date Data Source CHLAMYDIA & GC DNA AMPLIFICAT 10/29/2019 12:00:00 AM EDT eCW 1 ([facility]) Name Value Range Interpretation Code Description Data Diane rce(s) Supporting Document(s) Chlamydia trachomatis rRNA [Presence] in Unspecified specimen by Probe and target amplification method NEGATIVE NEGATIVE CHLAMYDIA DNA AMPLIFICATION eCW1 ([facility]) ID Date Data Source CBC with Differential 10/29/2019 12:00:00 AM EDT eCW1 ([facility]) Name Value Range Interpretation Code Description Data Diane rce(s) Supporting Document(s) 5.5 4.0-10.0 WHITE BLOOD COUNT eCW1 ([facility]) 4.29 4.00-5.40 RED BLOOD COUNT eCW1 ([facility]) 38.8 36.0-47.0 HEMATOCRIT eCW1 ([facility]) 13.5 12.0-15.5 HEMOGLOBIN eCW1 ([facility]) 90.4 80.0-96.0 MEAN CORPUSCULAR VOLUME e CW1 ([facility]) 31.5 27.0-33.0 MEAN CORPUSCULAR HEMOGLOB IN eCW1 ([facility]) 34.8 32.0-36.5 MEAN CORPUSCULAR HGB CONC eCW1 ([facility]) 12.3 11.5-14.5 RED CELL DISTRIBUTION WID TH eCW1 ([facility]) 324 150-450 PLATELET COUNT, AUTOMATED eCW1 ([facility]) 27.6 24.0-44.0 LYMPH % eCW1 ([facility]) 56.1 36.0-66.0 NEUTROPHILS % eCW1 ([facility]) 6.9 0.0-3.0 EOS % eCW1 ([facility]) 7.7 0.0-5.0 MONO % eCW1 ([facility]) 1.3 0.0-1.0 BASO % eCW1 ([facility]) 3.1 1.5-8.5 NEUTROPHILS # eCW1 ([facility]) 0.4 0.0-0.8 MONO # eCW1 ([facility]) 1.5 1.5-5.0 LYMPH # eCW1 ([facility]) 0.1 0.0-0.2 BASO # eCW1 ([facility]) 0.4 0.0-0.5 EOS # eCW1 ([facility]) ID Date Data Source [id number] 08/25/2019 01:12:45 PM [facility] Name Value Range Interpretation Code Description Data Diane rce(s) Supporting Document(s) Progress Note [facility] GMWNWb1wQrJDPiVz09/RXKtxLDSyc0ClHFcbYKq4LUqqNZFcL9DqFPU8fR1iXQU0IUkMBmPhGpQaEaTa lbm [file] LTL8LZQbZ5SmZ2N7Zde8PLXrApE3N7RbFyBsMxWp IS9ESh0RMtW6DUX8gXCdQo3AWrn2BNECBuOiEM0TEQp= ID Date Data Source [id number] 08/25/2019:12:39 PM [facility] Name Value Range Interpretation Code Description Data Diane rce(s) Supporting Document(s) Progress Note [facility] NKOLEo4uGjOBKpLe18/IDRtyCTJie7UiXMwrQJx0UQodHGQcG4WiLFR6oG8xQWB2IGtMOyLmNyOuRvLc lbm FiHgpZXqEqGVEoGqnBGsTrRIlbJvtqdYHrWQ6NmLF4GIGnI06dKUCwLXVwS3EkYCZ1PDr+Df4FRRIhiZ UrYI9NAhhH1FqwQdqUGi++6d2URc64nknquqjBB1KKXovQOBVHFXGNnYEptX9JpiVnDZVM+9dvn26/l+ AWj80ismVIDtd8396Pj+qLnww1H2YUcjPAMO3w+DO2 SvQvxV//PhnXeHs95ngOHvRqfLIE4qKF6X6jR9/h9jtz1tdtvzLZe8MHfLyyV05SDOCtw4zOB00Ay/5Y QX5xOhT83sH0/+jg+FDoOJbahO9/+kmc/g43VgQzveSQRFPxqamaT9oFP+YQRvzTMIlPuNVTXfZ95dMc AGoB3azU3keeg6O7wzBqjaEg+SRD+aSuy7rkki1Nt7 YrWpUAwvMuYQKFsAn4DcBZuA3d6EZhhbXyJ7mXuzfKC7yYWs8aKD7h+4BSlzOE9SGk6c9nyTR8dnLvOI LYL8pBEEy52S1zPc2omER7y6Knvn+dZJwt+DtJP/oyqdEbtuZbEbGmKVcmPwWXfUGWI8ujepypagMeQM H94oSw5L8wVWI0gyDLajYIa4gVtI6CYnI59rIPUiKt WRWAsxyQzX0+SWjvrsIO15GtJO9On6MvUdg39Pd7uLYlkAAn0sozQGFu6N5Ei4/mrNNni7q9eX/lsJ6l cHbv0CjK5guElF/MB3r2Y4XWt+IqK9x/c3wqdo/dAVmX0eIFh3DUHgudPRVFgmpNjLbREkAYSUShoiLK 7KPz6vs8ndoLm7HdJTJos+ICuR1Ak8RROIoWaAcFB9 IFvp+FWao4Nfteu568RcKbsgbBoRmv2VQ77wOj5cZl3Sr8x3mfKAazEfHpwKz2mWLuS2LJAlieS+shc/ q1o4hTAHqUaxh7kszh+m0JVoX6pmTOLr19Nh9zRpz+lyrrxjAYrUi1TfW6O73IXmCWmJ9PBPH/R7Pph/ EyqaxnDkkgLaBGxMdqsrCfymqu2ebA2xblygEJI+pi [file] ICAgICAgICAgICAgICAgICAgICAgICAgICAgICAgICAgICAgICAgICAgICAgICAgICAgICAgICAgICAg ICAgICAgICAgICAgICAgICAgICAgICAgICAgICAgIC AgICAgDQogICAgICAgICAgICAgICAgICAgICAgICAgICAgICAgICAgICAgICAgICAgICAgICAgICAgIC AgICAgICAgICAgICAgICAgICAgICAgICAgICAgICAgICAgICAgICAgICAgICAgDQogICAgICAgICAgIC AgICAgICAgICAgICAgICAgICAgICAgICAgICAgICAg ICAgICAgICAgICAgICAgICAgICAgICAgICAgICAgICAgICAgICAgICAgICAgICAgICAgICAgICAgDQog ICAgICAgICAgICAgICAgICAgICAgICAgICAgICAgICAgICAgICAgICAgICAgICAgICAgICAgICAgICAg ICAgICAgICAgICAgICAgICAgICAgICAgICAgICAgIC AgICAgICAgDQogICAgICAgICAgICAgICAgICAgICAgICAgICAgICAgICAgICAgICAgICAgICAgICAgIC AgICAgICAgICAgICAgICAgICAgICAgICAgICAgICAgICAgICAgICAgICAgICAgICAgDQogICAgICAgIC AgICAgICAgICAgICAgICAgICAgICAgICAgICAgICAg ICAgICAgICAgICAgICAgICAgICAgICAgICAgICAgICAgICAgICAgICAgICAgICAgICAgICAgICAgICAg DQogICAgICAgICAgICAgICAgICAgICAgICAgICAgICAgICAgICAgICAgICAgICAgICAgICAgICAgICAg ICAgICAgICAgICAgICAgICAgICAgICAgICAgICAgIC AgICAgICAgICAgDQogICAgICAgICAgICAgICAgICAgICAgICAgICAgICAgICAgICAgICAgICAgICAgIC AgICAgICAgICAgICAgICAgICAgICAgICAgICAgICAgICAgICAgICAgICAgICAgICAgICAgDQogICAgIC AgICAgICAgICAgICAgICAgICAgICAgICAgICAgICAg ICAgICAgICAgICAgICAgICAgICAgICAgICAgICAgICAgICAgICAgICAgICAgICAgICAgICAgICAgICAg ICAgDQogICAgICAgICAgICAgICAgICAgICAgICAgICAgICAgICAgICAgICAgICAgICAgICAgICAgICAg ICAgICAgICAgICAgICAgICAgICAgICAgICAgICAgIC KwQOJsPSNtEZFsTILgWEy6O7gcBKGvQLNuOZ7vVWd1Zb6+BYyYNhYnMHZ3baAulD9DXX7wf7WkGCrkRZ Ckj5WlCHm6GN1ZWSOcCYpnIH6MXPmzdx9AUSBjHJOdtSMFb5vsRiSyFVU2GMWgWqkxVJ7MRPGuW7mrqa EbATSiHNAGZFyiNMPVKDhiWEAOUX5FDtEyM3PqkA01 IDMNCj4+NZbicuMjIprXTnJ1VOKmc0BsYAk1VW6KJWSzAoaec8NjSkTuLGOOFDbwJE8LOPL9CJQvBDKe Zp6YGMSmM540xoWzPI9LFm5NQkCoFY4ukh5LDeFcQGNtBzyYZpe4THkvEL2WiLJjUNlJgg4flfTsrvOR q1XnlrMlcZDEQB7kkqWJQSJvlVKshullTALcYHEuNi 28KoKmCIgtNXY3IeObIQ3zUTyuCQ8FHFE6JIrqTLWvHKTtE5qAKaLkTRL9SuSdhOwsYO4UImMqV8Fgor VudCAyOSAwIFINCj4+HLkakvNiWuaZQiSdROOfl5VnBUl8ML5OUCBgETixAO2SBMAhvV6rWIyuBD3AUc BeTsZsSDILDsEsB66vbHPeIXb9Z6UnVnEpMTFlXokw ZXMgPDwvTmFtZXMgWyBdDQogID4+ID4+PZutTK0QJDegqbOfASLbGv7TGFQrYWWgMS5fGAVaSWVpK8J3 rIshDALNXgXyX1fdvsftPQ2lGQVuF064cRpajtYmZBI4YRFmDe1RINIdJMV2VMHoqWEoPjvzPVNSJJrq BH1ExEOsQVN9dB0oMAszPGAeDZMeZ5uYNeZtvHwtUR 51bGwgbnVsbCBdDQo+Vd4USD3na0JnVKx9khQtHBqwNIPkNJneZWSdNHDwXJCbNAV5PHK9HCGVYwQvOU EoWEPxHKisDNFhOUApeb7IOFLwDGKyOWVdTtSzHPPjTLHvRKwvIVXqRAB0KOokRZNgNGIoPP2VUvOsYN TzCPYfKMlzJZJxVMSzsm4FKMAnBPOkUlQ6LgXqXBCi TSAhXMojKGGxUCHtYgjdOZUiOOGiPM6USfTcVMBkZHUbGSTaWPSxTBQetk0RHUSwKIRqGgY7EWXuIHDr VXBfYBehWIExCCP5BzN1FEMiSJLyCH7XJpYhJABdURy8XuMgNWHrYMBysn4MMEXaCFUnVOF4KEOmIHMz WACbKYfeLCPaFPQ8VYf4HSSdKTZuFO4RUjTaWYBeCT v6XgRiKBUiUWXwrj3RQQUvFRDaATneOJMqPRFbNUTeMDzmOWBuPFJ1TFDqQSInKKGaAJ7UJdQxWSKtDN UaVHrqOCCrQXZrkb7KUIFdQUCgPBJ4TLSwKKQcLZUpWJruAJLcSJLoGJv0PYLxNAFzHM1RUvMqNDOpZc JoVGWqMXPaWSQskg6WKLPiPHCpOcYaBkPnOOTySHVh GWvgFNRaBEGcAAi2HLBeNEJuRL6VJfYqMXXdJnD3ErOvTLAsTKDrxp4HZWHlYKUxOfSwGxHfQZNaALLq INqbSVSwTUJmJidjTHNtEPDaLG2QXeBxEULlPqU6AkUtGSBaLQLgyp1ZZOXlHRPbBBdpWNOoLLVdESLf RUidOWWoJZD0RHRlNBLhYOVtBT6UBtEeIERkXcS7Kv UcTQZbPSCwyj6ALKRgFBHuEzr4VyMpGGIvWSQqZVjlQWIfFTC9BWS6SCZjBQPnFV7UWpZpYPRoUwaaRY UvORJwHKJewk3DaWUudGegrm4DUDoUWs8XoDcuFPQhKVgeSh7inJDjPUErBVPKSi2DssRmYHVqPTLPVZ aqQFUpIDXsUkffBHSnDqx1SzC1MTkmOFCvLVhxPIa2 SFDnQFFkRfP1TlN2WTT6SXGtZdDuXRK9DvQrHAIdTGE9HCLeTaGeBkT+DW0xGCg+Ek8Nq6HcxtM8daFn IGihJkD6Mm3EKEWSV5FRWl== ID Date Data Source [id number] 07/27/2019 02:23:07 PM [facility] Name Value Range Interpretation Code Description Data Diane rce(s) Supporting Document(s) Progress Note [facility] RKVWGj6kVoUEVzEu23/PGLgbVIBfn6TrHZqkVFb8GSgbAMFsC6DoSMT8mS6uCTY1XVkSNfKlRnMrNuQw m [file] VzMbWhTRM4IhZ2XNHpKtA0VyNdXTL+TS9fCDx+Ev4My9PkviX0pyXgKAlrAjA0Ky3KLQKEU6TVGl== ID Date Data Source [id number] 07/27/2019 02:22:37 PM [facility] Name Value Range Interpretation Code Description Data Diane rce(s) Supporting Document(s) Progress Note [facility] YMGJZh1sYuOEFpAj55/YRVxkTWReq6EdSQpsBSz3QEavWLOeK7GnGTG1vE9vMXU5QMzTBhDvMvCqPvAr lbm [file] UEUkVRF2TGWlENYqN4EcABZ3ZoFqQS3TXj1RCpK3BOX1vJKhXn6LAnR8QHTLLaJmFL2COQf= ID Date Data Source [id number] 07/21/2019 09:22:51 AM [facility] Name Value Range Interpretation Code Description Data Diane rce(s) Supporting Document(s) Progress Note [facility] OBEJJe4yFgUFWrSt55/UPTbkFEXif9IrYIpbBDt2WTpeQCVpJ6SvWUJ1nB0mZBS6PQyOMgTbMvLoFZR9 lbm [file] ICAgICAgICAgICAgICAgICAgICAgICAgICAgICAgIC AgICAgICAgICAgICAgICAgICAgICAgICAgICAgICAgDQogICAgICAgICAgICAgICAgICAgICAgICAgIC AgICAgICAgICAgICAgICAgICAgICAgICAgICAgICAgICAgICAgICAgICAgICAgICAgICAgICAgICAgIC AgICAgICAgICAgICAgDQogICAgICAgICAgICAgICAg ICAgICAgICAgICAgICAgICAgICAgICAgICAgICAgICAgICAgICAgICAgICAgICAgICAgICAgICAgICAg ICAgICAgICAgICAgICAgICAgICAgICAgDQogICAgICAgICAgICAgICAgICAgICAgICAgICAgICAgICAg ICAgICAgICAgICAgICAgICAgICAgICAgICAgICAgIC AgICAgICAgICAgICAgICAgICAgICAgICAgICAgICAgICAgDQogICAgICAgICAgICAgICAgICAgICAgIC AgICAgICAgICAgICAgICAgICAgICAgICAgICAgICAgICAgICAgICAgICAgICAgICAgICAgICAgICAgIC AgICAgICAgICAgICAgICAgDQogICAgICAgICAgICAg ICAgICAgICAgICAgICAgICAgICAgICAgICAgICAgICAgICAgICAgICAgICAgICAgICAgICAgICAgICAg ICAgICAgICAgICAgICAgICAgICAgICAgICAgDQogICAgICAgICAgICAgICAgICAgICAgICAgICAgICAg ICAgICAgICAgICAgICAgICAgICAgICAgICAgICAgIC AgICAgICAgICAgICAgICAgICAgICAgICAgICAgICAgICAgICAgDQogICAgICAgICAgICAgICAgICAgIC AgICAgICAgICAgICAgICAgICAgICAgICAgICAgICAgICAgICAgICAgICAgICAgICAgICAgICAgICAgIC AgICAgICAgICAgICAgICAgICAgDQogICAgICAgICAg ICAgICAgICAgICAgICAgICAgICAgICAgICAgICAgICAgICAgICAgICAgICAgICAgICAgICAgICAgICAg ICAgICAgICAgICAgICAgICAgICAgICAgICAgICAgDQogICAgICAgICAgICAgICAgICAgICAgICAgICAg ICAgICAgICAgICAgICAgICAgICAgICAgICAgICAgIC GlZIKcFGCiXAPaVQJzVGOeULBsLIUkENYcNGRiUDCqMDDcSGPcHBNzSGu8L7kqECCtTXStOS0jWIh6Lj 8+DIxDJzBkPCF8sfHbiY0PHD8an8GxTFssQPXah8NsVSh3ZB9CCIJwOKscXW2WGArrsx0SPWYcRGIwdV CEi2msXhNwIOR5DHVePuclJH9PXLKaQ9cyjqMtAGNj ITIIQYaoMODTUVcfJDUVGMZaJPNrRzDcGvHdRMNgMGLyVPDRAY5ZVmIpD1FwuA43ZBRIUr7+DQplbmRv JskUQyNdNMLkp9WoBMs6FJ0DOQUlTenir3ZuLcFuZLLJUVydSY3NOMY4ZBRuLBGqVj8SQWXiV985mfOr PN1VZi4AOrFxQT7sjt6RScYcAXRdRbtQStg3DDfiZO 8YzZAyHIxRfk7gtrVsbxGJo8WxnmEirDEYpYZ0KY6qVJixBX4WJKL8REHvSsmiKbOzFHYcYcblDGSVRH eUJeJhC4Did3WeVaN9GPVnDqUiBCjqEUXfSEuiSV77xLnmSA8SMZPfQQHrJX67TCVeQYDhLw8KLp6SOv TyDR3joj7QZmAhIURgYrsCTfg8ZBgmTE9SsZBzH0Zs tZRvc2bZGyUfO0NXWJY0WYLfEz0RVOGiCkGoRFKhJCaoBB3qIOVjJNHExYfrpaF9CQ4BWO2pkySnMC4V VlYkVq5rDl8JIaKzN8JqZ4VeNWBpMTNAGZojAE4EEYezUK9bMA8Ug0KRiGBjeZ5iwq6VNAIfEQGrKizm cq4VAgvjF2P1yHitDDEvLsYfULOCAPkfNR4IYDRuUC B5RRUvSYByNAOMDsSeH27gUD8PR2Hnv86rPcI8CYOfUaIvJJeeIG18wFxntwUleENqqBlsFQ4UKk4+DQ ljlkHeXtmMBhcrZNEJKgQuCySCDdHgMJExDPPjXYEcPvG3OuMzBa5NBIBbRPGqZZQtDrQsKJTiJQSkMZ kgRRCnYMg7ZjEkNNLgDROiIW4QJiLmPSKiHTx5XSpi KIZsKRZqqv6MDLFiLSTeCXC9ZkBhBPZtVCVlUAbcRKJyYFIsWrs8WVDlWSQiKX2ZRiGdZLSaPQR0OFkw SAXxOSUsgz7CCCEfOYJnCLctTVQfUUSaFCWzIQajUGBsUJL5VQP6IOLaEIZsKC8ZCcBcTXWmZQW5OHxr ITQqYHFnic7IHILwEFJfYXq7SzCdZWSkTTYhBKqjSA KcLUJaTNXhGRTsJVZaYZ1TUwZxCDIzVMMzTZqeSUAmPUIjgt2TPRFqAFYkXHa9KPQqSXEnPZPrSXrdKM JcGMI4RKQ9EDIuNQKbOH8OBjXhPCXcUBY7SpIlEJIhFGUgdx0VWBAaBZSsQoN6VNEmWTIjMXZtZNmxFU OmXZF3LZS7IYVnUWFaNR5DQpFyDMTyDVzwLfRuVYTn ZUPzsp1SRIBmZPUwQUFnGNVwGUNnFZQxEWrqRVMxOJL5QGc2SXGzGZGeVP2JUsJuCHRkJZd7FWIkCZTd QDPywx3EFOBvYKGfMBb5DEOaMFJzTFYjNBiyUVIdBWFmMehbMSWiUQBrML4WEbPqSWPmHSX5KCGsMNEo KQPfmp2XAQLiGUD3EXF8OPTmUZMnPMXzAXcqVUMuYP S8DDJ0CBTqVXEoNT8OFcCcGIBkZGE4UCScLJYqXLPfjh1LGDOoDUA0UfU8ZQQaMPMtFQNpUIgrREGkVM e8JeF7DLUfAFTsWN7HBhAcCRNuTVFpQVarHIApECOeqr0VTGPxTPJ6ZoGmAKGuELBrQBRpPLoiQCReZE z8GoZpXLCpFXIdQS6CZtVnKHHzNFq7BECtPUGgGNKv ap7IiBUbiDpjvj9SFJuAYg2FnRstDHJ8FEwgFg8phTNpAqFxCAWPTa1UfwTzDWVmRTDICHirYOIkWFO4 NVU2K5LuQZM3CkV9KBPzZUSfDZJdEoYuWHqfMBW8ZoO2TmOiHty2PrB7IWGuMau9ATMcOJDvZGSjPCV3 K2IsOLO+EA8cPTs+Az5Wu2KqowL2bqVpACu0KTE4CL5WQZPJI5XQNn== ID Date Data Source [id number] 09/14/2019 08:13:08 AM EDT [facility] Service Cmnt XXX-Imp : Acid fast Stn XXX : No Acid fast bacilli seen on Fluorochrome stain.Microorganism XXX Cult : No growth (qualifier value) Name Value Range Interpretation Code Description Data Diane rce(s) Supporting Document(s) ID Date Data Source [id number] 07/24/2019 11:59:35 AM EST [facility]mnt XXX-Imp : Gram Stn XXX : Un able to perform testMicroorganism XXX Cult : 2Burkholderia multivorans (organism)3Normal stephanie Name Value Range Interpretation Code Description Data Diane rce(s) Supporting Document(s) ID Date Data Source [id number] 06/15/2019 11:26:12 AM EST [facility] Name Value Range Interpretation Code Description Data Diane rce(s) Supporting Document(s) Progress Note [facility] BRFNYt8cIkLPNlOy29/HNYqlDIIlo9UcDXxkGVf3IOkoQPUwH4UlDCT0mN8iYYF0MOeSNlGjRVdnUcTt [facility] [file] 9GDQo= ID Date Data Source [id number] 06/15/2019 11:24:25 AM EST [facility] Name Value Range Interpretation Code Description Data Diane rce(s) Supporting Document(s) Progress Note [facility] PQTIQe7nWyQIOvYj09/EDSjlTQAeb1VoZVryTCt7EEovRAXgG4PzJOB5jQ8kKKP2DRiKYaVzRNptFaKr lbm [file] 9GDQo= Procedure Social History Code Duration Value Status Description Data Source(s ) Alcohol intake 02/22/2020 12:00:00 AM EDT Current non-d joshua of alcohol (finding) completed Current non-drinker of alcohol (finding) [facility] Tobacco use and exposure 02/22/2020 12:00:00 AM EDT Never used co mpleted Never used [facility] Smoking 02/22/2020 12:00:00 AM EDT Never smoker completed [facility] Alcohol intake 11/09/2019 12:00:00 AM EDT Current non-d joshua of alcohol (finding) completed Current non-drinker of alcohol (finding) [facility] Smoking 11/09/2019 12:00:00 AM EDT Never smoker completed Never [facility] Health system Alcohol intake 08/16/2019 12:00:00 AM EST Current non-d joshua of alcohol (finding) completed Current non-drinker of alcohol (finding) [facility] Smoking 08/16/2019 12:00:00 AM EST Never smoker completed Never [facility] Alcohol intake 08/16/2019 12:00:00 AM EST Current non-d joshua of alcohol (finding) completed Current non-drinker of alcohol (finding) [facility] Alcohol intake 07/20/2019 12:00:00 AM EST Current non-d joshua of alcohol (finding) completed Current non-drinker of alcohol (finding) [facility] Smoking 07/20/2019 12:00:00 AM EST Never smoker completed Never [facility] Vital Signs ID Date Data Source UNK Name Value Range Interpretation Code Description Data Source(s) Diastolic blood pressure 58 mm[Hg] 58 mm[Hg] W1 ([facility]) Systolic blood pressure 104 mm[Hg] 104 mm[Hg] e CW1 ([facility]) Body temperature 98.2 [degF] 98.2 [degF] eCW1 ( [facility]) Respiratory rate 16 /min 16 /min eCW1 ([facility]) Heart rate 79 /min 79 /min W1 ([facility]) Body mass index (BMI) [Ratio] 21.76 kg/m2 21.76 kg/m2 W1 ([facility]) Body height 62 [in_us] 62 [in_us] W1 ([facility]) Body weight Measured 119 [lb_av] 119 [lb_av] eC W1 ([facility]) ID Date Data Source [id number] 03/05/2020 04:42:25 PM EDT [facility] Name Value Range Interpretation Code Description Data Source(s) WEIGHT RECORDED 118.25 lb 118.25 lb [facility] Body height Measured 62.13 in 62.13 in [facility] ID Date Data Source [id number] 09/14/2019 08:13:17 AM [facility] Name Value Range Interpretation Code Description Data Source(s) WEIGHT RECORDED 115.6 lb 115.6 lb [facility] Body height Measured 62.13 in 62.13 in [facility] ID Date Data Source [id number] 06/15/2019 11:26:12 AM [facility] Name Value Range Interpretation Code Description Data Source(s) WEIGHT RECORDED 113 lb 113 lb [facility] Body height Measured 61.73 in 61.73 in [facility] ID Date Data Source [id number] 08/25/2019 01:12:39 PM [facility] Value Range Interpretation Code Description Data Source(s) WEIGHT RECORDED 112 lb 112 lb [facility] Body height Measured 61.81 in 61.81 in [facility] ID Date Data Source [id number] 08/25/2019 01:12:45 PM [facility] Value Range Interpretation Code Description Data Source(s) WEIGHT RECORDED 113.25 lb 113.25 lb [facility] Body height Measured 62.48 in 62.48 in [facility] Patient Treatment Plan of Care Planned Activity Planned Date Details Description Data Source (s) albuterol (PROVENTIL HFA) inhaler 2 puff 02/22/2020 02:45:00 PM EDT [facility] 60 ACTUAT Fluticasone propionate 0.5 MG/ ACTUAT / salmeterol 0.05 MG/ACTUAT Dry Powder Inhaler 11/09/2019 12:00:00 AM EDT [facility] Uuqcvqra-Pyhqdfx-Hrgvfg&Ivacaf 100-50-75 & 150 MG Oral Tablet Therapy Pack (Trikafta) 09/14/2019 12:00:00 AM EDT [facility] Albuterol 0.83 MG/ML Inhalant Solution 09/14/2019 12:00:00 AM [facility] Albuterol Sulfate HFA 108 (90 Base) MCG/ ACT Inhalation Aerosol Solution (PROVENTIL HFA;VENTOLIN HFA) 09/14/2019 12:00:00 AM [facility] Azithromycin 250 MG Oral Tablet 09/14/2019 12:00:00 AM [facility] Dornase Isaak 1 MG/ML Inhalant Solution 09/14/2019 12:00:00 AM [facility] MVW Complete Formulation D5000 Oral Capsule 09/14/2019 12:00:00 AM [facility] Amylases [id number] UNT / Endopeptidases 760 00 UNT / Lipase 47758 UNT Delayed Release Oral Capsule 09/14/2019 12:00:00 AM [facility] Sodium Chloride 1.2 MEQ/ML Inhalant Solution 09/14/2019 12:00:00 AM [facility] Tobramycin 60 MG/ML Inhalant Solution 09/14/2019 12:00:00 AM [facility] Vitamin K 1 5 MG Oral Tablet 09/14/2019 12:00:00 AM [facility] 60 ACTUAT Fluticasone propionate 0.25 MG /ACTUAT / salmeterol 0.05 MG/ACTUAT Dry Powder Inhaler 09/14/2019 12:00:00 AM [facility] albuterol (PROVENTIL HFA;VENTOLIN HFA) inhaler 2 puff 07/20/2019 03:00:00 PM [facility] 60 ACTUAT Fluticasone propionate 0.25 MG /ACTUAT / salmeterol 0.05 MG/ACTUAT Dry Powder Inhaler 07/20/2019 12:00:00 AM [facility] Minocycline 100 MG Oral Capsule 07/14/2019 12:00:00 AM [facility] Tobramycin 60 MG/ML Inhalant Solution 07/01/2019 12:00:00 AM [facility] Lidocaine 25 MG/ML / Prilocaine 25 MG/ML Topical Cream 02/18/2019 12:00:00 AM [facility] 60 ACTUAT Fluticasone propionate 0.25 MG /ACTUAT / salmeterol 0.05 MG/ACTUAT Dry Powder Inhaler 02/18/2019 12:00:00 AM [facility] Lancets (FREESTYLE) lancets 08/25/2018 12:00:00 AM [facility] FREESTYLE LITE test strip 08/25/2018 12:00:00 AM [facility]
[2020-07-14] MEDS ORDERED: NS 1,000 ML IV ONE (23:00)
[2020-07-14] MEDS ORDERED: KETOROLAC 30 MG/ML 1ML VIAL IV ONE (23:00)
[2020-07-14] MEDS ORDERED: ISOVUE-370 76% 100ML VIAL As Ordered ONE (23:06)
[2020-07-14 23:46] LABS: BASO # 0.1 10^3/uL (0.0-0.2); BASO % 0.7 % (0.0-1.0); EOS # 0.6 10^3/uL (0.0-0.5); EOS % 5.9 % (0.0-3.0); HEMOGLOBIN 12.3 g/dl (12.0-15.5); LYMPH # 1.8 10^3/uL (1.5-5.0); LYMPH % 19.3 % (24.0-44.0); MEAN CORPUSCULAR HEMOGLOBIN 30.1 pg (27.0-33.0); MEAN CORPUSCULAR HGB CONC 33.2 g/dl (32.0-36.5); MEAN CORPUSCULAR VOLUME 90.7 fl (80.0-96.0); MONO # 0.8 10^3/uL (0.0-0.8); MONO % 8.2 % (0.0-5.0); NEUTROPHILS # 6.1 10^3/uL (1.5-8.5); NEUTROPHILS % 65.6 % (36.0-66.0); PLATELET COUNT, AUTOMATED 240 10^3/uL (150-450); RED BLOOD COUNT 4.08 10^6/uL (4.00-5.40); WHITE BLOOD COUNT 9.3 10^3/uL (4.0-10.0)
[2020-07-15 00:12] LABS: ALBUMIN 3.5 GM/DL (3.2-5.2); BILIRUBIN,DIRECT 0.1 MG/DL (0.0-0.2); BILIRUBIN,TOTAL 0.4 MG/DL (0.2-1.0); TOTAL PROTEIN 6.5 GM/DL (6.4-8.2)
--- NOTE | 2020-07-15 00:22 | REPVR ---
PROCEDURE INFORMATION: Exam: CT Abdomen And Pelvis With Contrast Exam date and time: 07/14/2020 10:55 PM Age: 25 years old Clinical indication: Abdominal pain; Flank; Other: Bilat; Additional info: Bilateral flank pain/suprapubic pain TECHNIQUE: Imaging protocol: Computed tomography of the abdomen and pelvis with intravenous contrast. Axial, coronal and sagittal reformatted images were created and reviewed. Radiation optimization: All CT scans at this facility use at least one of these dose optimization techniques: automated exposure control; mA and/or kV adjustment per patient size (includes targeted exams where dose is matched to clinical indication); or iterative reconstruction. Contrast material: ISO; Contrast volume: 100 ml; Contrast route: INTRAVENOUS (IV); COMPARISON: CT ABD/PEL W/IV ORAL CONTRAS 10/30/2018 11:53 PM FINDINGS: Lungs: Mild linear atelectasis and/or scarring in the right middle lobe and lingula with associated bronchiectatic change. Liver: Unremarkable. Gallbladder and bile ducts: No radiodense gallstones. No biliary ductal dilatation. Pancreas: Atrophic pancreas with associated coarse calcification and irregular biliary ductal dilatation, compatible with chronic pancreatitis. Several small associated cystic lesions, measuring up to 1.7 x 1.4 cm in the uncinate process and 1.8 x 1.4 cm in the tail, similar to prior and also likely related to chronic pancreatitis. Spleen: Unremarkable. Adrenal glands: Normal. No mass. Kidneys and ureters: Mild prominence of the right renal collecting system with a 1.4 x 0.8 cm calculus in the right renal pelvis. Nonobstructing bilateral renal calculi. Stomach and bowel: Moderate amount of retained stool in the colon. No obstruction. No bowel wall thickening. No pneumatosis. Appendix: Status post appendectomy. Intraperitoneal space: No free fluid. No organized fluid collection. No free air. Vasculature: Unremarkable. No aneurysm. Lymph nodes: No pathologically enlarged lymph nodes. Urinary bladder: Mild circumferential urinary bladder wall thickening, likely secondary to underdistention. Reproductive: 2.4 cm dominant right ovarian follicle. Bones/joints: No acute osseous abnormality. Soft tissues: Unremarkable. IMPRESSION: 1. Mild prominence of the right renal collecting system with a 1.4 x 0.8 cm calculus in the right renal pelvis. 2. Mild circumferential urinary bladder wall thickening, likely secondary to underdistention. Correlate with urinalysis to exclude cystitis. 3. Additional findings, as above. Electronically signed by: Nhan Obrien On 07/15/2020 00:22:04 AM
[2020-07-15] MEDS ORDERED: BACT800T5 PO (00:40)
[2020-07-15] MEDS ORDERED: BACTRIM 160MG/800MG DS TAB PO ONE (00:45)
[2020-07-15 00:49] VITALS: BP 121/71
--- NOTE | 2020-07-15 09:22 | ED PDOC ---
Post-Departure Follow-Up ct abd/p faxed to avinash thomas for fu To Chase MD Jul 15, 2020 09:22
== END 2020-07-15 00:53 | disposition home or self-care (01) ==
LOC: M ED 21:22
DX: N30.90 Cystitis, unspecified without hematuria (principal); E11.9 Type 2 diabetes mellitus without complications; E84.9 Cystic fibrosis, unspecified; Z79.899 Other long term (current) drug therapy; Z88.1 Allergy status to other antibiotic agents
CPT/HCPCS: 74177; 80047; 80076; 81001; 83605; 83690; 84702; 85025; 87086; 96361; 96374; 99284; J1642; J1885; Q9967

== ENCOUNTER → 2020-08-25 | Outpatient (REF) | payer MEDICARE, OTHER ==
[~2020-08-25] MED LIST changes: +BACT800T5 PO; +HYDR-4570 PO; -SODIUM CHLORIDE 0.9% INJ 10 ML SYR IV SCH; +VENL150C43 PO; +VITMTA PO
== END ==
LOC: M SMT 16:53
PROVIDERS: ATTEND Urology
DX: N20.0 Calculus of kidney (principal); Q61.5 Medullary cystic kidney

== ENCOUNTER 2020-09-01 06:36 | Day surgery (SDC) | payer MEDICARE, OTHER ==
[~2020-09-01] VITALS: Ht 157.5 cm; Wt 55.3 kg
[~2020-09-01 06:36] MED LIST changes: +LIDOCAINE 1% MDV 20ML VIAL SQ PRN; +LR 1,000 ML IV ONE; +ceFAZolin SOD 2 GM in IV 1 EA IV ONE
[2020-09-01] MEDS ORDERED: propofoL 200 MG/20 ML VIAL As Ordered ONE (07:19)
[2020-09-01] MEDS ORDERED: LIDOCAINE 2% 100MG/5ML SDV (FOR ANES.) As Ordered ONE (07:19)
[2020-09-01] MEDS ORDERED: MIDAZOLAM INJ 2MG/2ML VIAL (J2250 PER 1MG) As Ordered ONE (07:21)
[2020-09-01] MEDS ORDERED: fentaNYL 100 MCG/2 ML INJECTION (J3010) As Ordered ONE (07:21)
[2020-09-01] MEDS ORDERED: LIDOCAINE 2% 5ML JELLY UROJET As Ordered ONE (08:10)
--- NOTE | 2020-09-01 08:21 | REP ---
INDICATION: KUB PRIOR TO SDC COMPARISON: None. TECHNIQUE: Supine view of the abdomen and pelvis. FINDINGS: 13 mm calculus overlies the right kidney. No further urinary tract calcifications are identified. The bowel gas pattern is nonspecific although fecal stasis is suggested. No organomegaly. No foreign body. Skeletal structures intact. IMPRESSION: Presumed 13 mm nonobstructing right renal calculus. <Electronically signed by Shree Cox > 09/01/20 [id number]
[2020-09-01] MEDS ORDERED: FLOM0.4C39 PO (08:39)
[2020-09-01] MEDS ORDERED: OXYB5TAB10 PO (08:39)
[2020-09-01] MEDS ORDERED: OXYC1TAB23 PO (08:39)
[2020-09-01 08:51] LABS: HCG, SERUM QUALITATIVE NEGATIVE (NEGATIVE)
[2020-09-01] MEDS ORDERED: ONDANSETRON 4MG/2ML VIAL As Ordered ONE (09:27)
[2020-09-01] MEDS ORDERED: KETOROLAC 60MG 2ML VIAL As Ordered ONE (09:27)
[2020-09-01] MEDS ORDERED: dexameTHASONE 4 MG/ML 1ML VIAL (J1100 PER 1MG) As Ordered ONE (09:27)
[2020-09-01] MEDS ORDERED: LR 1,000 ML IV SCH (10:00)
[2020-09-01] MEDS ORDERED: ONDANSETRON 4MG/2ML VIAL IV PRN (10:00)
[2020-09-01] MEDS ORDERED: oxyCODONE 5MG TAB PO PRN (10:00)
[2020-09-01] MEDS ORDERED: oxyBUTYnin 5 MG TAB PO PRN (11:00)
[2020-09-01] MEDS ORDERED: PERCOCET 5MG/325MG TAB PO PRN (11:00)
[2020-09-01 11:45] VITALS: BP 115/66
--- NOTE | 2020-09-02 08:10 | RO ---
OPERATIVE NOTE DATE OF OPERATION: 09/01/2020 PREOPERATIVE DIAGNOSIS: Right kidney stone. POSTOPERATIVE DIAGNOSIS: Right kidney stone. PROCEDURES: Right extracorporeal shock wave lithotripsy, cystoscopy with right ureteral stent placement. SURGEON: Luis Ruffin MD. RIPSAWYER: None. ANESTHESIA: MAC. OPERATIVE INDICATIONS: This is a 25-year-old female who was found to have an approximately 1.4 cm right renal pelvis stone. She was brought to the operating room today for treatment. DESCRIPTION OF PROCEDURE: The patient was brought to the operating room and MAC anesthesia was administered. Prophylactic antibiotics were infused. She was then placed in the supine position and prepped and draped for a cystoscopy. At this point, rigid cystoscopy was performed with the patient frog-legged. A guidewire was then advanced up the right collecting system. I then advanced a 6 [place] x 22-32 cm JJ ureteral stent up the right collecting system along the wire. The wire was then removed and there were adequate curls of the stent in the right kidney as well as in the bladder. At this point, the cystoscope was removed. We then repositioned her in preparation for the right-sided extracorporeal shock wave lithotripsy. Fluoroscopy was utilized to monitor stone position and fragmentation throughout the procedure. Shock waves were then delivered to the right-sided kidney stone ungated. There were no arrhythmias. After 2500 shocks, the procedure was concluded. The stone did appear to fragment well. At this point, the patient was then awakened from anesthesia and transported to the recovery room in stable condition. ESTIMATED BLOOD LOSS: 0 mL. COMPLICATIONS: None. SPECIMENS: None. PLAN: The patient will follow-up in the urology clinic in a few weeks for stent removal. We will get imaging prior to assess for residual stone burden. LILLIE
== END 2020-09-01 11:46 | disposition home or self-care (01) ==
LOC: M SDC 06:36
PROVIDERS: ATTEND Urology
DX: N20.0 Calculus of kidney (principal); J45.909 Unspecified asthma, uncomplicated; Z88.1 Allergy status to other antibiotic agents; E84.9 Cystic fibrosis, unspecified; Z79.899 Other long term (current) drug therapy; Z79.51 Long term (current) use of inhaled steroids
CPT/HCPCS: 36415; 50590; 52332; 74018; 84703; C1769; C2617; J0690; J1100; J1885; J2250; J2405; J3010